=== PATIENT | male | born 1965 | race Caucasian/White ===

== ENCOUNTER 2016-12-12 03:50 | Inpatient (IN) | payer OTHER ==
[~2016-12-12] VITALS: Ht 175.3 cm; Wt 91.7 kg
[~2016-12-12 03:50] MED LIST: ASPCH81X PO; CETI10CA PO; CRAN500C2 PO; DOXA-10 PO; EPP3/2 IM; GABA1CAP5 PO; GINK40TA3 PO; GLUCPOW41 PO; MELO7.5T5 PO; MISC1CAP60 PO; PRLSR20 PO; [UNRECOGNIZED DRUG - OTHER] PO
[2016-12-12] MEDS ORDERED: HYDROmorphone INJ 1 MG/ML SYR IV STA (04:02)
[2016-12-12] MEDS ORDERED: SODIUM CHLORIDE 0.9% 1000ML 1,000 ML IV STA (04:02)
[2016-12-12] MEDS ORDERED: ONDANSETRON INJ 2 MG/ML 2 ML VIAL IV STA (04:02)
[2016-12-12 04:26] LABS: BASO % 1.1 %; BASO ABS # 0.07 K/uL (0-0.2); COMPLETE YES; EOS % 4.6 %; HEMATOCRIT 41.9 % (42-52); IG% 0.2 %; LYMPH % 36.6 %; LYMPH ABS # 2.39 K/uL (1.2-3.4); MEAN CELL VOLUME 88.2 fL (80-100); MEAN CORPUSCULAR HEMOGLOBIN 31.2 pg (25-34); MEAN CORPUSCULAR HGB CONC 35.3 g/dl (32-36); MEAN PLATELET VOLUME 10.2 fL (7.4-10.4); MONO % 10.4 %; NEUT % 47.1 %; PLATELET COUNT 273 K/uL (130-400); RED BLOOD COUNT 4.75 M/uL (4.7-6.1); WHITE BLOOD COUNT 6.53 K/uL (4.8-10.8)
[2016-12-12] MEDS ORDERED: HYDROmorphone INJ 0.5 MG/0.5 ML SYR IV STA (04:49)
[2016-12-12 04:50] LABS: ALKALINE PHOSPHATASE 101 U/L (45-117); ALT/SGPT 53 U/L (12-78); AST/SGOT 28 U/L (15-37); BLOOD UREA NITROGEN 9 mg/dl (7-18); BUN/CREATININE RATIO 12.3 (10-20); CALCIUM 8.9 mg/dl (8.5-10.1); CARBON DIOXIDE 23 mmol/L (21-32); CHLORIDE 107 mmol/L (98-107); CREATININE 0.76 mg/dl (0.60-1.40); GLUCOSE 107 mg/dl (70-99)
[2016-12-12 04:53] LABS: POTASSIUM 4.1 mmol/L (3.5-5.1); SODIUM 142 mmol/L (136-145)
[2016-12-12] MEDS ORDERED: HYDROmorphone INJ 2 MG/ML SYR/VIAL IV PRN (05:00)
--- NOTE | 2016-12-12 05:21 | EMERGENCY ROOM VISIT NOTE ---
History First contact with patient: 03:57 Chief Complaint: ABDOMINAL PAIN Stated Complaint: PANCREATITIS Nursing Triage Summary: Pt presents with c/o epigastric pain to back, nausea, bloating. Pt states sx began at 0100. Hx of pancreatitis, feels similar. History of Present Illness The patient is a 51 year old male who presents to the Emergency Room with complaints of severe sudden onset of epigastric pain that radiates to his back currently 9 out of 10. Nothing makes it better or worse. Complains of nausea. Symptoms feel similar to his prior pancreatitis. He is status post cholecystectomy. No real alcohol intake. Patient denies chest pain, dyspnea, fever, chills, urinary symptoms, diarrhea. No new Medications. Review of Systems See HPI for pertinent positives & negatives. A total of 10 systems reviewed and were otherwise negative. Past Medical/Surgical History Medical Problems: (1) Chronic back pain (2) Chronic prostatitis (3) Disc displacement, lumbar (4) Neurogenic bladder (5) Pancreatitis Surgical Problems: (1) H/O vasectomy (2) History of inguinal hernia repair, bilateral Cholecystectomy Family History Diabetes mellitus FH: heart disease FHx: cancer Stroke Social History Smoking Status: Never Smoker Alcohol Use: occasionally Drug Use: none Marital Status: Housing Status: lives with family Occupation Status: employed Current/Historical Medications Scheduled Aspirin (Aspirin Chewable), 81 MG PO QAM Cranberry (Vaccinium Macrocarp (Cranberry), 1,000 MG PO BID Doxazosin Mesylate (Doxazosin Mesylate), 8 MG PO HS Epinephrine (Epipen), 0.3 MG IM UD Gabapentin (Neurontin), 400 MG PO TID Ginkgo Biloba (Ginkoba), 40 MG PO QAM Chjrgishwby-Xekxnztdudt-Cernpb (Glucosamine & Chrondroiti), 1 TAB PO QAM Misc Natural Products (Saw [place]), 1 CAP PO QAM Omeprazole (Prilosec), 20 MG PO QAM Jad's Wort ([place] Perf ([place] Wort), 1,000 MG PO BID Scheduled PRN Cetirizine Hcl (Zyrtec Allergy), 10 MG PO DAILY PRN Meloxicam (Mobic), 7.5 MG PO BID PRN for Pain Allergies Coded Allergies: BEE STING (Verified Allergy, Severe, "PASSED OUT", 11/23/16) NO KNOWN DRUG ALLERGIES (Verified Allergy, Unknown, ., 11/23/16) Physical Exam Vital Signs Date Time Temp Pulse Resp B/P (MAP) Pulse Ox O2 Delivery O2 Flow Rate FiO2 12/12/16 04:35 94 14 93 12/12/16 04:31 170/108 12/12/16 04:20 96 19 96 12/12/16 04:12 Room Air 12/12/16 04:05 106 14 96 Room Air 12/12/16 04:05 103 12/12/16 04:04 140/119 12/12/16 03:53 36.4 123 18 174/100 94 Room Air Physical Exam VITALS: Vitals are noted on the nurse's note and reviewed by myself. Vital signs stable. GENERAL: White male who appears in pain, in no acute distress, nondiaphoretic, well-developed well-nourished. SKIN: The skin was without rashes, erythema, edema, or bruising. There is no tenting of the skin. Capillary reflex less than 2 seconds. HEAD: Normocephalic atraumatic. EARS: External auditory canals clear, tympanic membranes pearly eng without erythema or effusion bilaterally. EYES: Pupils equal round and reactive to light and accommodation. Conjunctivae without injection, sclerae without icterus. Extraocular movements intact. NOSE: Patent, turbinates without inflammation or discharge. MOUTH: Mucous membranes moist. . Pharynx without erythema or exudate. Uvula midline. Airway patent. Tongue does not deviate. NECK: Supple without nuchal rigidity. No lymphadenopathy. No thyromegaly. Cervical spine is nontender. No JVD. HEART: Regular rate and rhythm without murmurs gallops or rubs. LUNGS: Clear to auscultation bilaterally without wheezes, rales or rhonchi. No dullness to percussion. No retractions or accessory muscle use. ABDOMEN: Positive bowel sounds x 4. Normal tympanic percussion. Soft, tender to palpation epigastric region, no CVA tenderness, without masses or organomegaly. Yuan sign negative. No guarding or rebound tenderness. MUSCULOSKELETAL: No muscle atrophy, erythema, or edema noted. NEURO: Patient was alert and oriented to person place and time. Normal sensation to light and sharp touch. No focal neurological deficits. Medical Decision & Procedures Laboratory Results 12/12/16 04:00 Red Blood Count 4.75, Mean Corpuscular Volume 88.2, Mean Corpuscular Hemoglobin 31.2, Mean Corpuscular Hemoglobin Concent 35.3, Mean Platelet Volume 10.2, Neutrophils (%) (Auto) 47.1, Lymphocytes (%) (Auto) 36.6, Monocytes (%) (Auto) 10.4, Eosinophils (%) (Auto) 4.6, Basophils (%) (Auto) 1.1, Neutrophils # (Auto ) 3.08, Lymphocytes # (Auto) 2.39, Monocytes # (Auto) 0.68, Eosinophils # (Auto ) 0.30, Basophils # (Auto) 0.07 12/12/16 04:00 Test 12/12/16 04:00 12/12/16 04:12 12/12/16 04:13 White Blood Count 6.53 K/uL (4.8-10.8) Red Blood Count 4.75 M/uL (4.7-6.1) Hemoglobin 14.8 g/dL (14.0-18.0) Hematocrit 41.9 % (42-52) Mean Corpuscular Volume 88.2 fL (80-100) Mean Corpuscular Hemoglobin 31.2 pg (25-34) Mean Corpuscular Hemoglobin Concent 35.3 g/dl (32-36) Platelet Count 273 K/uL (130-400) Mean Platelet Volume 10.2 fL (7.4-10.4) Neutrophils (%) (Auto) 47.1 % Lymphocytes (%) (Auto) 36.6 % Monocytes (%) (Auto) 10.4 % Eosinophils (%) (Auto) 4.6 % Basophils (%) (Auto) 1.1 % Neutrophils # (Auto) 3.08 K/uL (1.4-6.5) Lymphocytes # (Auto) 2.39 K/uL (1.2-3.4) Monocytes # (Auto) 0.68 K/uL (0.11-0.59) Eosinophils # (Auto) 0.30 K/uL (0-0.5) Basophils # (Auto) 0.07 K/uL (0-0.2) RDW Standard Deviation 41.3 fL (36.4-46.3) RDW Coefficient of Variation 12.8 % (11.5-14.5) Immature Granulocyte % (Auto) 0.2 % Immature Granulocyte # (Auto) 0.01 K/uL (0.00-0.02) Anion Gap 12.0 mmol/L (3-11) Est Creatinine Clear Calc Drug Dose 128.7 ml/min Estimated GFR () 122.4 Estimated GFR (Non- 105.6 BUN/Creatinine Ratio 12.3 (10-20) Calcium Level 8.9 mg/dl (8.5-10.1) Total Bilirubin 0.4 mg/dl (0.2-1) Direct Bilirubin < 0.1 mg/dl (0-0.2) Aspartate Amino Transf (AST/SGOT) 28 U/L (15-37) Alanine Aminotransferase (ALT/SGPT) 53 U/L (12-78) Alkaline Phosphatase 101 U/L (45-117) Total Protein 7.4 gm/dl (6.4-8.2) Albumin 3.9 gm/dl (3.4-5.0) Lipase 1430 U/L (73-393) Chemistry Specimen Hemolysis Bedside Lactic Acid Venous 1.22 mmol/L (0.90-1.70) Bedside Troponin I < 0.030 ng/ml (0-0.045) Medications Administered Medications (Trade) Dose Ordered Sig/Fredis Route Start Time Stop Time Status Last Admin Dose Admin Hydromorphone HCl (Dilaudid Inj) 1 mg NOW STAT IV 12/12/16 04:02 12/12/16 04:05 DC 12/12/16 04:19 1 MG Ondansetron HCl (Zofran Inj) 4 mg NOW STAT IV 12/12/16 04:02 12/12/16 04:05 DC 12/12/16 04:22 4 MG Sodium Chloride 1,000 ml @ 999 mls/hr Q1H1M STAT IV 12/12/16 04:02 12/12/16 05:02 DC 12/12/16 04:18 999 MLS/HR ED Course Prior records/ancillary studies reviewed. Triage Nursing notes reviewed. Additional history obtained from family. The patient's history was concerning for abdominal pain. Differential diagnosis: Etiologies such as appendicitis, diverticulitis, PUD, biliary pathology, UTI, pancreatitis, obstruction, mesenteric ischemia, aortic pathology, infections, inflammatory bowel disease, renal colic, as well as others were entertained. Physical examination findings: As above. ER treatment provided: Dilaudid, Zofran, IV fluids On reassessment the patient felt better. Diagnostics interpreted by me: ECG: Normal sinus, normal intervals, left axis deviation, no acute ST-T wave changes, rate of 115. Impression sinus tachycardia with a left axis deviation interpreted by myself The labs revealed elevated lipase. Stable H&H. Negative troponin Imaging studies: Chest x-ray with no acute consolidation, pneumothorax or free air per my interpretation Ultrasound was read by stat radiology Consultation: A consultation was placed with the [facility], Dr. Ohara. The case was discussed and diagnostics were reviewed. The patient was evaluated in the ER for further treatment. Exam and history seem consistent with acute pancreatitis. Patient was still in severe amount of pain. He was given a few rounds of pain meds. He will be evaluated by medicine. He was hydrated as above. No leukocytosis. Stable H& H. Negative troponin. He's had prior CT imaging of his pancreas before. Patient does not drink alcohol. By the evaluation outlined above emergent etiologies such as appendicitis, diverticulitis, PUD, biliary pathology, UTI, obstruction, mesenteric ischemia , aortic pathology, infections, inflammatory bowel disease, renal colic, as well as others were deemed relatively unlikely. The pt informed about the findings as listed above. All questions were answered and pleased with the treatment. Case reviewed with my attending Medical Decision As above Impression Primary Impression: Pancreatitis Departure Information Dispostion Being Evaluated By Hospitalist Condition FAIR Referrals Ancelmo Roche, D.OMónica (PCP) Patient Instructions My [facility] Problem Qualifiers Primary Impression: Pancreatitis Chronicity: acute Pancreatitis type: unspecified pancreatitis type Acute pancreatitis complication: unspecified Qualified Codes: K85.90 - Acute pancreatitis without necrosis or infection, unspecified
--- NOTE | 2016-12-12 05:28 | DIAGNOSTIC IMAGING REPORT ---
CHEST ONE VIEW PORTABLE CLINICAL HISTORY: CHEST PAIN pain COMPARISON STUDY: 06/08/2012 FINDINGS: The bones soft tissues and hemidiaphragms are normal. The cardiomediastinal silhouette is normal. The lungs are clear. The pulmonary vasculature is normal. IMPRESSION: Negative chest. The above report was generated using voice recognition software. It may contain grammatical, syntax or spelling errors. Electronically signed by: Bala Zhang M.D. 12/12/2016 5:27 AM Dictated Date/Time: 12/12/2016 5:26 AM
--- NOTE | 2016-12-12 06:10 | DIAGNOSTIC IMAGING REPORT ---
ABDOMEN LIMITED (US) HISTORY: Pain. Nausea. ? pancreatitis. COMPARISON: CT 09/04/2015 FINDINGS: Pancreas: Poorly seen due to overlying bowel content. Liver: Fatty infiltration. Gallbladder: Prior cholecystectomy. CBD: 11 mm. Possibly in part due to patient's surgical post cholecystectomy history.. Right kidney: No hydronephrosis. IMPRESSION: Prior cholecystectomy. Prominence of the common bile duct possibly on a postoperative basis. Poor visibility of the pancreas due to overlying bowel content. The above report was generated using voice recognition software. It may contain grammatical, syntax or spelling errors. Electronically signed by: Bala Zhang M.D. 12/12/2016 6:09 AM Dictated Date/Time: 12/12/2016 6:07 AM
[2016-12-12] MEDS ORDERED: CETIRIZINE HCL 10 MG TAB PO PRN (06:15)
[2016-12-12] MEDS ORDERED: ALUMINUM/MAGNESIUM/SIMETH (MAALOX MAX) 30 ML UDC PO PRN (06:15)
[2016-12-12] MEDS ORDERED: MAGNESIUM HYDROXIDE SUSP 30 ML UDC PO PRN (06:15)
[2016-12-12] MEDS ORDERED: EPINEPHRINE ADULT AUTO-INJECT 0.3 MG SYR IM SCH (06:15)
[2016-12-12 06:23] LABS: URINE APPEARANCE CLEAR (CLEAR); URINE BILIRUBIN NEG (NEG); URINE COLOR YELLOW; URINE NITRITE NEG (NEG); URINE PH 6.5 (4.5-7.5); URINE SPECIFIC GRAVITY 1.016 (1.000-1.030); UROBILINOGEN NEG (NEG); ZZUR CULT IF INDIC CLEAN CATCH NO
[2016-12-12 06:26] LABS: MANUAL MICROSCOPIC REQUIRED? NO; REVIEW REQ? NO
[2016-12-12 06:55] VITALS: O2SAT 96; Ht 175.3 cm; Wt 91.7 kg
[2016-12-12] MEDS ORDERED: EPINEPHRINE ADULT AUTO-INJECT 0.3 MG SYR IM PRN (07:15)
[2016-12-12 07:30] VITALS: BP 160/106; PULSE 89; TEMP 37.2; O2SAT 92
--- NOTE | 2016-12-12 07:30 | HISTORY & PHYSICAL EXAMINATION ---
DATE OF ADMISSION: 12/12/2016 CHIEF COMPLAINT: Severe abdominal pain. HISTORY OF PRESENT ILLNESS: This is a 51-year-old male with past medical history significant for pancreatitis, chronic prostatitis, family history of diabetes, osteoarthritis, chronic back pain, history of neurogenic bladder and lumbar disc displacement, presents with abdominal pain. The patient states today morning he woke up around 1:00 with severe epigastric abdominal pain radiating to his back and radiating to his lower abdomen associated with some nausea, so he came to the ER .Currently pain is under control. Denies any vomiting, no diarrhea or constipation, no blood or black stools. He uses straight cath twice daily as he has a history of neurogenic bladder, history of chronic prostatitis and he thinks he may getting UTI. Denies any fever, chills, no cough, no chest pain, no shortness of breath, has some dry cough, no shortness of breath, has some sore throat, no difficulty swallowing, has some headaches, no dizziness, no blurred vision, no skin rash, no swelling in the legs. Currently resting comfortably and hemodynamically stable. ALLERGIES: BEE STINGS. PAST MEDICAL HISTORY: As mentioned above. PAST SURGICAL HISTORY: Cystoscopy, endoscopic ultrasound draining gallbladder sludge, status post laparoscopic cholecystectomy, hernia repair, vasectomy. MEDICATIONS: Currently the patient is on Meloxicam 7.5 mg p.o. daily, doxazosin 8 mg p.o. daily, omeprazole 20 mg p.o. daily, Flonase 2 sprays into each nostril daily, ginkgo biloba daily, epinephrine p.r.n. for allergies, saw [place] 1 tablet b.i.d., Neurontin 400 mg p.o. t.i.d., Zyrtec allergy 10 mg p.o. daily, cranberry 1000 mg p.o. daily, aspirin 81 mg p.o. daily, [place] Wort 1000 mg p.o. daily, Glucosamine chondroitin 1 tablet b.i.d. FAMILY HISTORY: Significant for father had rheumatoid arthritis, rheumatic arthropathy, skin cancer. Mother had stroke, Alzheimer disease, hypertension and diabetes, rheumatoid arthritis. Brother has skin cancer, heart attack and obesity. SOCIAL HISTORY: . No smoking history. Alcohol occasional. No drug use. REVIEW OF SYMPTOMS: As per HPI. PHYSICAL EXAMINATION: GENERAL: The patient is of moderate build, not in distress. VITAL SIGNS: Temperature 36.4, pulse 94, respiratory rate 14, blood pressure 175/108, oxygen 96% on room air. HEENT: No pallor, no icterus. Pupils equal, round react to light. NECK: No JVD, no neck masses, no carotid bruits. CARDIOVASCULAR: S1, S2 heard, regular rate and rhythm, no murmur, no gallop. RESPIRATORY SYSTEM: Normal AP diameter. No accessory muscle use. No wheezing, no crackles. ABDOMEN: Soft, bowel sounds present. Tenderness in the epigastric region. No guarding, no rigidity. No distention. CENTRAL NERVOUS SYSTEM: Cranial nerves II-XII grossly intact. Nonfocal. EXTREMITIES: No edema, no erythema. LABORATORY DATA: WBC 6.5, hemoglobin 14.8, hematocrit 41.9, platelets 273. Sodium 142, potassium 4.1, chloride 107, bicarbonate 23, BUN 9, creatinine 0.7 and serum glucose 107. Point of care lactic acid 1.22, calcium 8.9, total bilirubin 0.4, direct bilirubin less than 0.1, AST 28, ALT 23, alkaline phosphatase 101, point of care troponin I less than 0.03, lipase 14, 30. Chest x-ray, negative chest. Ultrasound of the abdomen unremarkable. ASSESSMENT AND PLAN: This is a 51-year-old male who presents with severe abdominal pain. 1. Several abdominal pain, possible pancreatitis, recurrent pancreatitis, lipase is elevated. Gallbladder ultrasound is unremarkable, but pancreas is poorly visible. Will place on aggressive IV fluids, IV pain medication, IV antiemetics, IV Zantac and consult GI for further recommendations . HAd EUS done after first episode of pancreatitis about a year ago, which showed gallbladder sludge and patient is status post cholecystectomy. 3. Neurogenic Bladder, straight cath as needed. 4. History of chronic prostatitis. We will check urinalysis and cultures. Continue doxazosin. 5. Gastroesophageal reflux disease. IV Zantac. 6. Family history of diabetes. We will check HbA1c levels. 7. Deep venous thrombosis prophylaxis, with Lovenox. DISPOSITION: Admit to medical floor. Expect to discharge home and follow with his family doctor. Level 1 full code. MTDD
[2016-12-12 08:24] LABS: ESTIMATED AVERAGE GLUCOSE 108 mg/dl; HA1C FLAG Normal (Normal)
[2016-12-12] MEDS: LACTATED RINGER'S 1000ML 1,000 ML IV SCH ×4 (08:30→21:47)
[2016-12-12 08:47] LABS: PROTHROMBIN TIME (PATIENT) 10.7 SECONDS (9.0-12.0)
[2016-12-12] MEDS ORDERED: INFLUENZA VIRUS QUAD VACCINE 0.5 ML SYR IM. ONE (09:00)
[2016-12-12] MEDS ORDERED: INFLUENZA ADMINISTRATION CHARGE ONE (09:00)
[2016-12-12 10:05] LABS: CHOLESTEROL/HDL RATIO 4.9
[2016-12-12] MEDS ORDERED: LACTATED RINGER'S 1000ML 1,000 ML IV SCH ×2 (10:15→11:15)
--- NOTE | 2016-12-12 10:33 | DIAGNOSTIC IMAGING REPORT ---
MRCP CLINICAL HISTORY: eval for p divisum (recurrent pancreatitits) pain TECHNIQUE: MRI multi axial acquisition COMPARISON STUDY: 04/01/2015 FINDINGS: Interval cholecystectomy. Signal characteristics of the liver are unremarkable. Signal characteristics of the pancreas are unremarkable. Prominence of the biliary ductal system on a postoperative basis. No evidence for choledocholithiasis. Spleen is uniform. Kidneys negative for hydronephrosis. No evidence of dilatation of the pancreatic duct. No significant upper abdominal adenopathy. No evidence for pancreas divisum IMPRESSION: 1. Findings consistent with a prior cholecystectomy. 2. Prominence of the common bile duct felt to be on a postoperative basis. 3. No evidence for choledocholithiasis. 4. Normal pancreas. 5. No evidence for pancreas divisum. The above report was generated using voice recognition software. It may contain grammatical, syntax or spelling errors. Electronically signed by: Bala Zhang M.D. 12/12/2016 10:31 AM Dictated Date/Time: 12/12/2016 10:24 AM
[2016-12-12] MEDS: ASPIRIN 81 MG ECTAB PO SCH (10:39)
[2016-12-12] MEDS: GABAPENTIN 400 MG CAP PO SCH ×3 (10:39→21:00)
[2016-12-12] MEDS: ENOXAPARIN 40 MG/0.4 ML SYR SQ SCH (10:40)
--- NOTE | 2016-12-12 10:43 | GASTROINTESTINAL CONSULTATION ---
DATE OF CONSULTATION: 12/12/2016 CHIEF COMPLAINT: Abdominal discomfort. HISTORY OF PRESENT ILLNESS: The patient is a 51-year-old male with a past medical history notable for chronic prostatitis, osteoarthritis and a neurogenic bladder who presented to the Emergency Room early this morning with a complaint of sudden onset of abdominal pain. The patient had a similar episode 1.5 years ago and ultimately underwent a cholecystectomy for biliary sludge. The patient reports that he was in his usual state of health until early this morning when he awoke suddenly with pain radiating towards his back. He denies having fevers, chills, sweats, difficulty with swallowing or pain with swallowing. The patient denies having dark sticky stool or bright red blood from the back side. There is no family history of recurrent or chronic pancreatitis. The patient does not know if there is a family history of pancreatic divisum or hypercholesterolemia. PAST MEDICAL HISTORY: 1. Chronic prostatitis. 2. Osteoarthritis. 3. Neurogenic bladder. OUTPATIENT MEDICATIONS: 1. Meloxicam 7.5 mg daily. 2. Doxazosin 8 mg daily. 3. Omeprazole 20 mg daily. 4. Flonase 2 mg preparatory 2 sprays twice daily. 5. Saw [place] 1 tablet twice daily. 6. Neurontin 40 mg 3 times daily. 7. Zyrtec 10 mg daily. 8. Cranberry 1000 mg daily. 9. Aspirin 81 mg daily. 10. Glucosamine 1 tablet twice daily. PAST SURGICAL HISTORY: 1. Cystoscopy: 2. Cholecystectomy. 3. Bilateral inguinal hernia repair. 4. Vasectomy. FAMILY HISTORY: Father with rheumatoid arthritis. Mother with CVA, Alzheimer disease, hypertension and diabetes. Brother with myocardial infarction and obesity. SOCIAL HISTORY: The patient is a nonsmoker. The patient does drink limited amounts of alcohol. ALLERGIES: BEES. REVIEW OF SYSTEMS: GENERAL: No fevers, no chills. CARDIAC: No chest pain. No shortness of breath. PULMONARY: No cough. ENDOCRINE: No polyuria, no polydipsia. MUSCULOSKELETAL: No new joint pains. No new muscle pains. PSYCHIATRIC: No depression. No suicidal ideation. GASTROINTESTINAL: Please see history of present illness. ENT: No difficulty swallowing. No changes in hearing. NEUROLOGIC: No headaches noted by patient. No double vision noted by patient. DERMATOLOGIC: No rashes noted by patient. PHYSICAL EXAMINATION: VITAL SIGNS: 36.4, pulse 102, respiratory rate 12, blood pressure is 137/98, pulse ox is 96% on room air. HEENT: No scleral icterus noted. No JVD noted. LUNGS: Clear to auscultation. CARDIAC: Tachycardic without murmur. ABDOMEN: Soft, tender to palpation. No peritoneal signs. EXTREMITIES: No edema noted. DERMATOLOGY: No rashes noted. NEUROLOGIC: Cranial nerves grossly intact. Motor grossly intact. LABORATORIES: White blood cell count 6.5, hemoglobin is 14.8, hematocrit is 41.9, platelet count is 273. Sodium is 142, potassium is 4.1, chloride is 107, BUN is 9, creatinine is 0.76, calcium is 8.9, total bilirubin 0.4, AST 28, ALT is 53, alkaline phosphatase 101, lipase 1430. PT is 10.7, INR 1.0. IMAGING STUDIES: Ultrasound dated December 12, CBD 11 mm. No obvious stones seen. IMPRESSION: A 51-year-old male presenting with a second episode of acute pancreatitis. The etiology could be from a number of things to consider such as pancreatic divisum, hypertriglyceridemia, or perhaps autoimmune pancreatitis. Another possibility would be retained gallstone given his prior history of cholecystectomy. Finally, the last consideration would be peptic ulcer disease given his use of meloxicam as an outpatient. RECOMMENDATIONS: 1. N.p.o. 2. Continue with IV hydration. I would recommend at least another liter bolus given his tachycardia. 3. MRCP ordered. 4. Lipid panel ordered. 5. EMMANUEL, total IgG total ordered. Please call with any questions or concerns. MTDD
[2016-12-12] MEDS: RANITIDINE IV 50 MG in DEXTROSE 5% 100ML 100 ML IV SCH ×2 (10:45→18:29)
[2016-12-12] MEDS: HYDROmorphone INJ 0.5 MG/0.5 ML SYR IV PRN ×2 (10:49→23:17)
[2016-12-12 14:57] VITALS: BP 157/98; PULSE 77; TEMP 36.8; O2SAT 93
[2016-12-12] MEDS: ONDANSETRON INJ 2 MG/ML 2 ML VIAL IV PRN ×2 (15:26→23:17)
[2016-12-12 15:30] VITALS: O2SAT 93
[2016-12-12 19:54] VITALS: TEMP 36.8
[2016-12-12] MEDS ORDERED: PROMETHAZINE HCL INJ 12.5 MG in SODIUM CHLORIDE 0.9% 50ML 50 ML IV PRN (20:00)
[2016-12-12] MEDS: DOXAZosin MESYLATE TAB 4 MG TAB PO SCH (21:00)
[2016-12-12 23:52] VITALS: BP 150/88; PULSE 84; TEMP 37; O2SAT 94
[2016-12-13] VITALS (11 sets, daily range): BP systolic 151–179; BP diastolic 92–123; PULSE 65–77; TEMP 36.4–36.6; O2SAT 92–95
[2016-12-13] MEDS: LACTATED RINGER'S 1000ML 1,000 ML IV SCH ×5 (02:05→22:23)
[2016-12-13] MEDS: RANITIDINE IV 50 MG in DEXTROSE 5% 100ML 100 ML IV SCH (02:05)
[2016-12-13 07:00] LABS: BASO % 0.7 %; BASO ABS # 0.04 K/uL (0-0.2); COMPLETE YES; EOS % 2.6 %; HEMATOCRIT 37.3 % (42-52); IG% 0.2 %; LYMPH % 31.2 %; LYMPH ABS # 1.82 K/uL (1.2-3.4); MEAN CORPUSCULAR HEMOGLOBIN 30.7 pg (25-34); MEAN CORPUSCULAR HGB CONC 34.9 g/dl (32-36); MEAN PLATELET VOLUME 10.1 fL (7.4-10.4); MONO % 10.6 %; NEUT % 54.7 %; PLATELET COUNT 236 K/uL (130-400); RED BLOOD COUNT 4.24 M/uL (4.7-6.1); WHITE BLOOD COUNT 5.84 K/uL (4.8-10.8)
[2016-12-13 07:31] LABS: BUN/CREATININE RATIO 10.7 (10-20); CALCIUM 8.4 mg/dl (8.5-10.1); CREATININE 0.64 mg/dl (0.60-1.40); MAGNESIUM 1.9 mg/dl (1.8-2.4); POTASSIUM 3.4 mmol/L (3.5-5.1)
--- NOTE | 2016-12-13 09:01 | Gastroenterology Progress Note ---
Progress Note Date of Service: Dec 13, 2016 Subjective Pt evaluation today including: conversation w/ patient, physical exam The patient notes that his symptoms seem to be much better today. He still some epigastric discomfort but is now passing some flatus no bowel movements as of yet. Review of Systems Constitutional: No fever, No sweats Respiratory: + problem reported, No cough, No wheezing, No dyspnea at rest Cardiac: No chest pain, No PND, No palpitations Medications Current Inpatient Medications Medications (Trade) Dose Ordered Sig/Fredis Route Start Time Stop Time Status Last Admin Dose Admin Enoxaparin Sodium (Lovenox Inj) 40 mg Q24H SQ 12/12/16 09:00 01/11/17 08:59 12/12/16 10:40 40 MG Acetaminophen (Tylenol Tab) 650 mg Q4H PRN PO 12/12/16 06:15 01/11/17 06:14 Al Hydrox/Mg Hydrox/Simethicone (Maalox Max Susp) 15 ml Q4H PRN PO 12/12/16 06:15 01/11/17 06:14 Magnesium Hydroxide (Milk Of Magnesia Susp) 30 ml Q6H PRN PO 12/12/16 06:15 01/11/17 06:14 Ondansetron HCl (Zofran Inj) 4 mg Q6H PRN IV 12/12/16 06:15 01/11/17 06:14 12/12/16 23:17 4 MG Lactated Ringer's 1,000 ml @ 200 mls/hr Q5H IV 12/12/16 06:15 01/11/17 06:14 12/13/16 07:31 200 MLS/HR Hydromorphone HCl (Dilaudid Inj) 0.5 mg Q3HWA PRN IV 12/12/16 06:15 12/26/16 06:14 12/12/16 23:17 0.5 MG Aspirin (Ecotrin Tab) 81 mg QAM PO 12/12/16 09:00 01/11/17 08:59 12/12/16 10:39 81 MG Gabapentin (Neurontin Cap) 400 mg TID PO 12/12/16 09:00 01/11/17 08:59 12/12/16 13:45 400 MG Cetirizine HCl (zyrTEC TAB) 10 mg DAILY PRN PO 12/12/16 06:15 11/27/17 06:14 Doxazosin Mesylate (Cardura Tab) 8 mg HS PO 12/12/16 21:00 01/11/17 20:59 Epinephrine (Epipen) 0.3 mg UD PRN IM 12/12/16 07:15 01/11/17 07:14 Famotidine 20 mg/ Syringe 5 ml @ 2.5 mls/min BID IV 12/13/16 09:00 01/12/17 08:59 Promethazine HCl 12.5 mg/Sodium Chloride 50.5 ml @ 204 mls/hr Q6H PRN IV 12/12/16 20:00 01/11/17 19:59 12/12/16 20:29 204 MLS/HR Objective Vital Signs Date Time Temp Pulse Resp B/P (MAP) Pulse Ox O2 Delivery O2 Flow Rate FiO2 12/13/16 07:00 36.6 77 16 151/94 (113) 94 Room Air 12/12/16 23:52 37.0 84 16 150/88 (108) 94 Room Air 12/12/16 23:15 Room Air 12/12/16 19:54 36.8 12/12/16 15:30 93 Room Air 12/12/16 14:57 36.8 77 18 157/98 (117) 93 Room Air Physical Exam General Appearance: no apparent distress Eyes: PERRL Neck: no JVD Respiratory/Chest: lungs clear Cardiovascular: regular rate, rhythm, no edema Abdomen: soft, + tenderness (mild tenderness, much improved from yesterday) Neurologic/Psych: oriented x 3 Skin: no jaundice Laboratory Results Last 24 Hours Test 12/12/16 09:12 12/13/16 06:25 Triglycerides Level 159 mg/dl Cholesterol Level 173 mg/dl HDL Cholesterol 35 mg/dl LDL Cholesterol, Calculated 106 mg/dl VLDL Cholesterol, Calculated 32 mg/dl Cholesterol/HDL Ratio 4.9 White Blood Count 5.84 K/uL Red Blood Count 4.24 M/uL Hemoglobin 13.0 g/dL Hematocrit 37.3 % Mean Corpuscular Volume 88.0 fL Mean Corpuscular Hemoglobin 30.7 pg Mean Corpuscular Hemoglobin Concent 34.9 g/dl Platelet Count 236 K/uL Mean Platelet Volume 10.1 fL Neutrophils (%) (Auto) 54.7 % Lymphocytes (%) (Auto) 31.2 % Monocytes (%) (Auto) 10.6 % Eosinophils (%) (Auto) 2.6 % Basophils (%) (Auto) 0.7 % Neutrophils # (Auto) 3.20 K/uL Lymphocytes # (Auto) 1.82 K/uL Monocytes # (Auto) 0.62 K/uL Eosinophils # (Auto) 0.15 K/uL Basophils # (Auto) 0.04 K/uL RDW Standard Deviation 40.6 fL RDW Coefficient of Variation 12.7 % Immature Granulocyte % (Auto) 0.2 % Immature Granulocyte # (Auto) 0.01 K/uL Sodium Level 140 mmol/L Potassium Level 3.4 mmol/L Chloride Level 105 mmol/L Carbon Dioxide Level 28 mmol/L Anion Gap 7.0 mmol/L Blood Urea Nitrogen 7 mg/dl Creatinine 0.64 mg/dl Est Creatinine Clear Calc Drug Dose 152.8 ml/min Estimated GFR () 131.4 Estimated GFR (Non- 113.4 BUN/Creatinine Ratio 10.7 Random Glucose 91 mg/dl Calcium Level 8.4 mg/dl Magnesium Level 1.9 mg/dl Lipase 146 U/L Assessment and Plan 51-year-old male with idiopathic pancreatitis. His symptoms do seem to be somewhat improved today. Given this I would suggest that you advance him to a clear liquid diet today and continue with IV hydration. Recommendations Advance to a clear liquid diet today Continue with IV hydration Outpatient endoscopic ultrasound in 6-8 weeks Autoimmune studies still pending Please call with any questions or concerns today
[2016-12-13] MEDS: ENOXAPARIN 40 MG/0.4 ML SYR SQ SCH (09:47)
[2016-12-13] MEDS: GABAPENTIN 400 MG CAP PO SCH ×3 (09:47→20:57)
[2016-12-13] MEDS: ASPIRIN 81 MG ECTAB PO SCH (09:48)
[2016-12-13] MEDS: FAMOTIDINE IV INJ 20 MG in SYRINGE 3 ML IV SCH ×2 (10:04→21:01)
--- NOTE | 2016-12-13 11:05 | Progress Note ---
Medicine Progress Note Date & Time of Visit: Dec 13, 2016 at 10:55 . Subjective Better. Abdominal pain improved. No nausea or vomiting. No diarrhea. No fever. No chest pain. No cough or SOB. Ambulating. . Objective Last 8 Hrs Date Time Temp Pulse Resp B/P (MAP) Pulse Ox O2 Delivery O2 Flow Rate FiO2 12/13/16 07:00 36.6 77 16 151/94 (113) 94 Room Air Physical Exam: General- no distress Eyes- anicteric Lungs- clear Heart- RRR Abdomen- quiet bowel sounds, nondistended, minimal epigastric tenderness without rebound or guarding Extremities- no pretibial edema or calf tenderness Neuro- alert . Laboratory Results: Last 24 Hours Test 12/13/16 06:25 White Blood Count 5.84 K/uL Red Blood Count 4.24 M/uL Hemoglobin 13.0 g/dL Hematocrit 37.3 % Mean Corpuscular Volume 88.0 fL Mean Corpuscular Hemoglobin 30.7 pg Mean Corpuscular Hemoglobin Concent 34.9 g/dl Platelet Count 236 K/uL Mean Platelet Volume 10.1 fL Neutrophils (%) (Auto) 54.7 % Lymphocytes (%) (Auto) 31.2 % Monocytes (%) (Auto) 10.6 % Eosinophils (%) (Auto) 2.6 % Basophils (%) (Auto) 0.7 % Neutrophils # (Auto) 3.20 K/uL Lymphocytes # (Auto) 1.82 K/uL Monocytes # (Auto) 0.62 K/uL Eosinophils # (Auto) 0.15 K/uL Basophils # (Auto) 0.04 K/uL RDW Standard Deviation 40.6 fL RDW Coefficient of Variation 12.7 % Immature Granulocyte % (Auto) 0.2 % Immature Granulocyte # (Auto) 0.01 K/uL Sodium Level 140 mmol/L Potassium Level 3.4 mmol/L Chloride Level 105 mmol/L Carbon Dioxide Level 28 mmol/L Anion Gap 7.0 mmol/L Blood Urea Nitrogen 7 mg/dl Creatinine 0.64 mg/dl Est Creatinine Clear Calc Drug Dose 152.8 ml/min Estimated GFR () 131.4 Estimated GFR (Non- 113.4 BUN/Creatinine Ratio 10.7 Random Glucose 91 mg/dl Calcium Level 8.4 mg/dl Magnesium Level 1.9 mg/dl Lipase 146 U/L Assessment & Plan PANCREATITIS Presented with severe abdominal pain and nausea. Previous episode of gallstone pancreatitis Mar 2015, s/p lap cholecystectomy May 2015. Lipase 1430. Initially managed with bowel rest, IV fluids, analgesics. GI consulted. US showed postsurgical changes, mild prominence of CBD. MRCP showed similar prominence of CBD, no choledocholithiasis. Clinically improved. Lipase today 146. Start clear liquids. Continue IV fluids. Outpatient EUS recommended by GI. NEUROGENIC BLADDER Continue straight cath regimen. VTE PROPHYLAXIS SCD's. Ambulate. DISPOSITION Expected discharge to home. Family Medicine follow-up with Dr. Ancelmo Roche. Follow-up with Florin RILEY. . Current Inpatient Medications: Current Inpatient Medications Medications (Trade) Dose Ordered Sig/Fredis Route Start Time Stop Time Status Last Admin Dose Admin Enoxaparin Sodium (Lovenox Inj) 40 mg Q24H SQ 12/12/16 09:00 01/11/17 08:59 12/13/16 09:47 40 MG Acetaminophen (Tylenol Tab) 650 mg Q4H PRN PO 12/12/16 06:15 01/11/17 06:14 Al Hydrox/Mg Hydrox/Simethicone (Maalox Max Susp) 15 ml Q4H PRN PO 12/12/16 06:15 01/11/17 06:14 Magnesium Hydroxide (Milk Of Magnesia Susp) 30 ml Q6H PRN PO 12/12/16 06:15 01/11/17 06:14 Ondansetron HCl (Zofran Inj) 4 mg Q6H PRN IV 12/12/16 06:15 01/11/17 06:14 12/12/16 23:17 4 MG Lactated Ringer's 1,000 ml @ 200 mls/hr Q5H IV 12/12/16 06:15 01/11/17 06:14 12/13/16 07:31 200 MLS/HR Hydromorphone HCl (Dilaudid Inj) 0.5 mg Q3HWA PRN IV 12/12/16 06:15 12/26/16 06:14 12/12/16 23:17 0.5 MG Aspirin (Ecotrin Tab) 81 mg QAM PO 12/12/16 09:00 01/11/17 08:59 12/13/16 09:48 81 MG Gabapentin (Neurontin Cap) 400 mg TID PO 12/12/16 09:00 01/11/17 08:59 12/13/16 09:47 400 MG Cetirizine HCl (zyrTEC TAB) 10 mg DAILY PRN PO 12/12/16 06:15 01/11/17 06:14 Doxazosin Mesylate (Cardura Tab) 8 mg HS PO 12/12/16 21:00 01/11/17 20:59 Epinephrine (Epipen) 0.3 mg UD PRN IM 12/12/16 07:15 01/11/17 07:14 Famotidine 20 mg/ Syringe 5 ml @ 2.5 mls/min BID IV 12/13/16 09:00 01/12/17 08:59 12/13/16 10:04 2.5 MLS/MIN Promethazine HCl 12.5 mg/Sodium Chloride 50.5 ml @ 204 mls/hr Q6H PRN IV 12/12/16 20:00 01/11/17 19:59 12/12/16 20:29 204 MLS/HR
[2016-12-13] MEDS: DOXAZosin MESYLATE TAB 4 MG TAB PO SCH (20:57)
[2016-12-14] VITALS (7 sets, daily range): BP systolic 152–165; BP diastolic 93–105; PULSE 79–99; TEMP 36.2–37.3; O2SAT 93–95
[2016-12-14] MEDS: LACTATED RINGER'S 1000ML 1,000 ML IV SCH ×3 (03:26→14:13)
[2016-12-14 06:24] LABS: BASO % 1.2 %; BASO ABS # 0.06 K/uL (0-0.2); COMPLETE YES; EOS % 4.7 %; HEMATOCRIT 40.5 % (42-52); IG% 0.4 %; LYMPH % 32.8 %; LYMPH ABS # 1.69 K/uL (1.2-3.4); MEAN CORPUSCULAR HEMOGLOBIN 30.2 pg (25-34); MEAN CORPUSCULAR HGB CONC 34.3 g/dl (32-36); MEAN PLATELET VOLUME 9.7 fL (7.4-10.4); MONO % 11.6 %; NEUT % 49.3 %; PLATELET COUNT 262 K/uL (130-400); WHITE BLOOD COUNT 5.16 K/uL (4.8-10.8)
[2016-12-14 07:02] LABS: BLOOD UREA NITROGEN 7 mg/dl (7-18); BUN/CREATININE RATIO 8.7 (10-20); CALCIUM 8.5 mg/dl (8.5-10.1); CARBON DIOXIDE 26 mmol/L (21-32); CHLORIDE 107 mmol/L (98-107); CREATININE 0.77 mg/dl (0.60-1.40); GLUCOSE 93 mg/dl (70-99); SODIUM 141 mmol/L (136-145)
[2016-12-14 07:28] LABS: POTASSIUM 3.4 mmol/L (3.5-5.1)
[2016-12-14] MEDS: ACETAMINOPHEN 325 MG TAB PO PRN ×2 (07:41→22:31)
--- NOTE | 2016-12-14 09:29 | Gastroenterology Progress Note ---
Progress Note Date of Service: Dec 14, 2016 Subjective Pt evaluation today including: conversation w/ patient, physical exam, chart review, lab review Pt seen and evaluated, chart reviewed. Diet was advanced to clear liquid, pt tolerated. This AM he notes no epigastric pain unless there is deep palpation. Reports no n/v, no n/v after PO intake. No fever, chills, CP, SOB. Has shingles. Wants to advance diet, wants to go home. Review of Systems Constitutional: No fever, No chills Respiratory: No cough, No shortness of breath Cardiac: No chest pain, No edema Abdomen: No pain, No nausea, No vomiting, No diarrhea, No constipation, No GI bleeding Medications Current Inpatient Medications Medications (Trade) Dose Ordered Sig/Fredis Route Start Time Stop Time Status Last Admin Dose Admin Enoxaparin Sodium (Lovenox Inj) 40 mg Q24H SQ 12/12/16 09:00 01/11/17 08:59 12/13/16 09:47 40 MG Acetaminophen (Tylenol Tab) 650 mg Q4H PRN PO 12/12/16 06:15 01/11/17 06:14 12/14/16 07:41 650 MG Al Hydrox/Mg Hydrox/Simethicone (Maalox Max Susp) 15 ml Q4H PRN PO 12/12/16 06:15 01/11/17 06:14 Magnesium Hydroxide (Milk Of Magnesia Susp) 30 ml Q6H PRN PO 12/12/16 06:15 01/11/17 06:14 Ondansetron HCl (Zofran Inj) 4 mg Q6H PRN IV 12/12/16 06:15 01/11/17 06:14 12/12/16 23:17 4 MG Lactated Ringer's 1,000 ml @ 200 mls/hr Q5H IV 12/12/16 06:15 01/11/17 06:14 12/14/16 07:41 200 MLS/HR Hydromorphone HCl (Dilaudid Inj) 0.5 mg Q3HWA PRN IV 12/12/16 06:15 12/26/16 06:14 12/12/16 23:17 0.5 MG Aspirin (Ecotrin Tab) 81 mg QAM PO 12/12/16 09:00 01/11/17 08:59 12/13/16 09:48 81 MG Gabapentin (Neurontin Cap) 400 mg TID PO 12/12/16 09:00 01/11/17 08:59 12/13/16 20:57 400 MG Cetirizine HCl (zyrTEC TAB) 10 mg DAILY PRN PO 12/12/16 06:15 01/11/17 06:14 Doxazosin Mesylate (Cardura Tab) 8 mg HS PO 12/12/16 21:00 01/11/17 20:59 12/13/16 20:57 8 MG Epinephrine (Epipen) 0.3 mg UD PRN IM 12/12/16 07:15 01/11/17 07:14 Famotidine 20 mg/ Syringe 5 ml @ 2.5 mls/min BID IV 12/13/16 09:00 01/12/17 08:59 12/13/16 21:01 2.5 MLS/MIN Promethazine HCl 12.5 mg/Sodium Chloride 50.5 ml @ 204 mls/hr Q6H PRN IV 12/12/16 20:00 01/11/17 19:59 12/12/16 20:29 204 MLS/HR Valacyclovir HCl (Valtrex Tab) 1,000 mg TID PO 12/14/16 09:00 12/24/16 08:59 Objective Vital Signs Date Time Temp Pulse Resp B/P (MAP) Pulse Ox O2 Delivery O2 Flow Rate FiO2 12/14/16 07:28 Room Air 12/14/16 07:14 36.8 79 19 164/105 (124) 95 Room Air 12/14/16 00:15 Room Air 12/13/16 22:59 36.4 65 16 155/95 (115) 92 Room Air 12/13/16 16:13 170/94 (119) 12/13/16 15:45 95 Room Air 12/13/16 15:30 179/123 (141) 12/13/16 15:09 36.6 70 18 160/104 (122) 95 Room Air 174/106 (128) 12/13/16 14:12 154/102 (119) 12/13/16 14:04 77 16 175/100 (125) 95 Room Air 169/108 (128) 12/13/16 12:42 164/96 (118) 12/13/16 12:25 36.6 76 16 156/92 (113) 95 Room Air Physical Exam General Appearance: no apparent distress Eyes: PERRL ENT: hearing grossly normal Neck: supple Respiratory/Chest: lungs clear Cardiovascular: regular rate, rhythm Abdomen: normal bowel sounds, soft Neurologic/Psych: alert, normal mood/affect, oriented x 3 Skin: normal color Laboratory Results Last 24 Hours Test 12/14/16 06:12 12/14/16 07:05 White Blood Count 5.16 K/uL Red Blood Count 4.60 M/uL Hemoglobin 13.9 g/dL Hematocrit 40.5 % Mean Corpuscular Volume 88.0 fL Mean Corpuscular Hemoglobin 30.2 pg Mean Corpuscular Hemoglobin Concent 34.3 g/dl Platelet Count 262 K/uL Mean Platelet Volume 9.7 fL Neutrophils (%) (Auto) 49.3 % Lymphocytes (%) (Auto) 32.8 % Monocytes (%) (Auto) 11.6 % Eosinophils (%) (Auto) 4.7 % Basophils (%) (Auto) 1.2 % Neutrophils # (Auto) 2.55 K/uL Lymphocytes # (Auto) 1.69 K/uL Monocytes # (Auto) 0.60 K/uL Eosinophils # (Auto) 0.24 K/uL Basophils # (Auto) 0.06 K/uL RDW Standard Deviation 40.6 fL RDW Coefficient of Variation 12.7 % Immature Granulocyte % (Auto) 0.4 % Immature Granulocyte # (Auto) 0.02 K/uL Sodium Level 141 mmol/L Potassium Level mmol/L 3.4 mmol/L Chloride Level 107 mmol/L Carbon Dioxide Level 26 mmol/L Anion Gap 8.0 mmol/L Blood Urea Nitrogen 7 mg/dl Creatinine 0.77 mg/dl Est Creatinine Clear Calc Drug Dose 127.0 ml/min Estimated GFR () 121.8 Estimated GFR (Non- 105.1 BUN/Creatinine Ratio 8.7 Random Glucose 93 mg/dl Calcium Level 8.5 mg/dl Magnesium Level mg/dl 2.0 mg/dl Assessment and Plan 51-year-old male with idiopathic pancreatitis. His symptoms do seem to be somewhat improved yesterday on evaluation and diet was advanced to clear liquid --> pt tolerated, denies n/v only has abd pain with deep palpation Advance to low fat diet as tolerated Continue with IV hydration until discharge Outpatient endoscopic ultrasound in 6-8 weeks Follow up autoimmune studies Please call with any questions or concerns, GI will follow during admission I performed a history and physical examination of the patient, including specifically on physical exam - soft abdomen, and my impression and plan are as below. I have discussed the patient's management with Miranda. Please refer to the physician admissions assistant's note for the documented findings and plan of care. Patient with mild idiopathic pancreatitis but report occasional use of liquor. He feels better with down trending BUN and Hct. Tolerated liquids. Will need EUS as outpatient. Avoid Alcohol.
[2016-12-14] MEDS: FAMOTIDINE IV INJ 20 MG in SYRINGE 3 ML IV SCH ×2 (09:42→20:36)
[2016-12-14] MEDS: GABAPENTIN 400 MG CAP PO SCH ×3 (09:42→20:31)
[2016-12-14] MEDS: ASPIRIN 81 MG ECTAB PO SCH (09:42)
[2016-12-14] MEDS: ENOXAPARIN 40 MG/0.4 ML SYR SQ SCH (09:43)
--- NOTE | 2016-12-14 10:39 | Progress Note ---
Medicine Progress Note Date & Time of Visit: Dec 14, 2016 at 10:25 . Subjective Noted to have vesicular rash last night. Started on valacyclovir. Has some itching from the rash, but no severe pain. Abdominal pain improved. No nausea or vomiting. Moved bowels. No fever. Continuing straight caths for urinary retention. . Objective Last 8 Hrs Date Time Temp Pulse Resp B/P (MAP) Pulse Ox O2 Delivery O2 Flow Rate FiO2 12/14/16 10:07 36.2 96 20 154/93 (113) 95 Room Air 12/14/16 07:28 Room Air 12/14/16 07:14 36.8 79 19 164/105 (124) 95 Room Air Physical Exam: General- no distress Eyes- anicteric Lungs- clear Heart- RRR Abdomen- + bowel sounds, nondistended, mild epigastric tenderness without rebound or guarding Extremities- no pretibial edema or calf tenderness Neuro- alert . Laboratory Results: Last 24 Hours Test 12/14/16 06:12 12/14/16 07:05 White Blood Count 5.16 K/uL Red Blood Count 4.60 M/uL Hemoglobin 13.9 g/dL Hematocrit 40.5 % Mean Corpuscular Volume 88.0 fL Mean Corpuscular Hemoglobin 30.2 pg Mean Corpuscular Hemoglobin Concent 34.3 g/dl Platelet Count 262 K/uL Mean Platelet Volume 9.7 fL Neutrophils (%) (Auto) 49.3 % Lymphocytes (%) (Auto) 32.8 % Monocytes (%) (Auto) 11.6 % Eosinophils (%) (Auto) 4.7 % Basophils (%) (Auto) 1.2 % Neutrophils # (Auto) 2.55 K/uL Lymphocytes # (Auto) 1.69 K/uL Monocytes # (Auto) 0.60 K/uL Eosinophils # (Auto) 0.24 K/uL Basophils # (Auto) 0.06 K/uL RDW Standard Deviation 40.6 fL RDW Coefficient of Variation 12.7 % Immature Granulocyte % (Auto) 0.4 % Immature Granulocyte # (Auto) 0.02 K/uL Sodium Level 141 mmol/L Potassium Level mmol/L 3.4 mmol/L Chloride Level 107 mmol/L Carbon Dioxide Level 26 mmol/L Anion Gap 8.0 mmol/L Blood Urea Nitrogen 7 mg/dl Creatinine 0.77 mg/dl Est Creatinine Clear Calc Drug Dose 127.0 ml/min Estimated GFR () 121.8 Estimated GFR (Non- 105.1 BUN/Creatinine Ratio 8.7 Random Glucose 93 mg/dl Calcium Level 8.5 mg/dl Magnesium Level mg/dl 2.0 mg/dl Assessment & Plan PANCREATITIS Presented with severe abdominal pain and nausea. Previous episode of gallstone pancreatitis Mar 2015, s/p lap cholecystectomy May 2015. Lipase 1430. Initially managed with bowel rest, IV fluids, analgesics. GI consulted. US showed postsurgical changes, mild prominence of CBD. MRCP showed similar prominence of CBD, no choledocholithiasis. Clinically improved. Lipase yesterday 146. Tolerating clear liquids. Advance diet. Continue IV fluids. Outpatient EUS recommended by GI. NEUROGENIC BLADDER Continue straight cath regimen. HERPES ZOSTER Small cluster vesicular lesions left back (paraspinal / lumbar). Rx with valacyclovir 1000 mg TID x 7 days. Consider vaccine per guidelines after resolution. HYPERTENSION [added entry SHERLEY 12/14/16 @ 10:40] BP's fluctuating. IV fluids, stress, discomfort probably contributing factor. Missed one dose of doxazosin due to GI symptoms; resumed last night. Follow. HYPOKALEMIA [added entry SHERLEY 12/14/16 @ 10:40] K 3.4. Replace. Follow. VTE PROPHYLAXIS SCD's. Ambulate. DISPOSITION Expected discharge to home. Family Medicine follow-up with Dr. Ancelmo Roche. Follow-up with Florin RILEY. . Current Inpatient Medications: Current Inpatient Medications Medications (Trade) Dose Ordered Sig/Fredis Route Start Time Stop Time Status Last Admin Dose Admin Enoxaparin Sodium (Lovenox Inj) 40 mg Q24H SQ 12/12/16 09:00 01/11/17 08:59 12/14/16 09:43 40 MG Acetaminophen (Tylenol Tab) 650 mg Q4H PRN PO 12/12/16 06:15 01/11/17 06:14 12/14/16 07:41 650 MG Al Hydrox/Mg Hydrox/Simethicone (Maalox Max Susp) 15 ml Q4H PRN PO 12/12/16 06:15 01/11/17 06:14 Magnesium Hydroxide (Milk Of Magnesia Susp) 30 ml Q6H PRN PO 12/12/16 06:15 01/11/17 06:14 Ondansetron HCl (Zofran Inj) 4 mg Q6H PRN IV 12/12/16 06:15 01/11/17 06:14 12/12/16 23:17 4 MG Lactated Ringer's 1,000 ml @ 200 mls/hr Q5H IV 12/12/16 06:15 01/11/17 06:14 12/14/16 07:41 200 MLS/HR Hydromorphone HCl (Dilaudid Inj) 0.5 mg Q3HWA PRN IV 12/12/16 06:15 12/26/16 06:14 12/12/16 23:17 0.5 MG Aspirin (Ecotrin Tab) 81 mg QAM PO 12/12/16 09:00 01/11/17 08:59 12/14/16 09:42 81 MG Gabapentin (Neurontin Cap) 400 mg TID PO 12/12/16 09:00 01/11/17 08:59 12/14/16 09:42 400 MG Cetirizine HCl (zyrTEC TAB) 10 mg DAILY PRN PO 12/12/16 06:15 01/11/17 06:14 Doxazosin Mesylate (Cardura Tab) 8 mg HS PO 12/12/16 21:00 01/11/17 20:59 12/13/16 20:57 8 MG Epinephrine (Epipen) 0.3 mg UD PRN IM 12/12/16 07:15 01/11/17 07:14 Famotidine 20 mg/ Syringe 5 ml @ 2.5 mls/min BID IV 12/13/16 09:00 01/12/17 08:59 12/14/16 09:42 2.5 MLS/MIN Promethazine HCl 12.5 mg/Sodium Chloride 50.5 ml @ 204 mls/hr Q6H PRN IV 12/12/16 20:00 01/11/17 19:59 12/12/16 20:29 204 MLS/HR Valacyclovir HCl (Valtrex Tab) 1,000 mg TID PO 12/14/16 09:00 12/24/16 08:59 12/14/16 09:43 1,000 MG
[2016-12-14] MEDS ORDERED: POTASSIUM CHLORIDE 10 MEQ TABCR PO ONE (11:15)
[2016-12-14] MEDS: DOXAZosin MESYLATE TAB 4 MG TAB PO SCH (20:31)
[2016-12-14] MEDS: POTASSIUM CHLORIDE 10 MEQ TABCR PO SCH (20:32)
[2016-12-14 22:47] LABS: URINE APPEARANCE CLOUDY (CLEAR); URINE BILIRUBIN NEG (NEG); URINE COLOR RED; URINE NITRITE POS (NEG); URINE PH 8.5 (4.5-7.5); URINE SPECIFIC GRAVITY 1.008 (1.000-1.030); UROBILINOGEN NEG (NEG); ZZUR CULT IF INDIC CLEAN CATCH YES
[2016-12-14 22:48] LABS: MANUAL MICROSCOPIC REQUIRED? NO; REVIEW REQ? NO
[2016-12-14 22:49] LABS: SULFASALICYLIC ACID POS (NEG)
[2016-12-15] MEDS: LACTATED RINGER'S 1000ML 1,000 ML IV SCH (00:13)
[2016-12-15] MEDS ORDERED: PIPERACILLIN/TAZOBACTAM 4.5 GM/100ML D5W IV STA (03:12)
[2016-12-15 06:02] LABS: HEMATOCRIT 37.7 % (42-52); MEAN CELL VOLUME 87.5 fL (80-100); MEAN CORPUSCULAR HEMOGLOBIN 29.7 pg (25-34); MEAN PLATELET VOLUME 9.9 fL (7.4-10.4); PLATELET COUNT 252 K/uL (130-400); RED BLOOD COUNT 4.31 M/uL (4.7-6.1); WHITE BLOOD COUNT 7.95 K/uL (4.8-10.8)
[2016-12-15 06:42] LABS: BUN/CREATININE RATIO 7.6 (10-20); CALCIUM 8.5 mg/dl (8.5-10.1); CREATININE 0.74 mg/dl (0.60-1.40); POTASSIUM 3.3 mmol/L (3.5-5.1)
[2016-12-15 07:28] VITALS: BP 161/95; PULSE 89; TEMP 37; O2SAT 95
[2016-12-15] MEDS ORDERED: PIPERACILL/TAZOBAC IV 3.375 GM in DEXTROSE 5% 100ML IV SCH (08:00)
[2016-12-15] MEDS: FAMOTIDINE IV INJ 20 MG in SYRINGE 3 ML IV SCH (08:20)
[2016-12-15] MEDS: ASPIRIN 81 MG ECTAB PO SCH (08:49)
[2016-12-15] MEDS: POTASSIUM CHLORIDE 10 MEQ TABCR PO SCH (08:51)
[2016-12-15] MEDS: GABAPENTIN 400 MG CAP PO SCH ×2 (08:51→13:16)
[2016-12-15] MEDS: ENOXAPARIN 40 MG/0.4 ML SYR SQ SCH (08:52)
[2016-12-15] MEDS ORDERED: PIPERACILL/TAZOBAC CONSULT ACTIVE PRN (09:00)
--- NOTE | 2016-12-15 09:00 | Gastroenterology Progress Note ---
Progress Note Date of Service: Dec 15, 2016 Subjective Pt evaluation today including: conversation w/ patient, physical exam, chart review, lab review pt seen and evaluated, chart reviewed. He reports from a GI stand point he is feeling well. Diet was advanced last night to low fat, he tolerated well. No nausea, no vomiting. No abdominal pain. He does note discomfort from shingles and is now symptomatic from a UTI. He notes lower pelvic pressure and some lower back pain, he notes his urine was tinted red. Tells me he frequents UTI if he misses his scheduling for straight cath. Review of Systems Constitutional: No fever, No chills Respiratory: No cough, No shortness of breath Cardiac: No chest pain, No edema Abdomen: No pain, No nausea, No vomiting, No diarrhea, No constipation Male : + dysuria, + urinary frequency, + problem reported Medications Current Inpatient Medications Medications (Trade) Dose Ordered Sig/Fredis Route Start Time Stop Time Status Last Admin Dose Admin Enoxaparin Sodium (Lovenox Inj) 40 mg Q24H SQ 12/12/16 09:00 01/11/17 08:59 12/15/16 08:52 40 MG Acetaminophen (Tylenol Tab) 650 mg Q4H PRN PO 12/12/16 06:15 01/11/17 06:14 12/14/16 22:31 650 MG Al Hydrox/Mg Hydrox/Simethicone (Maalox Max Susp) 15 ml Q4H PRN PO 12/12/16 06:15 01/11/17 06:14 Magnesium Hydroxide (Milk Of Magnesia Susp) 30 ml Q6H PRN PO 12/12/16 06:15 01/11/17 06:14 Ondansetron HCl (Zofran Inj) 4 mg Q6H PRN IV 12/12/16 06:15 01/11/17 06:14 12/12/16 23:17 4 MG Lactated Ringer's 1,000 ml @ 100 mls/hr Q10H IV 12/12/16 06:15 01/11/17 06:14 12/15/16 00:13 100 MLS/HR Hydromorphone HCl (Dilaudid Inj) 0.5 mg Q3HWA PRN IV 12/12/16 06:15 12/26/16 06:14 12/12/16 23:17 0.5 MG Aspirin (Ecotrin Tab) 81 mg QAM PO 12/12/16 09:00 01/11/17 08:59 12/15/16 08:49 81 MG Gabapentin (Neurontin Cap) 400 mg TID PO 12/12/16 09:00 01/11/17 08:59 12/15/16 08:51 400 MG Cetirizine HCl (zyrTEC TAB) 10 mg DAILY PRN PO 12/12/16 06:15 01/11/17 06:14 Doxazosin Mesylate (Cardura Tab) 8 mg HS PO 12/12/16 21:00 01/11/17 20:59 12/14/16 20:31 8 MG Epinephrine (Epipen) 0.3 mg UD PRN IM 12/12/16 07:15 01/11/17 07:14 Famotidine 20 mg/ Syringe 5 ml @ 2.5 mls/min BID IV 12/13/16 09:00 01/12/17 08:59 12/15/16 08:20 2.5 MLS/MIN Promethazine HCl 12.5 mg/Sodium Chloride 50.5 ml @ 204 mls/hr Q6H PRN IV 12/12/16 20:00 01/11/17 19:59 12/12/16 20:29 204 MLS/HR Valacyclovir HCl (Valtrex Tab) 1,000 mg TID PO 12/14/16 09:00 12/24/16 08:59 12/15/16 08:52 1,000 MG Potassium Chloride (Klor-Con M10) 20 meq BID PO 12/14/16 21:00 01/13/17 20:59 12/15/16 08:51 20 MEQ Piperacillin Sod/ Tazobactam Sod (Consult) 1 ea DAILY PRN N/A 12/15/16 09:00 01/14/17 08:59 Piperacillin Sod/ Tazobactam Sod 3.375 gm/Dextrose 115 ml @ 28.75 mls/ hr Q8H IV 12/15/16 08:00 12/25/16 07:59 12/15/16 08:20 28.75 MLS/HR Objective Vital Signs Date Time Temp Pulse Resp B/P (MAP) Pulse Ox O2 Delivery O2 Flow Rate FiO2 12/15/16 07:28 37.0 89 18 161/95 (117) 95 Room Air 12/15/16 07:25 Room Air 12/15/16 00:10 Room Air 12/14/16 22:56 37.3 99 16 152/93 (112) 93 Room Air 12/14/16 22:25 37.3 12/14/16 21:30 37.2 12/14/16 16:15 95 Room Air 12/14/16 15:32 36.9 96 18 165/94 (117) 95 Room Air 12/14/16 10:07 36.2 96 20 154/93 (113) 95 Room Air Physical Exam General Appearance: no apparent distress Eyes: PERRL ENT: hearing grossly normal Neck: supple Respiratory/Chest: lungs clear, normal breath sounds Cardiovascular: regular rate, rhythm Abdomen: normal bowel sounds, non tender, soft, no organomegaly Neurologic/Psych: alert, normal mood/affect, oriented x 3 Skin: normal color, warm/dry Laboratory Results Last 24 Hours Test 12/15/16 05:28 White Blood Count 7.95 K/uL Red Blood Count 4.31 M/uL Hemoglobin 12.8 g/dL Hematocrit 37.7 % Mean Corpuscular Volume 87.5 fL Mean Corpuscular Hemoglobin 29.7 pg Mean Corpuscular Hemoglobin Concent 34.0 g/dl RDW Standard Deviation 40.7 fL RDW Coefficient of Variation 12.6 % Platelet Count 252 K/uL Mean Platelet Volume 9.9 fL Sodium Level 140 mmol/L Potassium Level 3.3 mmol/L Chloride Level 107 mmol/L Carbon Dioxide Level 23 mmol/L Anion Gap 10.0 mmol/L Blood Urea Nitrogen 6 mg/dl Creatinine 0.74 mg/dl Est Creatinine Clear Calc Drug Dose 132.2 ml/min Estimated GFR () 123.8 Estimated GFR (Non- 106.8 BUN/Creatinine Ratio 7.6 Random Glucose 100 mg/dl Calcium Level 8.5 mg/dl Magnesium Level 2.0 mg/dl Assessment and Plan 51-year-old male with idiopathic pancreatitis. His symptoms do seem to be somewhat improved yesterday on evaluation and diet was advanced to clear liquid --> pt tolerated, denies n/v only has abd pain with deep palpation. Diet was advanced and pt was tolerated. Low fat diet as tolerated Outpatient endoscopic ultrasound in 6-8 weeks Follow up autoimmune studies GI to sign off. No GI contraindication to discharge. I have discussed the patient's management with Miranda. Please refer to the PA' s note for the documented findings and plan of care. Outpatient EUS.
--- NOTE | 2016-12-15 11:38 | Progress Note ---
Medicine Progress Note Date & Time of Visit: Dec 15, 2016 at ~ 10:30 . Subjective History of recurrent UTI's due to neurogenic bladder and straight caths. Chills, urethral burning with cath, suprapubic discomfort last night. Urine culture sent. Started on IV piperacillin / tazobactam. GI symptoms improved. No further epigastric pain. No nausea, vomiting, diarrhea. Mild discomfort from zoster lesion on back. . Objective Last 8 Hrs Date Time Temp Pulse Resp B/P (MAP) Pulse Ox O2 Delivery O2 Flow Rate FiO2 12/15/16 07:28 37.0 89 18 161/95 (117) 95 Room Air 12/15/16 07:25 Room Air Physical Exam: General- no distress Eyes- anicteric Lungs- clear Heart- RRR Abdomen- + bowel sounds, nondistended, nontender Extremities- no pretibial edema or calf tenderness Neuro- alert Skin- healing vesicular lesions left back . Laboratory Results: Last 24 Hours Test 12/15/16 05:28 White Blood Count 7.95 K/uL Red Blood Count 4.31 M/uL Hemoglobin 12.8 g/dL Hematocrit 37.7 % Mean Corpuscular Volume 87.5 fL Mean Corpuscular Hemoglobin 29.7 pg Mean Corpuscular Hemoglobin Concent 34.0 g/dl RDW Standard Deviation 40.7 fL RDW Coefficient of Variation 12.6 % Platelet Count 252 K/uL Mean Platelet Volume 9.9 fL Sodium Level 140 mmol/L Potassium Level 3.3 mmol/L Chloride Level 107 mmol/L Carbon Dioxide Level 23 mmol/L Anion Gap 10.0 mmol/L Blood Urea Nitrogen 6 mg/dl Creatinine 0.74 mg/dl Est Creatinine Clear Calc Drug Dose 132.2 ml/min Estimated GFR () 123.8 Estimated GFR (Non- 106.8 BUN/Creatinine Ratio 7.6 Random Glucose 100 mg/dl Calcium Level 8.5 mg/dl Magnesium Level 2.0 mg/dl Assessment & Plan PANCREATITIS Presented with severe abdominal pain and nausea. Previous episode of gallstone pancreatitis Mar 2015, s/p lap cholecystectomy May 2015. Lipase 1430. Initially managed with bowel rest, IV fluids, analgesics. GI consulted. US showed postsurgical changes, mild prominence of CBD. MRCP showed similar prominence of CBD, no choledocholithiasis. Clinically improved. Lipase improved to 146. Diet advanced and tolerated. Outpatient EUS recommended by GI. NEUROGENIC BLADDER Continue straight cath regimen. HERPES ZOSTER Small cluster vesicular lesions left back (paraspinal / lumbar). Rx with valacyclovir 1000 mg TID x 7 days. Consider vaccine per guidelines after resolution. HYPERTENSION BP's fluctuating. IV fluids, stress, discomfort probably contributing factor. Missed one dose of doxazosin due to GI symptoms; resumed. Follow and titrate Rx. HYPOKALEMIA K 3.3. Replace. Follow. UTI Secondary to neurogenic bladder / straight caths. Afebrile. Hemodynamically stable. Received 2 doses of piperacillin / tazobactam. Discharge on TMS/sulfa pending culture results. VTE PROPHYLAXIS SCD's. Ambulate. DISPOSITION Discharge to home. Family Medicine follow-up with Dr. Ancelmo Roche. Follow-up with Florin RILEY. . Consultants: GI . Procedures: IV fluids IV meds US abdomen MRCP . Current Inpatient Medications: Current Inpatient Medications Medications (Trade) Dose Ordered Sig/Fredis Route Start Time Stop Time Status Last Admin Dose Admin Enoxaparin Sodium (Lovenox Inj) 40 mg Q24H SQ 12/12/16 09:00 01/11/17 08:59 12/15/16 08:52 40 MG Acetaminophen (Tylenol Tab) 650 mg Q4H PRN PO 12/12/16 06:15 01/11/17 06:14 12/14/16 22:31 650 MG Al Hydrox/Mg Hydrox/Simethicone (Maalox Max Susp) 15 ml Q4H PRN PO 12/12/16 06:15 01/11/17 06:14 Magnesium Hydroxide (Milk Of Magnesia Susp) 30 ml Q6H PRN PO 12/12/16 06:15 01/11/17 06:14 Ondansetron HCl (Zofran Inj) 4 mg Q6H PRN IV 12/12/16 06:15 01/11/17 06:14 12/12/16 23:17 4 MG Lactated Ringer's 1,000 ml @ 100 mls/hr Q10H IV 12/12/16 06:15 01/11/17 06:14 12/15/16 00:13 100 MLS/HR Hydromorphone HCl (Dilaudid Inj) 0.5 mg Q3HWA PRN IV 12/12/16 06:15 12/26/16 06:14 12/12/16 23:17 0.5 MG Aspirin (Ecotrin Tab) 81 mg QAM PO 12/12/16 09:00 01/11/17 08:59 12/15/16 08:49 81 MG Gabapentin (Neurontin Cap) 400 mg TID PO 12/12/16 09:00 01/11/17 08:59 12/15/16 08:51 400 MG Cetirizine HCl (zyrTEC TAB) 10 mg DAILY PRN PO 12/12/16 06:15 01/11/17 06:14 Doxazosin Mesylate (Cardura Tab) 8 mg HS PO 12/12/16 21:00 01/11/17 20:59 12/14/16 20:31 8 MG Epinephrine (Epipen) 0.3 mg UD PRN IM 12/12/16 07:15 01/11/17 07:14 Famotidine 20 mg/ Syringe 5 ml @ 2.5 mls/min BID IV 12/13/16 09:00 01/12/17 08:59 12/15/16 08:20 2.5 MLS/MIN Promethazine HCl 12.5 mg/Sodium Chloride 50.5 ml @ 204 mls/hr Q6H PRN IV 12/12/16 20:00 01/11/17 19:59 12/12/16 20:29 204 MLS/HR Valacyclovir HCl (Valtrex Tab) 1,000 mg TID PO 12/14/16 09:00 12/24/16 08:59 12/15/16 08:52 1,000 MG Potassium Chloride (Klor-Con M10) 20 meq BID PO 12/14/16 21:00 01/13/17 20:59 12/15/16 08:51 20 MEQ Piperacillin Sod/ Tazobactam Sod (Consult) 1 ea DAILY PRN N/A 12/15/16 09:00 01/14/17 08:59 Piperacillin Sod/ Tazobactam Sod 3.375 gm/Dextrose 115 ml @ 28.75 mls/ hr Q8H IV 12/15/16 08:00 12/25/16 07:59 12/15/16 08:20 28.75 MLS/HR
[2016-12-15] MEDS ORDERED: SULF800T23 PO (11:42)
[2016-12-15] MEDS ORDERED: VALA1TAB2 PO (11:42)
[2016-12-15] MEDS ORDERED: MCRK/20 PO (11:42)
--- NOTE | 2016-12-15 11:54 | Discharge Instructions ---
Discharge Instructions Date of Service Dec 15, 2016. Admission Reason for Admission: pancreatitis . Discharge Discharge Diagnosis / Problem: pancreatitis, shingles, urinary tract infection Discharge Goals Goal(s): Decrease discomfort, Improve disease control Activity Recommendations Activity Limitations: resume your previous activity . Instructions / Follow-Up Instructions / Follow-Up APPOINTMENTS: FAMILY MEDICINE 12/18/2016 1:20 PM Ancelmo Roche, DO OTHER INSTRUCTIONS: You had pancreatitis (again), but it is getting better. Outpatient EUS (endoscopic ultrasound) recommended and will be scheduled by Gastroenterology. You developed shingles on your back (also know as Herpes zoster or varicella). Take valacyclovir (Valtrex) 3 times a day until finished. You may benefit from vaccination in the future; please discuss with Dr. Roche. You developed a urinary tract infection. Results of urine culture should be back in 2-3 days. Take trimethoprim / sulfamethoxazole (Bactrim DS) twice a day until finished. Drink plenty of fluids. Avoid excessive sun exposure while taking Bactrim. Your potassium level was a bit low. Take potassium chloride twice a day for 1 week. Your blood pressure was high at times. It should improve as you are feeling better. Continue doxazosin (Cardura). Follow blood pressures and let Dr. Roche know if your blood pressures remain high. Seek medical attention if you have: * temperature above 101 * chest pain or trouble breathing * abdominal pain, nausea, vomiting * diarrhea, dark stools or bloody stools * persistent or worsening bladder symptoms (burning, blood, etc) * any unanswered questions or concerns Call 911 if symptoms are severe. Call if you have any questions or problems. My cell # is [phone]. You can also reach a [facility] hospitalist on duty at [facility] 24 hours a day by calling [phone]. Please take good care of yourself. Jhony Bermudez . Current Hospital Diet Patient's current hospital diet: Regular Diet, Low Fat Diet Discharge Diet Recommended Diet: AHA Diet (Heart Healthy) Procedures Procedures Performed: ultrasound abdomen MRCP Pending Studies Studies pending at discharge: yes List of pending studies: results of urine culture should be back by or Wednesday call if you don't get results by Wednesday Laboratory Results Hemoglobin A1c Test 12/12/16 04:00 Range/Units Estimated Average Glucose 108 mg/dl Hemoglobin A1c 5.4 4.5-5.6 % Lipid Panel Test 12/12/16 09:12 Range/Units Triglycerides Level 159 H 0-150 mg/dl Cholesterol Level 173 0-200 mg/dl HDL Cholesterol 35 mg/dl Cholesterol/HDL Ratio 4.9 LDL Cholesterol, Calculated 106 mg/dl Medical Emergencies . Who to Call and When: Medical Emergencies: If at any time you feel your situation is an emergency, please call 911 immediately. . Non-Emergent Contact Non-Emergency issues call your: Primary Care Provider, Housing Management Representative, Hospital Doctor . . "Provider Documentation" section prepared by Jhony Bermudez. . VTE Core Measure Inpt VTE Proph given/why not?: Enoxaparin (Lovenox)SQ, SCD's
[2016-12-15 12:00] VITALS: BP 161/95; PULSE 89; TEMP 37; O2SAT 95
--- NOTE | 2016-12-15 12:06 | Discharge Summary ---
Discharge Summary Date of Service Dec 15, 2016. Discharge Summary Admission Date: Dec 12, 2016 at 06:11 Discharge Date: Dec 15, 2016 Discharge Disposition: Home Principal Diagnosis: pancreatitis OTHER ACUTE DIAGNOSES Herpes zoster UTI hypokalemia . Secondary Diagnoses/Problems: Chronic and Resolved Medical Problems: (1) Chronic back pain Status: Chronic (2) Chronic prostatitis Status: Chronic (3) Disc displacement, lumbar Status: Chronic (4) Essential hypertension Status: Chronic (6) Neurogenic bladder Status: Chronic Surgical Problems: (1) H/O vasectomy Status: Chronic (2) History of inguinal hernia repair, bilateral Status: Chronic (3) Status post cholecystectomy Permanent Comment: Dr. Adeline Swenson May 2015 Status: Chronic . Procedures: IV fluids IV meds US abdomen MRCP . Consultations: GI . Pending Studies/Follow-Up: urine culture results from 12/14/16 pending at time of DC outpatient EUS to be arranged please recheck basic metabolic profile in clinic re: hypokalemia . Medication Reconciliation New Medications: Potassium Chloride (Potassium Chloride ER) 20 Meq Tabcr 20 MEQ PO BID, #14 TAB Sulfa/Trimethoprim (Bactrim Ds 800MG/160MG) Tab 1 TAB PO BID, #14 TAB Valacyclovir Hcl (Valtrex) 1 Gm Tab 1000 MG PO TID, #17 TAB Continued Medications: Aspirin (Aspirin Chewable) 81 Mg Chew 81 MG PO QAM Cetirizine Hcl (Zyrtec Allergy) 10 Mg Cap 10 MG PO DAILY PRN for ALLERGIC REACTION Cranberry (Vaccinium Macrocarp (Cranberry) 500 Mg Cap 1000 MG PO BID Doxazosin Mesylate (Doxazosin Mesylate) 8 Mg Tab 8 MG PO HS Epinephrine (Epipen) 0.3 Mg/0.3 Ml Inj 0.3 MG IM UD, INJ Gabapentin (Neurontin) 400 Mg Cap 400 MG PO TID, CAP Ginkgo Biloba (Ginkoba) 40 Mg Tab 40 MG PO QAM Yfyrhpguoec-Binkmlwiapp-Quvxpi (Glucosamine & Chrondroiti) 1 Pow Pow 1 TAB PO QAM Meloxicam (Mobic) 7.5 Mg Tab 7.5 MG PO BID PRN for Pain, TAB Misc Natural Products (Saw [place]) 1 Cap Cap 1 CAP PO QAM Omeprazole (Prilosec) 20 Mg Capcr 20 MG PO QAM, CAP Jad's Wort ([place]oto Perf ([place] Wort) 1,000 Mg Cap 1000 MG PO BID Admission Information HPI (per Admitting provider): HISTORY OF PRESENT ILLNESS: This is a 51-year-old male with past medical history significant for pancreatitis, chronic prostatitis, family history of diabetes, osteoarthritis, chronic back pain, history of neurogenic bladder and lumbar disc displacement, presents with abdominal pain. The patient states today morning he woke up around 1:00 with severe epigastric abdominal pain radiating to his back and radiating to his lower abdomen associated with some nausea, so he came to the ER .Currently pain is under control. Denies any vomiting, no diarrhea or constipation, no blood or black stools. He uses straight cath twice daily as he has a history of neurogenic bladder, history of chronic prostatitis and he thinks he may getting UTI. Denies any fever, chills, no cough, no chest pain, no shortness of breath, has some dry cough, no shortness of breath, has some sore throat, no difficulty swallowing, has some headaches, no dizziness, no blurred vision, no skin rash, no swelling in the legs. Currently resting comfortably and hemodynamically stable. . Physical Exam (per Admitting): GENERAL: The patient is of moderate build, not in distress. VITAL SIGNS: Temperature 36.4, pulse 94, respiratory rate 14, blood pressure 175/108, oxygen 96% on room air. HEENT: No pallor, no icterus. Pupils equal, round react to light. NECK: No JVD, no neck masses, no carotid bruits. CARDIOVASCULAR: S1, S2 heard, regular rate and rhythm, no murmur, no gallop. RESPIRATORY SYSTEM: Normal AP diameter. No accessory muscle use. No wheezing, no crackles. ABDOMEN: Soft, bowel sounds present. Tenderness in the epigastric region. No guarding, no rigidity. No distention. CENTRAL NERVOUS SYSTEM: Cranial nerves II-XII grossly intact. Nonfocal. EXTREMITIES: No edema, no erythema. . Hospital Course PANCREATITIS Presented with severe abdominal pain and nausea. Previous episode of gallstone pancreatitis Mar 2015, s/p lap cholecystectomy May 2015. Lipase 1430. Initially managed with bowel rest, IV fluids, analgesics. GI consulted. US showed postsurgical changes, mild prominence of CBD. MRCP showed similar prominence of CBD, no choledocholithiasis. Clinically improved. Lipase improved to 146. Diet advanced and tolerated. Outpatient EUS recommended by GI. NEUROGENIC BLADDER Continue straight cath regimen. HERPES ZOSTER Small cluster vesicular lesions left back (paraspinal / lumbar). Rx with valacyclovir 1000 mg TID x 7 days. Consider vaccine per guidelines after resolution. HYPERTENSION BP's fluctuating. IV fluids, stress, discomfort probably contributing factor. Missed one dose of doxazosin due to GI symptoms; resumed. Follow and titrate Rx. HYPOKALEMIA K 3.3. Replace. Follow. UTI Secondary to neurogenic bladder / straight caths. Afebrile. Hemodynamically stable. Received 2 doses of piperacillin / tazobactam. Discharge on TMS/sulfa pending culture results. VTE PROPHYLAXIS SCD's. Ambulate. DISPOSITION Discharge to home. Family Medicine follow-up with Dr. Ancelmo Roche. Follow-up with Florin RILEY. . Total time spent on discharge = 40 min. This includes examination of the patient, discharge planning, medication reconciliation, and communication with other providers. . Discharge Instructions Date of Service Dec 15, 2016. Admission Reason for Admission: pancreatitis . Discharge Discharge Diagnosis / Problem: pancreatitis, shingles, urinary tract infection Discharge Goals Goal(s): Decrease discomfort, Improve disease control Activity Recommendations Activity Limitations: resume your previous activity . Instructions / Follow-Up Instructions / Follow-Up APPOINTMENTS: FAMILY MEDICINE 12/18/2016 1:20 PM Ancelmo Roche, DO OTHER INSTRUCTIONS: You had pancreatitis (again), but it is getting better. Outpatient EUS (endoscopic ultrasound) recommended and will be scheduled by Gastroenterology. You developed shingles on your back (also know as Herpes zoster or varicella). Take valacyclovir (Valtrex) 3 times a day until finished. You may benefit from vaccination in the future; please discuss with Dr. Roche. You developed a urinary tract infection. Results of urine culture should be back in 2-3 days. Take trimethoprim / sulfamethoxazole (Bactrim DS) twice a day until finished. Drink plenty of fluids. Avoid excessive sun exposure while taking Bactrim. Your potassium level was a bit low. Take potassium chloride twice a day for 1 week. Your blood pressure was high at times. It should improve as you are feeling better. Continue doxazosin (Cardura). Follow blood pressures and let Dr. Newhouser know if your blood pressures remain high. Seek medical attention if you have: * temperature above 101 * chest pain or trouble breathing * abdominal pain, nausea, vomiting * diarrhea, dark stools or bloody stools * persistent or worsening bladder symptoms (burning, blood, etc) * any unanswered questions or concerns Call 911 if symptoms are severe. Call if you have any questions or problems. My cell # is [phone]. You can also reach a [facility] hospitalist on duty at [facility] 24 hours a day by calling [phone]. Please take good care of yourself. Jhony Bermudez . Current Hospital Diet Patient's current hospital diet: Regular Diet, Low Fat Diet Discharge Diet Recommended Diet: AHA Diet (Heart Healthy) Procedures Procedures Performed: ultrasound abdomen MRCP Pending Studies Studies pending at discharge: yes List of pending studies: results of urine culture should be back by or Wednesday call if you don't get results by Wednesday Laboratory Results Hemoglobin A1c Test 12/12/16 04:00 Range/Units Estimated Average Glucose 108 mg/dl Hemoglobin A1c 5.4 4.5-5.6 % Lipid Panel Test 12/12/16 09:12 Range/Units Triglycerides Level 159 H 0-150 mg/dl Cholesterol Level 173 0-200 mg/dl HDL Cholesterol 35 mg/dl Cholesterol/HDL Ratio 4.9 LDL Cholesterol, Calculated 106 mg/dl Medical Emergencies . Who to Call and When: Medical Emergencies: If at any time you feel your situation is an emergency, please call 911 immediately. . Non-Emergent Contact Non-Emergency issues call your: Primary Care Provider, Crane Manager, Hospital Doctor . . "Provider Documentation" section prepared by Jhony Bermudez. . VTE Core Measure Inpt VTE Proph given/why not?: Enoxaparin (Lovenox)SQ, SCD's .
--- NOTE | 2016-12-16 08:05 | EDITING REQUIRED CODING QUERY ---
PRESENT ON ADMISSION QUERY To promote full compliance with coding requirements relating to patient care, physician participation is requested in all cases of linen checker uncertainty. Please assist us with the question(s) below: Please place an X within the parenthesis (x). Coding Question: 1. "UTI Secondary to neurogenic bladder / straight caths", was documented in the PN and DC summary. Please clarify below to the best of your knowledge. Thank you for your help! ( ) UTI due to neurogenic bladder ( ) Present On Admission (x ) Not Present On Admission ( ) Clinically Undetermined ( ) UTI due to straight cath (complication) ( ) Present On Admission (x ) Not Present On Admission ( ) Clinically Undetermined ( ) UTI, other (explain) ( ) Present On Admission ( ) Not Present On Admission ( ) Clinically Undetermined Thank you! Clarissa Gupta *Definition of the present on admission (POA)-Present on admission is defined as present at the time the order for inpatient admission occurs. Conditions that develop during an outpatient encounter prior to a written order for inpatient admission (including emergency department, observation, or outpatient surgery) are considered present on admission.
[2016-12-16 14:31] LABS: IGG SERUM 753 mg/dL (694-1618)
== END 2016-12-15 13:40 | disposition home or self-care (01) | DRG 440 ==
LOC: C.EDB 03:51 → C.MSN 06:11 → ENRESERV 06:37
PROVIDERS: ADMIT Hospitalist; ATTEND Hospitalist
DX: K85.00 Idiopathic acute pancreatitis without necrosis or infection (principal); T83.518A Infection and inflammatory reaction due to other urinary catheter, initial encounter; N39.0 Urinary tract infection, site not specified; B02.9 Zoster without complications; N31.9 Neuromuscular dysfunction of bladder, unspecified; K21.9 Gastro-esophageal reflux disease without esophagitis; Z83.3 Family history of diabetes mellitus; N41.1 Chronic prostatitis; I10 Essential (primary) hypertension; Z79.82 Long term (current) use of aspirin; Z79.899 Other long term (current) drug therapy; Z90.49 Acquired absence of other specified parts of digestive tract; Y73.8 Miscellaneous gastroenterology and urology devices associated with adverse incidents, not elsewhere classified

== ENCOUNTER → 2017-01-28 | Day surgery (SDC) | payer OTHER ==
[2016-11-23 10:22] VITALS: BMI 29.0
[2016-12-31 15:32] VITALS: Ht 175.3 cm; Wt 90.9 kg
[~2017-01-28] VITALS: Ht 175.3 cm; Wt 90.9 kg
[~2017-01-28] MED LIST changes: +CRFL PO; +IOPAMIDOL INJ 61% 15 ML VIAL ONE; +LIDOCAINE HCL 1% MPF 5 ML VIAL ONE; +SODIUM CHLORIDE 0.9% INJ 10 ML VIAL ONE
--- NOTE | 2017-01-28 14:30 | History & Physical Bridge - SC ---
H&P Re-Evaluation Bridge Note: I have examined the patient, reviewed the History & Physical and in the interval since the performance of the History & Physical I have noted the following changes of clinical significance: No changes noted
--- NOTE | 2017-01-28 14:56 | Discharge Instructions ---
Discharge Instructions Date of Service Jan 28, 2017. Visit Reason for Visit: Lumbar Radiculopathy Discharge Discharge Diagnosis / Problem: right leg pain Discharge Goals Goal(s): Decrease discomfort, Improve function Medications Stopped Medications Name(s): Aspirin 81mg daily, last dose 01/22/17 Activity Recommendations Activity Limitations: resume your previous activity Anesthesia . Post Anesthesia Instructions: If you have had General Anesthesia or IV Sedation: * Do not drive today. * Resume driving when surgeon permits. * Do not make important decisions or sign legal documents today. * Call surgeon for: 1. Temperature elevations greater than 101 degrees F. 2. Uncontrollable pain. 3. Excessive bleeding. 4. Persistent nausea and vomiting. 5. Medication intolerance (nausea, vomiting or rash). * For nausea and vomiting use only clear liquids such as: tea, soda, bouillon until nausea subsides, then gradually increase diet as tolerated. * If you have any concerns or questions, call your surgeon's office. If physician is unavailable and it is an emergency, call 911 or go to the nearest emergency room. . Diet Recommendations Recommended Home Diet: resume previous diet Procedures Procedures Performed: Lumbar Epidural Steroid Injection Pending Studies Studies pending at discharge: no Medical Emergencies . Who to Call and When: Medical Emergencies: If at any time you feel your situation is an emergency, please call 911 immediately. . Non-Emergent Contact Non-Emergency issues call your: Specialist . . "Provider Documentation" section prepared by Ethan Muñiz. .
[2017-01-28 15:10] VITALS: BP 145/92; PULSE 68; TEMP 36.4; O2SAT 97
--- NOTE | 2017-01-28 15:17 | OPERATIVE REPORT ---
DATE OF OPERATION: 01/28/2017 PREOPERATIVE DIAGNOSIS: L4-L5 foraminal stenosis with a right L5 radiculopathy. POSTOPERATIVE DIAGNOSIS: Same. PROCEDURE: Right paramedian L4-L5 interlaminar epidural steroid injection under fluoroscopic guidance. INDICATIONS: The patient is a 51-year-old white male that has had an exacerbation of his back pain. Because of ongoing medical issues, he has been unable to get an epidural scheduled until now. He has significant pain reports of 8/10, radiating down the right leg at times. He has responded favorably to epidural injections in the past. PHYSICAL EXAMINATION: Pleasant male seated comfortably. He has a positive seated straight leg raise of his right lower extremity. No focal weakness. Decreased sensation subjectively in the right L4 dermatomal distribution. CONSENT: Verbal and written consent was obtained from the patient. Risks and benefits were reviewed. Risks include but are not limited to epidural abscess, epidural hematoma, allergic reaction, dural puncture. The patient wishes to proceed. DESCRIPTION OF PROCEDURE: The patient was taken back to the special procedures room of the [facility] where he was maintained in a prone position. Backside was cleansed with Betadine x3 and a dry sterile dressing was applied. Fluoroscope was used to identify the L4-L5 interlaminar space and overlying skin was anesthetized with 4 mL of lidocaine 1% with a 25 gauge 1.5-inch needle. A 22-gauge 3-1/2 inch Tuohy needle was then directed down towards the intralaminar space. It was advanced under lateral fluoroscopic guidance. Loss of resistance was noted at a depth of 6 cm. Isovue-300 contrast 1 mL was injected in which demonstrated a really nice epidural uptake pattern in this area with good spread. He then underwent injection after negative aspiration of 40 mg of Depo-Medrol and 4 mL of preservative free sodium chloride. Injection was well tolerated. DISPOSITION: 1. The patient is taken out into the discharge recovery area where he will be discharged home once discharge criteria have been met. 2. Follow up in the [facility] office in 2-4 weeks. I attest to the content of the Intraoperative Record and any orders documented therein. Any exception s are noted below.
== END | disposition home or self-care (01) ==
LOC: X.SURG 13:49
PROVIDERS: ATTEND Physical Medicine & Rehabilitation
DX: M48.061 Spinal stenosis, lumbar region without neurogenic claudication (principal)

== ENCOUNTER 2017-06-02 16:00 | Emergency (ER) | payer OTHER ==
[~2017-06-02] VITALS: Ht 175.3 cm; Wt 90.7 kg
[~2017-06-02 16:00] MED LIST changes: +GABA-1220 PO; -GABA1CAP5 PO; -IOPAMIDOL INJ 61% 15 ML VIAL ONE; -LIDOCAINE HCL 1% MPF 5 ML VIAL ONE; -SODIUM CHLORIDE 0.9% INJ 10 ML VIAL ONE
[2017-06-02 16:08] VITALS: TEMP 36.7; O2SAT 94; Ht 175.3 cm; Wt 90.7 kg
[2017-06-02] MEDS ORDERED: ONDANSETRON INJ 2 MG/ML 2 ML VIAL IV STA (16:10)
[2017-06-02] MEDS ORDERED: ACETAMINOPHEN 500 MG TAB PO STA (16:10)
[2017-06-02] MEDS ORDERED: SODIUM CHLORIDE 0.9% 1000ML 500 ML IV STA (16:10)
--- NOTE | 2017-06-02 16:15 | EMERGENCY ROOM VISIT NOTE ---
History Report prepared by Benedicto: Fredi De Los Santos Under the Supervision of: Dr. Randal Saldana M.D. First contact with patient: 16:03 Stated Complaint: SYNCOPE History of Present Illness The patient is a 51 year old male with a history of prostatitis who presents to the Emergency Room via EMS with complaints of a syncopal episode that occurred earlier this afternoon. He states that he took off work yesterday because he was feeling sick with generalized body aches, lethargy, a headache on the top of his head, and a bit of diarrhea. The patient adds that he self-catheterizes himself, and it was sore yesterday when he inserted the catheter, and his urine looked a little cloudy with a bit of an odor. He says that he is not currently being treated for this with an antibiotic, but he thinks he has an infection. The patient says that he came to work today feeling sick with a headache that moved down more towards the base of his skull, and he was still very lethargic. He says that his headache is currently a 7 out of 10 in severity, and he has not taken anything for it today. The patient states that he started getting dizzy and nauseous while sitting at his desk talking to his daughter, and then passed out for about 5 minutes. He says that he woke up still at his desk. The patient was given a Zofran injection by EMS which helped a bit. The patient denies any vomiting or sweats. He notes no known history of seizures. The patient states that the last time he passed out was years ago. Source of History: patient, nursing staff Onset: Earlier this afternoon Position: other (global) Symptom Intensity: out 5 minutes Quality: other (syncope) Timing: other (episode) Associated Symptoms: + headache, + nausea, + diarrhea, + urinary symptoms, + fatigue, No vomiting Note: Associated symptoms: Generalized body aches. Dizzy before episode. Review of Systems See HPI for pertinent positives & negatives. A total of 10 systems reviewed and were otherwise negative. Past Medical & Surgical Medical Problems: (1) Chronic back pain (2) Chronic prostatitis (3) Disc displacement, lumbar (4) Essential hypertension (5) History of herpes zoster (6) Neurogenic bladder Surgical Problems: (1) H/O vasectomy (2) History of inguinal hernia repair, bilateral (3) Status post cholecystectomy Family History Diabetes mellitus FH: heart disease FHx: cancer Stroke Social History Smoking Status: Never Smoker Alcohol Use: occasionally Drug Use: none Marital Status: Housing Status: lives with family Occupation Status: employed Current/Historical Medications Scheduled Amoxicillin & Pot Clavulanate (Augmentin 875-125 mg), 875 MG PO BID Aspirin (Aspirin Ec), 81 MG PO QAM Cranberry (Vaccinium Macrocarp (Cranberry), 1,000 MG PO BID Doxazosin Mesylate (Doxazosin Mesylate), 8 MG PO HS Gabapentin (Gabapentin), 400 MG PO TID Ginkgo Biloba (Ginkoba), 40 MG PO QAM Glucosamine-Chondroitin (Glucosamine/Chondroitin), 1 TAB PO DAILY Misc Natural Products (Saw [place]), 1 CAP PO QAM Omeprazole (Prilosec), 20 MG PO QAM Jad's Wort ([place] Perf ([place] Wort), 1,000 MG PO BID Scheduled PRN Cetirizine Hcl (Zyrtec Allergy), 10 MG PO DAILY PRN for Allergy Symptoms Dicyclomine Hcl (Dicyclomine Hcl), 10 MG PO BID PRN for Abdominal Pain Epinephrine (Epipen), 0.3 MG IM UD PRN for Allergic Reaction Fluticasone Propionate (Fluticasone Propionate), 2 SPRAYS JUSTIN DAILY PRN for Allergy Symptoms Meloxicam (Mobic), 7.5 MG PO DAILY PRN for Pain Allergies Coded Allergies: BEE STING (Verified Allergy, Severe, "PASSED OUT", 01/28/17) NO KNOWN DRUG ALLERGIES (Verified Allergy, Unknown, ., 01/28/17) Physical Exam Vital Signs Date Time Temp Pulse Resp B/P (MAP) Pulse Ox O2 Delivery O2 Flow Rate FiO2 06/02/17 19:00 93 18 151/113 98 06/02/17 18:18 72 16 160/99 94 Room Air 06/02/17 16:08 94 Room Air 06/02/17 16:08 36.7 95 16 156/109 94 Room Air 06/02/17 16:07 95 06/02/17 15:36 79 Physical Exam GENERAL: Patient is in no acute distress. HEENT: No acute trauma, normocephalic atraumatic, mucous membranes moist, no nasal congestion, no scleral icterus. NECK: No stridor, no adenopathy, no meningismus, trachea is midline. LUNGS: Clear to auscultation bilaterally, no wheeze, no rhonchi, breath sounds equal. HEART: Without murmurs gallops or rubs, regular rate and rhythm. ABDOMEN: Soft, nontender, bowel sounds positive, no hernias, no peritonitis. EXTREMITIES: No cyanosis or edema, full range of motion of all the joints without pain or difficulty, no signs for acute trauma. NEUROLOGIC: Oriented x 3, no acute motor or sensory deficits, no focal weakness. SKIN: No rash, no jaundice, no diaphoresis. Medical Decision & Procedures ER Provider Diagnostic Interpretation: Radiology results as stated below per my review and radiologist interpretation: CT HEAD WITHOUT CONTRAST (CT) CLINICAL HISTORY: Change in mental status. Syncope. Weakness. Possible stroke. COMPARISON STUDY: 06/08/2012 TECHNIQUE: Axial CT of the brain is performed from the vertex to the skull base. IV contrast was not administered for this examination. A dose lowering technique was utilized adhering to the principles of ALARA. CT DOSE: 537.48 mGy.cm FINDINGS: No intra or extra-axial mass lesions are visualized. There is no CT evidence of acute cortical infarction. There is no evidence of midline shift. There is no acute hemorrhage. No calvarial fractures are visualized. There is no evidence of pathologic ventricular dilatation. There is mucosal fluid/thickening within the sphenoid and ethmoid sinuses. IMPRESSION: 1. Inflammatory changes within the sphenoid and ethmoid sinuses 2. Otherwise no acute intracranial findings Electronically signed by: Tomer Lafleur M.D. 06/02/2017 4:50 PM Dictated Date/Time: 06/02/2017 4:48 PM CHEST ONE VIEW PORTABLE CLINICAL HISTORY: 51 years-old Male presenting with EVALUATE ALTERED MENTAL STATUS/WEAKNESS. TECHNIQUE: Portable upright AP view of the chest was obtained. COMPARISON: 12/12/2016. FINDINGS: Cardiomediastinal silhouette normal. Lungs and pleural spaces clear. Osseous structures normal. Upper abdomen normal. IMPRESSION: 1. No acute cardiopulmonary disease. Electronically signed by: Rogerio Sutton M.D. 06/02/2017 5:05 PM Dictated Date/Time: 06/02/2017 5:04 PM Laboratory Results 06/02/17 16:01 Red Blood Count 4.76, Mean Corpuscular Volume 87.8, Mean Corpuscular Hemoglobin 30.9, Mean Corpuscular Hemoglobin Concent 35.2, Mean Platelet Volume 9.9, Neutrophils (%) (Auto) 55.4, Lymphocytes (%) (Auto) 31.8, Monocytes (%) (Auto) 8.5, Eosinophils (%) (Auto) 3.1, Basophils (%) (Auto) 0.9, Neutrophils # (Auto) 3.19, Lymphocytes # (Auto) 1.83, Monocytes # (Auto) 0.49, Eosinophils # (Auto) 0.18, Basophils # (Auto) 0.05 06/02/17 16:01 Test 06/02/17 16:01 06/02/17 16:13 06/02/17 16:34 06/02/17 16:51 White Blood Count 5.76 K/uL (4.8-10.8) Red Blood Count 4.76 M/uL (4.7-6.1) Hemoglobin 14.7 g/dL (14.0-18.0) Hematocrit 41.8 % (42-52) Mean Corpuscular Volume 87.8 fL (80-100) Mean Corpuscular Hemoglobin 30.9 pg (25-34) Mean Corpuscular Hemoglobin Concent 35.2 g/dl (32-36) Platelet Count 255 K/uL (130-400) Mean Platelet Volume 9.9 fL (7.4-10.4) Neutrophils (%) (Auto) 55.4 % Lymphocytes (%) (Auto) 31.8 % Monocytes (%) (Auto) 8.5 % Eosinophils (%) (Auto) 3.1 % Basophils (%) (Auto) 0.9 % Neutrophils # (Auto) 3.19 K/uL (1.4-6.5) Lymphocytes # (Auto) 1.83 K/uL (1.2-3.4) Monocytes # (Auto) 0.49 K/uL (0.11-0.59) Eosinophils # (Auto) 0.18 K/uL (0-0.5) Basophils # (Auto) 0.05 K/uL (0-0.2) RDW Standard Deviation 41.3 fL (36.4-46.3) RDW Coefficient of Variation 12.9 % (11.5-14.5) Immature Granulocyte % (Auto) 0.3 % Immature Granulocyte # (Auto) 0.02 K/uL (0.00-0.02) Anion Gap 5.0 mmol/L (3-11) Est Creatinine Clear Calc Drug Dose 113.1 ml/min Estimated GFR () 116.4 Estimated GFR (Non- 100.4 BUN/Creatinine Ratio 11.0 (10-20) Calcium Level 8.9 mg/dl (8.5-10.1) Magnesium Level 2.3 mg/dl (1.8-2.4) Total Bilirubin 0.5 mg/dl (0.2-1) Aspartate Amino Transf (AST/SGOT) 19 U/L (15-37) Alanine Aminotransferase (ALT/SGPT) 35 U/L (12-78) Alkaline Phosphatase 98 U/L (45-117) Total Protein 7.7 gm/dl (6.4-8.2) Albumin 3.9 gm/dl (3.4-5.0) Globulin 3.8 gm/dl (2.5-4.0) Albumin/Globulin Ratio 1.0 (0.9-2) Bedside Troponin I < 0.030 ng/ml (0-0.045) Lactic Acid Level 0.7 mmol/L (0.4-2.0) Urine Color YELLOW Urine Appearance CLEAR (CLEAR) Urine pH 5.5 (4.5-7.5) Urine Specific [place] 1.010 (1.000-1.030) Urine Protein NEG (NEG) Urine Glucose (UA) NEG (NEG) Urine Ketones NEG (NEG) Urine Occult Blood NEG (NEG) Urine Nitrite NEG (NEG) Urine Bilirubin NEG (NEG) Urine Urobilinogen NEG (NEG) Urine Leukocyte Esterase NEG (NEG) Repeat troponin was 0.00. Laboratory results reviewed by me. Medications Administered Medications (Trade) Dose Ordered Sig/Fredis Route Start Time Stop Time Status Last Admin Dose Admin Sodium Chloride 500 ml @ 999 mls/hr Q31M STAT IV 06/02/17 16:10 06/02/17 16:40 DC 06/02/17 16:15 999 MLS/HR Ondansetron HCl (Zofran Inj) 4 mg NOW STAT IV 06/02/17 16:10 06/02/17 16:13 DC 06/02/17 16:35 4 MG Acetaminophen (Tylenol Tab) 1,000 mg NOW STAT PO 06/02/17 16:10 06/02/17 16:13 DC 06/02/17 16:35 1,000 MG Ceftriaxone Sodium (Rocephin Inj) 1 gm NOW STAT IV 06/02/17 16:55 06/02/17 16:56 DC 06/02/17 17:02 1 GM Sodium Chloride 500 ml @ 999 mls/hr Q31M STAT IV 06/02/17 17:52 06/02/17 18:22 DC 06/02/17 17:52 999 MLS/HR ECG Per My Interpretation Indication: syncope Rate (beats per minute): 101 Rhythm: sinus tachycardia Findings: other (LVH, no ST elevation, no PVCs) ED Course 1603: The patient was evaluated in room B11B. A complete history and physical exam was performed. 1610: Tylenol Tab 1000 mg PO, Zofran Inj 4 mg IV, NSS 500 ml @ 999 mls/hr IV. 1655: Rocephin Inj 1 gm IV. 1722: NSS 500 ml @ 999 mls/hr IV. 1750: Reevaluated the patient and he is resting comfortably. Discussed results and discharge instructions: he verbalized understanding and agreement. The patient is ready for discharge. Medical Decision Differential diagnosis includes but is not limited to vasovagal syncope, dehydration, electrolyte imbalance, sepsis, UTI, anemia, dysrhythmia, stroke or intracranial bleeding. There is no leukocytosis or concerning anemia. No significant electrolyte abnormality, kidney failure or hepatitis. EKG shows a sinus tachycardia with LVH, no acute ischemia. Cardiac enzyme testing 2 does not suggest acute cardiac injury. Chest film does not show pneumonia or CHF. Brain CT shows no acute bleed or mass-effect. The patient did have a sinusitis though in the ethmoids and sphenoid sinuses. On my exam, there were no focal neurologic deficits to suggest stroke. Urinalysis did not show infection. Lactic acid level was not elevated making sepsis less likely. The patient received IV saline, he was given IV ceftriaxone. He received IV Zofran. He received oral Tylenol for a headache. The patient presents with a syncopal spell. He has not felt well for the last few days. He does have sinusitis by workup. He is stable for discharge I believe. He will be prescribed Augmentin. Patient was encouraged to rest and to stay hydrated. I did tell him to see his family doctor because of his higher blood pressure. The blood pressure elevation may be situational but I do think follow-up with the doctors office is warranted. The patient was told to return for any worsening symptoms. Medication Reconcilliation Current Medication List: was personally reviewed by me Blood Pressure Screening Patient's blood pressure: Elevated blood pressure Blood pressure disposition: Referred to PCP Impression Primary Impression: Syncope Additional Impressions: Dehydration Sinusitis Essential hypertension Scribe Attestation The scribe's documentation has been prepared under my direction and personally reviewed by me in its entirety. I confirm that the note above accurately reflects all work, treatment, procedures, and medical decision making performed by me. Departure Information Dispostion Home / Self-Care Prescriptions Amoxicillin & Pot Clavulanate (Augmentin 875-125 mg) 1 Tab Tab 875 MG PO BID for 10 Days, #20 TAB Prov: Randal Saldana M.D. 06/02/17 Referrals Ancelmo Roche, D.O. (PCP) Additional Instructions fluids rest augmentin 2x per day for 10 days return if worsening see [facility] this week for a recheck lab testing urine testing today was all ok Problem Qualifiers Primary Impression: Syncope Syncope type: unspecified Qualified Codes: R55 - Syncope and collapse Additional Impressions: Sinusitis Sinusitis location: unspecified location Chronicity: unspecified Qualified Codes: J32.9 - Chronic sinusitis, unspecified
[2017-06-02 16:34] LABS: BASO % 0.9 %; BASO ABS # 0.05 K/uL (0-0.2); EOS % 3.1 %; EOS ABS # 0.18 K/uL (0-0.5); HEMATOCRIT 41.8 % (42-52); HEMOGLOBIN 14.7 g/dL (14.0-18.0); IG# 0.02 K/uL (0.00-0.02); LYMPH % 31.8 %; LYMPH ABS # 1.83 K/uL (1.2-3.4); MEAN CELL VOLUME 87.8 fL (80-100); MEAN CORPUSCULAR HEMOGLOBIN 30.9 pg (25-34); MEAN CORPUSCULAR HGB CONC 35.2 g/dl (32-36); MEAN PLATELET VOLUME 9.9 fL (7.4-10.4); MONO % 8.5 %; MONO ABS # 0.49 K/uL (0.11-0.59); NEUT % 55.4 %; NEUT ABS # 3.19 K/uL (1.4-6.5); PLATELET COUNT 255 K/uL (130-400); RED CELL DISTRIBUTION WIDTH CV 12.9 % (11.5-14.5); RED CELL DISTRIBUTION WIDTH SD 41.3 fL (36.4-46.3); WHITE BLOOD COUNT 5.76 K/uL (4.8-10.8)
[2017-06-02 16:51] LABS: ALBUMIN 3.9 gm/dl (3.4-5.0); CALCIUM 8.9 mg/dl (8.5-10.1); CREATININE 0.86 mg/dl (0.60-1.40); POTASSIUM 3.4 mmol/L (3.5-5.1)
--- NOTE | 2017-06-02 16:51 | DIAGNOSTIC IMAGING REPORT ---
CT HEAD WITHOUT CONTRAST (CT) CLINICAL HISTORY: Change in mental status. Syncope. Weakness. Possible stroke. COMPARISON STUDY: 06/08/2012 TECHNIQUE: Axial CT of the brain is performed from the vertex to the skull base. IV contrast was not administered for this examination. A dose lowering technique was utilized adhering to the principles of ALARA. CT DOSE: 537.48 mGy.cm FINDINGS: No intra or extra-axial mass lesions are visualized. There is no CT evidence of acute cortical infarction. There is no evidence of midline shift. There is no acute hemorrhage. No calvarial fractures are visualized. There is no evidence of pathologic ventricular dilatation. There is mucosal fluid/thickening within the sphenoid and ethmoid sinuses. IMPRESSION: 1. Inflammatory changes within the sphenoid and ethmoid sinuses 2. Otherwise no acute intracranial findings Electronically signed by: Tomer Lafleur M.D. 06/02/2017 4:50 PM Dictated Date/Time: 06/02/2017 4:48 PM
[2017-06-02 16:54] LABS: TOTAL PROTEIN 7.7 gm/dl (6.4-8.2)
[2017-06-02] MEDS ORDERED: CEFTRIAXONE SOD INJ 1 GM ADDVIAL IV STA (16:55)
--- NOTE | 2017-06-02 17:06 | DIAGNOSTIC IMAGING REPORT ---
CHEST ONE VIEW PORTABLE CLINICAL HISTORY: 51 years-old Male presenting with EVALUATE ALTERED MENTAL STATUS/WEAKNESS. TECHNIQUE: Portable upright AP view of the chest was obtained. COMPARISON: 12/12/2016. FINDINGS: Cardiomediastinal silhouette normal. Lungs and pleural spaces clear. Osseous structures normal. Upper abdomen normal. IMPRESSION: 1. No acute cardiopulmonary disease. Electronically signed by: Rogerio Sutton M.D. 06/02/2017 5:05 PM Dictated Date/Time: 06/02/2017 5:04 PM
[2017-06-02] MEDS ORDERED: OMEP20CA9 PO (17:26)
[2017-06-02] MEDS ORDERED: NRN400 PO (17:26)
[2017-06-02] MEDS ORDERED: DICY10CA12 PO (17:26)
[2017-06-02] MEDS ORDERED: FLNIN/ NAE (17:26)
[2017-06-02] MEDS ORDERED: ASPI81TA28 PO (17:28)
[2017-06-02] MEDS ORDERED: GLUC500T23 PO (17:29)
[2017-06-02] MEDS ORDERED: SODIUM CHLORIDE 0.9% 500ML 500 ML IV STA (17:52)
[2017-06-02] MEDS ORDERED: AMOX875T PO (18:55)
[2017-06-02 19:00] VITALS: BP 151/113; PULSE 93; O2SAT 98
== END 2017-06-02 19:05 | disposition home or self-care (01) ==
LOC: EDBD 16:00 → C.EDB 16:02
DX: R55 Syncope and collapse (principal); E86.0 Dehydration; J32.9 Chronic sinusitis, unspecified; I10 Essential (primary) hypertension; Z79.82 Long term (current) use of aspirin; Z91.030 Bee allergy status

== ENCOUNTER 2018-11-14 15:45 | Inpatient (IN) ==
[2018-11-14] MEDS ORDERED: ONDANSETRON INJ 2 MG/ML 2 ML VIAL IV STA (17:24)
[2018-11-14] MEDS ORDERED: SODIUM CHLORIDE 0.9% 1000ML 2,000 ML IV ONE (17:24)
[2018-11-14] MEDS ORDERED: MoRPHine SULFATE 10 MG/ML CARP/VIAL IV STA ×2 (17:24→19:53)
[2018-11-14 18:19] LABS: Basophils # (auto) 0.05 K/uL (0-0.2); Basophils % (auto) 0.7 %; Eosinophils # (auto) 0.18 K/uL (0-0.5); Eosinophils % (auto) 2.4 %; Hematocrit (blood only) 41.7 % (42-52); Hemoglobin 15.1 g/dL (14.0-18.0); Immature Granulocytes # (auto) 0.01 K/uL (0.00-0.02); Immature Granulocytes % (auto) 0.1 %; Lymphocytes # (auto) 1.69 K/uL (1.2-3.4); Lymphocytes % (auto) 22.7 %; Mean Corpuscular Hgb Conc 36.2 g/dL (32-36); Mean Corpuscular Volume 88.3 fL (80-100); Mean Platelet Volume 9.6 fL (7.4-10.4); Monocytes # (auto) 0.76 K/uL (0.11-0.59); Monocytes % (auto) 10.2 %; Neutrophils # (auto) 4.76 K/uL (1.4-6.5); Neutrophils % (auto) 63.9 %; Platelet Count 250 K/uL (130-400); RDW Coefficient of Variation 12.6 % (11.5-14.5); RDW Standard Deviation 40.3 fL (36.4-46.3); Red Blood Count 4.72 M/uL (4.7-6.1); White Blood Count 7.45 K/uL (4.8-10.8)
[2018-11-14 18:20] LABS: Appearance Urine Clear (Clear); Bilirubin Urine Negative (Negative); Blood Urine Negative (Negative); Color Urine Yellow; Glucose Urine UA Negative (Negative); Ketones Urine Negative (Negative); Leukocyte Esterase Urine Negative (Negative); Nitrite Urine Negative (Negative); Protein Urine Negative (Negative); Specific Gravity Urine 1.011 (1.000-1.030); Urobilinogen Urine Negative (Negative)
[2018-11-14 18:55] LABS: BUN Creatinine Ratio 9.4 (10-20); Calcium 9.1 mg/dl (8.5-10.1); Creatinine Clr Calc Pharmacy 106.1 ml/min; Est GFR (African American) 113.7; Est GFR (Non-African American) 98.1; Potassium 3.7 mmol/L (3.5-5.1)
[2018-11-14 18:58] LABS: Albumin Globulin Ratio 1.1 (0.9-2); Bilirubin,Total 0.8 mg/dl (0.2-1); Globulin 3.8 gm/dl (2.5-4.0); Total Protein 7.8 gm/dl (6.4-8.2)
[2018-11-14] MEDS ORDERED: IOVERSOL 100ml IV PRN (19:35)
--- NOTE | 2018-11-14 19:45 | CT Scan Report ---
CT abd pelvis IV con only CLINICAL HISTORY: 53 years-old Male presenting with generalized abdominal pain, history of pancreatit is, nephrolithiasis, and diverticulitis. TECHNIQUE: Multidetector CT of the abdomen and pelvis was performed after the administration of intra venous contrast. IV contrast: 94 mL of Optiray 320. One or more dose lowering techniques were used co nsistent with the principles of ALARA (as low as reasonably achievable), including automatic exposure control, mA or kV adjustment to individual patient size, and/or use of iterative reconstruction. COMPARISON: 07/24/2018. CT DOSE (mGy.cm): The estimated cumulative dose is 875.31 mGycm. FINDINGS: Vp Outcomes topogram: Cholecystectomy and vasectomy lips. Lung bases: Normal heart size. Coronary artery calcification. No pericardial or pleural effusion. Min imal dependent changes likely atelectasis. Liver: Normal morphology. Density suggestive of hepatic steatosis. Vague hypodensity along the fissur e for the falciform ligament likely perfusional variation or focal fat. Patent hepatic vasculature. Biliary: Mild biliary ductal prominence likely a reservoir effect in the post cholecystectomy state. Gallbladder surgically absent. Pancreas: Mild parenchymal atrophy. Trace peripancreatic fat stranding along the pancreatic neck. Spleen: Normal. Adrenal glands: Normal. Kidneys and ureters: Resolution of prior left hydroureteronephrosis with passage of the prior distal left ureteral calculus. Renal vascular calcification noted. No new renal calculus. Normal renal paren chyma. Resolution of prior perinephric fat stranding. Ureters are now nondistended. Bladder: Circumferential bladder wall thickening. Pelvic organs: Prostate enlargement likely secondary to benign prostatic hyperplasia. Bowel: Diverticulosis of the proximal to mid sigmoid colon and descending colon without wall thickeni ng or pericolonic inflammatory change. No bowel obstruction. The appendix is normal. Peritoneal cavity: No free fluid or intraperitoneal gas. Lymph nodes: No enlarged lymph nodes in the abdomen or pelvis. Vasculature: Atherosclerosis of the normal caliber abdominal aorta. IVC patent. Abdominal wall: Small fat-containing left inguinal hernia. Vasectomy clips noted. Musculoskeletal: Degenerative changes of the spine. IMPRESSION: 1. Trace peripancreatic fat stranding along the pancreatic neck could suggest early or mild intersti tial edematous pancreatitis. Alternatively, this could the seen in the setting of peripancreatic scar ring from prior pancreatitis. Correlate with lipase. 2. Resolution of prior left hydroureteronephrosis with passage of the prior distal left ureteral tsering culus. 3. Diverticulosis coli without evidence of diverticulitis. Electronically signed by: Rogerio Sutton M.D. 11/14/2018 7:43 PM
--- NOTE | 2018-11-14 20:12 | Emergency Department Note ---
Entered by Gabby Lopez acting as a scribe for History of Present Illness General Chief complaint: Abdominal Pain Stated complaint: STOMACH PAIN, PANCREATITIS Source: patient History of Present Illness Onset (ago): day(s) 2 Location: abdomen Severity: similar to prior episodes (pancreatitis) Pain Consistency: + other (worsening) Maximum Pain Intensity: 6 Quality: + other (bloated) Associated symptoms: + denies other symptoms (rhinorrhea, pain radiating to back), + nausea/vomiting and + other (not moving bowels in 2 days); no chest pain and no cough The patient is a 53 year old male who presents to the Emergency Room with complaints of worsening abdominal pain starting 2 days ago. The patient states that he has a history of pancreatitis and has had it 3 times. He states that he does not drink alcohol and with his first bout of pancreatitis, he had a cholecystectomy. He states that 2 days ago he started to feel like he was having an episode. He reports that it is in his upper abdomen and radiates down into his lower abdomen. He reports that his abdomen feels bloated. The patient complains of nausea and vomiting. He notes that his last bowel movement was 2 days ago. The patient denies cough, rhinorrhea, chest pain, and the pain radiating to his back. Home Medications Home Medications Medication Instructions Recorded Confirmed Type amlodipine 5 mg PO QAM 11/05/17 11/14/18 History aspirin 81 mg PO QAM 11/05/17 11/14/18 History cetirizine [Zyrtec] 10 mg PO QAM 11/05/17 11/14/18 History cranberry 500 mg PO BID 11/05/17 11/14/18 History doxazosin 8 mg PO HS 11/05/17 11/14/18 History fluticasone propionate [Flonase 2 spray INTRANASAL DAILY PRN 11/05/17 11/14/18 History Allergy Relief] gabapentin 400 mg PO TID 11/05/17 11/14/18 History ginkgo biloba 40 mg PO QAM 11/05/17 11/14/18 History glucosamine-chondroitin 1 tab PO TIDM 11/05/17 11/14/18 History meloxicam 7.5 mg PO QAM 11/05/17 11/14/18 History omeprazole 20 mg PO QAM 11/05/17 11/14/18 History alum-mag hydroxide-simeth [Maalox 15 ml PO QID PRN 11/14/18 11/14/18 History Advanced] epinephrine [EpiPen 2-Steven] 0.3 mg IM Q3H PRN 11/14/18 11/14/18 History simethicone [Gas-X Extra Strength] 125 mg PO BID PRN 11/14/18 11/14/18 History Allergies Allergy/AdvReac Type Severity Reaction Status Date / Time bee venom protein (honey bee) Allergy Severe "PASSED Verified 11/14/18 17:35 OUT" Past Med/Surg History Medical History Cancer BCC - REMOVED - BACK Cardiac murmur Chronic back pain Chronic prostatitis Colon polyps Diverticular disease Family history of reaction to anesthesia PT BELIEVES MOTHER HAD ANESTHESIA REACTION - DOES NOT KNOW SPECIFICS. Hearing deficit History of lumbar puncture History of viral meningitis Hypertension Migraine Mitral valve prolapse Osteoarthritis Pancreatitis Post traumatic stress disorder Surgical History History of cholecystectomy History of colonoscopy History of herniorrhaphy History of vasectomy Family History Other Cancer Diabetes Gallbladder disease Heart disease Hypertension Social History Preferred Language: Estonian Communication Ability: Effective Automotive Service Consultant Required: No Beliefs That Will Affect Care: None marital status: Current Living Situation: Spouse current occupational status: employed Feels Safe at Home: Yes Smoking Status: Never smoker Second Hand Exposure: Yes ( SMOKES) ; Hx Alcohol Use: Yes Alcohol type: hard liquor Hx Substance Use: No Review of Systems See HPI for pertinent positives & negatives. and A total of 10 systems reviewed and were otherwise negative Physical Exam Vital Signs Vital Signs - 24 hr 11/14/18 15:51 11/14/18 18:24 Temperature 36.7 C Temperature Source Oral Sepsis Recent Fever Within 48 Hours No Sepsis New/Unexplained Change in Mental Status No Sepsis Action Taken by Nursing No Action Required Pulse Rate 101 H Pulse Rate [Finger] 93 H Respiratory Rate 18 12 Blood Pressure 123/83 Blood Pressure [Right Arm] 141/100 H Blood Pressure Mean 96 Blood Pressure Mean [Right Arm] 113 Pulse Oximetry 95 92 Oxygen Delivery Method Room Air GENERAL: sitting up in bed, moderate distress, holding epigastric region EYE EXAM: normal conjunctiva OROPHARYNX: no exudate, no erythema, lips, buccal mucosa, and tongue normal and mucous membranes are moist NECK: supple, no nuchal rigidity, no adenopathy, non-tender LUNGS: Clear to auscultation. Normal chest wall mechanics HEART: no murmurs, S1 normal and S2 normal ABDOMEN: abdomen soft, acutely tender to palpation in epigastric region, normo- active bowel sounds, no masses, no rebound or guarding. BACK: Back is symmetrical on inspection and there is no deformity, no midline tenderness, no CVA tenderness. SKIN: no rashes and no bruising UPPER EXTREMITIES: upper extremities are grossly normal. LOWER EXTREMITIES: No pitting edema. NEURO EXAM: Normal sensorium, cranial nerves II-XII grossly intact, normal speech, no gross weakness of arms, no gross weakness of legs. Course ED COURSE: Vital signs were reviewed and showed hypertensive and tachycardic. The patients medical record was reviewed The above diagnostic studies were performed and reviewed. ED treatments and interventions as stated above. 1724: The patient was evaluated in room C11B. A complete history and physical examination was performed. 1854: I reevaluated the patient and he is feeling more comfortable. 174: I reevaluated the patient and updated him thus far. 8: Upon reevaluation, the patient is resting comfortably. I discussed my findings with the patient and he understands and agrees with the treatment plan. Based on the patients age, coexisting illnesses, exam and lab findings the decision to treat as an inpatient was made. The patient remained stable while under my care. The patient will be evaluated for further management. 1950: I discussed the patient's case with Dr. Rodrick Osborne. He will evaluate the patient for further management. Consultations Consultation #1: I discussed the patient's case with Dr. Rodrick Osborne. He will evaluate the patient for further management. Time: 19:51 Administered Medications Ioversol (Optiray 320 100ml) 94 ml IV ONCE PRN PRN Reason: Interaction Checking Stop: 11/18/18 19:34 Last Admin: 11/14/18 19:35 Dose: 94 ml Documented by: [id number] Discontinued Medications Sodium Chloride (Nss 1000ml) 2,000 mls @ 999 mls/hr IV .Q2H1M ONE Stop: 11/14/18 19:24 Last Admin: 11/14/18 18:22 Dose: 999 mls/hr Documented by: [id number] Morphine Sulfate (Morphine Sulfate) 6 mg IV NOW STA Stop: 11/14/18 17:25 Last Admin: 11/14/18 18:21 Dose: 6 mg Documented by: [id number] Ondansetron HCl (Zofran) 4 mg IV NOW STA Stop: 11/14/18 17:25 Last Admin: 11/14/18 18:21 Dose: 4 mg Documented by: [id number] Medical Decision Making Differential Diagnosis Differential diagnoses includes but is not limited to gastritis, peptic ulcer disease, GERD, gallbladder disease, pancreatitis, small bowel obstruction, acute coronary syndrome, pericarditis, ischemic bowel, irritable bowel disease, irritable bowel syndrome, appendicitis, diverticulitis, malignancy, hernia, urinary tract infection, torsion, perforation, trauma, infectious. Medical Records Attestation: I reviewed the patient's medical records. Home Medications Current Medication List: was personally reviewed by me Laboratory Data Attestation: I reviewed the patient's lab results. Result diagrams: 11/14/18 18:02 11/14/18 18:02 Lab Results 11/14/18 11/14/18 11/14/18 Range/Units 18:02 18:02 18:02 WBC 7.45 (4.8-10.8) K/uL RBC 4.72 (4.7-6.1) M/uL Hgb 15.1 (14.0-18.0) g/dL Hct 41.7 L (42-52) % MCV 88.3 (80-100) fL MCH 32.0 (25-34) pg MCHC 36.2 H (32-36) g/dL RDW Std Deviation 40.3 (36.4-46.3) fL RDW Coeff of Jeanine 12.6 (11.5-14.5) % Plt Count 250 (130-400) K/uL MPV 9.6 (7.4-10.4) fL Immature Gran % (Auto) 0.1 % Neut % (Auto) 63.9 % Lymph % (Auto) 22.7 % Bullock % (Auto) 10.2 % Eos % (Auto) 2.4 % Baso % (Auto) 0.7 % Immature Gran # (Auto) 0.01 (0.00-0.02) K/uL Neut # (Auto) 4.76 (1.4-6.5) K/uL Lymph # (Auto) 1.69 (1.2-3.4) K/uL Bullock # (Auto) 0.76 H (0.11-0.59) K/uL Eos # (Auto) 0.18 (0-0.5) K/uL Baso # (Auto) 0.05 (0-0.2) K/uL Sodium 140 (136-145) mmol/L Potassium 3.7 (3.5-5.1) mmol/L Chloride 106 (98-107) mmol/L Carbon Dioxide 26 (21-32) mmol/L Anion Gap 8.0 (3-11) BUN 8 (7-18) mg/dl Creatinine 0.88 (0.6-1.4) mg/dl Est Cr Clr Drug Dosing 106.1 ml/min Est GFR ( Amer) 113.7 Est GFR (Non-Af Amer) 98.1 BUN/Creatinine Ratio 9.4 L (10-20) Glucose 89 (70-99) mg/dl Calcium 9.1 (8.5-10.1) mg/dl Total Bilirubin 0.8 (0.2-1) mg/dl AST 11 L (15-37) U/L ALT 23 (12-78) U/L Alkaline Phosphatase 114 (45-117) U/L Total Protein 7.8 (6.4-8.2) gm/dl Albumin 4.0 (3.4-5.0) gm/dl Globulin 3.8 (2.5-4.0) gm/dl Albumin/Globulin Ratio 1.1 (0.9-2) Lipase 282 (73-393) U/L Urine Color Yellow Urine Appearance Clear (Clear) Urine pH 6.0 (4.5-7.5) Ur Specific [place] 1.011 (1.000-1.030) Urine Protein Negative (Negative) Urine Glucose (UA) Negative (Negative) Urine Ketones Negative (Negative) Urine Blood Negative (Negative) Urine Nitrite Negative (Negative) Urine Bilirubin Negative (Negative) Urine Urobilinogen Negative (Negative) Ur Leukocyte Esterase Negative (Negative) Imaging Data Radiologist's Impression: Radiology results as stated below per my review and the radiologist's interpretation: CT abd pelvis IV con only CLINICAL HISTORY: 53 years-old Male presenting with generalized abdominal pain, history of pancreatitis, nephrolithiasis, and diverticulitis. TECHNIQUE: Multidetector CT of the abdomen and pelvis was performed after the administration of intravenous contrast. IV contrast: 94 mL of Optiray 320. One or more dose lowering techniques were used consistent with the principles of ALARA (as low as reasonably achievable), including automatic exposure control, mA or kV adjustment to individual patient size, and/or use of iterative reconstruction. COMPARISON: 07/24/2018. CT DOSE (mGy.cm): The estimated cumulative dose is 875.31 mGycm. FINDINGS: Defensive Line Coach topogram: Cholecystectomy and vasectomy lips. Lung bases: Normal heart size. Coronary artery calcification. No pericardial or pleural effusion. Minimal dependent changes likely atelectasis. Liver: Normal morphology. Density suggestive of hepatic steatosis. Vague hypodensity along the fissure for the falciform ligament likely perfusional va riation or focal fat. Patent hepatic vasculature. Biliary: Mild biliary ductal prominence likely a reservoir effect in the post cholecystectomy state. Gallbladder surgically absent. Pancreas: Mild parenchymal atrophy. Trace peripancreatic fat stranding along the pancreatic neck. Spleen: Normal. Adrenal glands: Normal. Kidneys and ureters: Resolution of prior left hydroureteronephrosis with passage of the prior distal left ureteral calculus. Renal vascular calcification noted. No new renal calculus. Normal renal parenchyma. Resolution of prior perinephric fat stranding. Ureters are now nondistended. Bladder: Circumferential bladder wall thickening. Pelvic organs: Prostate enlargement likely secondary to benign prostatic hyperplasia. Bowel: Diverticulosis of the proximal to mid sigmoid colon and descending colon without wall thickening or pericolonic inflammatory change. No bowel o bstruction. The appendix is normal. Peritoneal cavity: No free fluid or intraperitoneal gas. Lymph nodes: No enlarged lymph nodes in the abdomen or pelvis. Vasculature: Atherosclerosis of the normal caliber abdominal aorta. IVC patent. Abdominal wall: Small fat-containing left inguinal hernia. Vasectomy clips noted. Musculoskeletal: Degenerative changes of the spine. IMPRESSION: 1. Trace peripancreatic fat stranding along the pancreatic neck could suggest early or mild interstitial edematous pancreatitis. Alternatively, this could the seen in the setting of peripancreatic scarring from prior pancreatitis. Correlate with lipase. 2. Resolution of prior left hydroureteronephrosis with passage of the prior distal left ureteral calculus. 3. Diverticulosis coli without evidence of diverticulitis. Electronically signed by: Rogerio Sutton M.D. 11/14/2018 7:43 PM Blood Pressure Blood Pressure Findings: Elevated blood pressure Blood Pressure Disposition: further management by hospitalist CARRI Narrative Patient is a 53-year-old male who presents the ER for epigastric abdominal pain/periumbilical pain. This started Wednesday night. Since then he has been unable to eat or drink. He denies any significant alcohol use. He admits to previous cholecystectomy. He notes that this pain feels like his previous bouts of pancreatitis. He does also have a history of diverticulitis. Last bowel movement was Wednesday night. He has been dry heaving. Patient also admits to previous hernia surgery x2. IV was established blood work was obtained and shows no significant leukocytosis or anemia. BMP along with LFTs bilirubin and lipase is unremarkable. UA was negative. Patient was given 2 dose of IV morphine. He was given IV fluids IV Zofran. He did feels sniffily improved. CT abdomen pelvis shows some stranding around the pancreatic head. Patient was updated bedside. Since he is not eating or drinking and is having significant amount of pain discussed with the hospitalist for observation secondary to pancreatitis. Impression & Plan Pancreatitis, Abdominal pain, Vomiting Discharge Plan Visit Data Chief Complaint: Abdominal Pain Stated Complaint: STOMACH PAIN, PANCREATITIS ED Provider: Andrez Hwang Discharge Problem: Pancreatitis, Abdominal pain, Vomiting Patient Disposition: Being Evaluated by Hospitalist Forms Stand Alone Forms: Call Back Authorization, [facility] Prescriptions Prescriptions: No Action simethicone [Gas-X Extra Strength] 125 mg Capsule 125 mg PO BID PRN (Reason: Gas) RF: 0 alum-mag hydroxide-simeth [Maalox Advanced] 200-200-20 mg/5 mL Suspension 15 ml PO QID PRN (Reason: Gas ) RF: 0 epinephrine [EpiPen 2-Steven] 0.3 mg/0.3 mL Auto-Injector 0.3 mg IM Q3H PRN (Reason: Anaphylaxis) RF: 0 cetirizine [Zyrtec] 10 mg Tablet 10 mg PO QAM RF: 0 gabapentin 400 mg Capsule 400 mg PO TID RF: 0 amlodipine 5 mg Tablet 5 mg PO QAM RF: 0 aspirin 81 mg Tablet,Delayed Release (Dr/Ec) 81 mg PO QAM RF: 0 meloxicam 7.5 mg Tablet 7.5 mg PO QAM RF: 0 ginkgo biloba 40 mg Tablet 40 mg PO QAM RF: 0 doxazosin 8 mg Tablet 8 mg PO HS RF: 0 fluticasone propionate [Flonase Allergy Relief] 50 mcg/actuation Gautier,Suspension 2 spray INTRANASAL DAILY PRN (Reason: Congestion) RF: 0 glucosamine-chondroitin 500-400 mg Tablet 1 tab PO TIDM RF: 0 cranberry 500 mg Capsule 500 mg PO BID RF: 0 omeprazole 20 mg Tablet,Delayed Release (Dr/Ec) 20 mg PO QAM RF: 0 Referrals Referrals: Ancelmo Roche DO [Primary Care Provider] - Discharge Problem: Pancreatitis Qualifiers: Chronicity: acute Pancreatitis type: unspecified pancreatitis type Acute pancreatitis complication: unspecified Qualified Code(s): K85.90 - Acute pancreatitis without necrosis or infection, unspecified Abdominal pain Qualifiers: Abdominal location: unspecified location Qualified Code(s): R10.9 - Unspecified abdominal pain Vomiting Qualifiers: Vomiting type: unspecified Vomiting Intractability: unspecified Nausea presence: unspecified Qualified Code(s): R11.10 - Vomiting, unspecified The scribe's documentation has been prepared under my direction and personally reviewed by me in its entirety. I confirm that the note above accurately re flects all work, treatment, procedures, and medical decision making performed by me.
[2018-11-14] MEDS ORDERED: ONDANSETRON INJ 2 MG/ML 2 ML VIAL IV PRN (20:51)
--- NOTE | 2018-11-14 20:58 | History & Physical Report ---
Date of Service November 14, 2018 Assessment & Plan (1) Pancreatitis: Abdominal pain secondary to Recurrent Pancreatitis -Trace peripancreatic fat stranding along the pancreatic neck could suggest early or mild interstitial edematous pancreatitis. Alternatively, this could the seen in the setting of peripancreatic scarring from prior pancreatitis -lipase is within normal limits however this is upper limits of normal as lipase is 282 -bowel rest, bowel regimen to help with making bowel movement -IV fluids with lactated ringer's at 150 cc/hr -trend lipase level -prn pain medications that are not NSAIDs -Gastroenterology consult requested for evaluation of pancreatitis Nausea -IV antiemetics -patient reports daily use of meloxicam fro 5 years -hold meloxicam -give pantoprazole oral BID for now with sucralfate -patient is not anemic and no report of blood in stools -avoid ginko biloba supplements -Gastroenterology consult requested that if pancreatitis is ruled out then there may be other reasons for abdominal pain Hypertension -continue home dose amlodipine 5 mg daily -continue home dose aspirin -continue doxazosin which has anti-hypertensive properties besides helping with urination Full Code Status DVT prophylaxis: SCDs, ambulation patient's family medical doctor is Dr. Ancelmo Roche patient has previously made appointment on 11/30/2018 8:30 AM Provider RANDOLPH [facility] Department Gastroenterology, [facility] Patient will be followed by my hospitalist colleague Dr. Leon starting on 11/15/2018 History of Present Illness This is a 53 year old male who as per review of outpatient chart review has history of recurrent versus chronic pancreatitis who presents to the hospital on 11/14/18 with abdominal pain that was going on for 2 days. Patient reports the pain which is around the epigastrum and umbilical area became worse today so he came to the emergency room. Patient also on review of systems with nausea. denies vomiting. denies fever. patient has been taking Meloxicam daily for 5 ye ars. denies blood in stool or in urine. denies dysuria recently. no upper chest pain. no shortness of breath. no dizziness. no lightheadedness. denies history of diabetes. denies smoking tobacco, denies alcohol use. Emergency room testing remarkable for "Trace peripancreatic fat stranding along the pancreatic neck could suggest early or mild interstitial edematous pancreatitis" family history: mother had history of cancer and diabetes mellitus allergies: other than bee stings, patient denies allergies to medications or foods Primary Care Provider: Ancelmo Roche DO Allergies Allergy/AdvReac Type Severity Reaction Status Date / Time bee venom protein (honey bee) Allergy Severe "PASSED Verified 11/14/18 17:35 OUT" Home Medications Home Medications Medication Instructions Recorded Confirmed Type amlodipine 5 mg PO QAM 11/05/17 11/14/18 History aspirin 81 mg PO QAM 11/05/17 11/14/18 History cetirizine [Zyrtec] 10 mg PO QAM 11/05/17 11/14/18 History cranberry 500 mg PO BID 11/05/17 11/14/18 History doxazosin 8 mg PO HS 11/05/17 11/14/18 History fluticasone propionate [Flonase 2 spray INTRANASAL DAILY PRN 11/05/17 11/14/18 History Allergy Relief] gabapentin 400 mg PO TID 11/05/17 11/14/18 History ginkgo biloba 40 mg PO QAM 11/05/17 11/14/18 History glucosamine-chondroitin 1 tab PO TIDM 11/05/17 11/14/18 History meloxicam 7.5 mg PO QAM 11/05/17 11/14/18 History omeprazole 20 mg PO QAM 11/05/17 11/14/18 History alum-mag hydroxide-simeth [Maalox 15 ml PO QID PRN 11/14/18 11/14/18 History Advanced] epinephrine [EpiPen 2-Steven] 0.3 mg IM Q3H PRN 11/14/18 11/14/18 History simethicone [Gas-X Extra Strength] 125 mg PO BID PRN 11/14/18 11/14/18 History Past Med/Surg History Medical History Cancer BCC - REMOVED - BACK Cardiac murmur Chronic back pain Chronic prostatitis Colon polyps Diverticular disease Family history of reaction to anesthesia PT BELIEVES MOTHER HAD ANESTHESIA REACTION - DOES NOT KNOW SPECIFICS. Hearing deficit History of lumbar puncture History of viral meningitis Hypertension Migraine Mitral valve prolapse Osteoarthritis Pancreatitis Post traumatic stress disorder Surgical History History of cholecystectomy History of colonoscopy History of herniorrhaphy History of vasectomy Family History Other Cancer Diabetes Gallbladder disease Heart disease Hypertension Social History Preferred Language: Mauritian Communication Ability: Effective Sex Worker Or Escort Required: No Beliefs That Will Affect Care: None marital status: Current Living Situation: Spouse current occupational status: employed Feels Safe at Home: Yes Smoking Status: Never smoker Second Hand Exposure: Yes ( SMOKES) ; Hx Alcohol Use: Yes Alcohol type: hard liquor Hx Substance Use: No Review of Systems Review of Systems: All systems reviewed & are unremarkable except as noted in HPI & below Physical Exam Constitutional: WD/WN, vitals as above Eyes: PERRL, conjunctivae normal, anicteric sclerae EOM intact bilaterally ENMT: external ear and nose normal, oropharynx normal Respiratory: normal respiratory effort, lungs clear to auscultation Cardiovascular: Rate/Rhythm: regular rate and regular rhythm Gastrointestinal (Abdomen): Inspection/Auscultation: normal bowel sounds Percussion/Palpation: + abdomen tender (central abdomen and epigastric tenderness to palpitation) and abdomen soft Neurologic: PERRL, EOMI, accommodation nl, no face palsy, no dysarthria CN's II-XI intact bilaterally Psychiatric: A+Ox3, euthymic affect Results & Data Vital Signs (Past 12 Hours) Vital Signs Temp Pulse Pulse Resp BP BP Pulse Ox 11/14/18 20:30 100 H 17 150/93 H 11/14/18 20:00 83 19 142/88 H 11/14/18 19:41 81 17 137/93 11/14/18 19:00 85 14 150/95 H 93 11/14/18 18:30 88 10 L 145/99 H 91 11/14/18 18:25 93 H 9 L 141/100 H 88 L 11/14/18 18:24 93 H 12 141/100 H 92 11/14/18 15:51 36.7 C 101 H 18 123/83 95 Code Status & VTE Plan VTE Prophylaxis Plan VTE Prophylaxis will be ordered: Yes
[2018-11-14] MEDS: LACTATED RINGER'S 1,000 ML IV SCH (21:00)
[2018-11-14] MEDS ORDERED: ACETAMINOPHEN 325 MG TAB PO PRN (21:11)
[2018-11-14] MEDS ORDERED: POLYETHYLENE (MIRALAX) 17 GM PACK PO PRN (21:11)
[2018-11-14] MEDS ORDERED: HYDROmorphone INJ 0.5 MG/0.5 ML SYR IV PRN (21:12)
[2018-11-14] MEDS ORDERED: OXYCODONE HCL IR 5 MG TAB (IMMEDIATE RELEASE) PO PRN (21:12)
[2018-11-14] MEDS ORDERED: SENNA 8.6 MG TAB PO SCH (22:00)
[2018-11-14] MEDS ORDERED: POLYETHYLENE (MIRALAX) 17 GM PACK PO SCH (22:00)
[2018-11-14] MEDS: DOXAZosin MESYLATE 4 MG TAB PO SCH (22:14)
[2018-11-14] MEDS: SUCRALFATE 1 GM/10 ML UDC PO SCH (22:14)
[2018-11-14] MEDS: GABAPENTIN 400 MG CAP PO SCH (22:14)
[2018-11-14] MEDS: PANTOprazole 40 MG TAB PO SCH (22:14)
[2018-11-15] MEDS: LACTATED RINGER'S 1,000 ML IV SCH ×4 (03:11→19:31)
[2018-11-15 05:40] LABS: Basophils # (auto) 0.05 K/uL (0-0.2); Basophils % (auto) 0.9 %; Eosinophils # (auto) 0.25 K/uL (0-0.5); Eosinophils % (auto) 4.5 %; Hematocrit (blood only) 36.4 % (42-52); Hemoglobin 12.6 g/dL (14.0-18.0); Immature Granulocytes # (auto) 0.01 K/uL (0.00-0.02); Immature Granulocytes % (auto) 0.2 %; Lymphocytes # (auto) 1.85 K/uL (1.2-3.4); Lymphocytes % (auto) 33.4 %; Mean Corpuscular Hemoglobin 30.8 pg (25-34); Mean Corpuscular Hgb Conc 34.6 g/dL (32-36); Mean Platelet Volume 9.7 fL (7.4-10.4); Monocytes # (auto) 0.68 K/uL (0.11-0.59); Monocytes % (auto) 12.3 %; Neutrophils % (auto) 48.7 %; Platelet Count 219 K/uL (130-400); RDW Coefficient of Variation 12.5 % (11.5-14.5); RDW Standard Deviation 40.2 fL (36.4-46.3); Red Blood Count 4.09 M/uL (4.7-6.1); White Blood Count 5.54 K/uL (4.8-10.8)
[2018-11-15 06:16] LABS: Albumin Level 3.1 gm/dl (3.4-5.0); BUN Creatinine Ratio 9.4 (10-20); Calcium 8.1 mg/dl (8.5-10.1); Creatinine Clr Calc Pharmacy 127.2 ml/min; Est GFR (African American) 122.7; Est GFR (Non-African American) 105.9; Potassium 3.7 mmol/L (3.5-5.1)
[2018-11-15 06:19] LABS: Albumin Globulin Ratio 0.9 (0.9-2); Bilirubin,Total 0.8 mg/dl (0.2-1); Globulin 3.3 gm/dl (2.5-4.0); Total Protein 6.4 gm/dl (6.4-8.2)
[2018-11-15] MEDS: SUCRALFATE 1 GM/10 ML UDC PO SCH ×4 (08:02→20:34)
[2018-11-15] MEDS: GABAPENTIN 400 MG CAP PO SCH ×3 (08:03→20:35)
[2018-11-15] MEDS: AMLODIPINE BESYLATE 5 MG TAB PO SCH (08:03)
[2018-11-15] MEDS: ASPIRIN 81 MG ECTAB PO SCH (08:03)
[2018-11-15] MEDS: SENNA 8.6 MG TAB PO SCH (08:04)
[2018-11-15] MEDS: PANTOprazole 40 MG TAB PO SCH ×2 (08:04→20:35)
--- NOTE | 2018-11-15 08:31 | Gastrointestinal Consultation ---
Date of Consultation November 15, 2018 Assessment & Plan (1) Pancreatitis: Acute pancreatitis. 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 CT during this episode with mild/early pancreatitis. Pt's pain is somewhat better since IV hydration, though persists at a 6 of 10. Plan: 1. Bowel rest: water/ice only po. If continues to improve today, could have clear liquids at supper time. 2. IV LR at 200/hr, may decrease tomorrow. 3. Analgesics prn. 4. OP MRI/MRCP In 6-8 weeks to see if any strictures amenable to stenting. 5. Check LFTs tomorrow. 6. GI will continue to follow. Attg add: I interviewed and examined pt, reviewed chart and labs. Pt with abdominal pain, increased lipase c/w acute panc. Imaging shows minimal anabelle- panc fat stranding. His pain is much improved today. Hgb fall from 15 to 12 overnight. On exam, he looks well, abd non tender. No pain meds today. Cont current management - can taper fluids tonight, diet as sammy, analgesics. Present on Admission?: Yes History of Present Illness Reason for Consultation: Recurrent pancreatitis Requesting Physician: Bacilio Delvalle MD Attending Physician: Trev Eisenberg MD History of Present Illness Mr. Moose Garcia is a 53 yr old male pt of Dr. Ancelmo Roche with a hx of Cancer chronic prostatitis, diverticular disease, HTN, migraines, MVP who presented to the ED late yesterday for abdominal pain. GI is consulted for recurrent pancreatitis. On arrival, CT with IV contrast with peripancreatic fat stranding near the pancreatic neck, suggesting mild pancreatitis vs. scarring from prior pancreatitis. Lipase 282->192 today. On arrival, WBC 7, Hb 15->12.6 today, Cr 0.73, LFTs are normal. Regarding risks for pancreatitis, he drinks about one alcohol beverage/month and did not have any on the days preceding the onset of this episode of pain. He is post cholecystectomy (after EUS after initial episode of pancreatitis in 2016 suggested the presence of sludge). EUS in 01/2017, after the second episode of pancreatitis with a sausage shaped pancreas, suggestive of autoimmune pancreatitis. EMMANUEL (-) IGG4 normal ([facility] records). Allergies Allergy/AdvReac Type Severity Reaction Status Date / Time bee venom protein (honey bee) Allergy Severe "PASSED Verified 11/14/18 17:35 OUT" Home Medications Home Medications Medication Instructions Recorded Confirmed Type amlodipine 5 mg PO QAM 11/05/17 11/14/18 History aspirin 81 mg PO QAM 11/05/17 11/14/18 History cetirizine [Zyrtec] 10 mg PO QAM 11/05/17 11/14/18 History cranberry 500 mg PO BID 11/05/17 11/14/18 History doxazosin 8 mg PO HS 11/05/17 11/14/18 History fluticasone propionate [Flonase 2 spray INTRANASAL DAILY PRN 11/05/17 11/14/18 History Allergy Relief] gabapentin 400 mg PO TID 11/05/17 11/14/18 History ginkgo biloba 40 mg PO QAM 11/05/17 11/14/18 History glucosamine-chondroitin 1 tab PO TIDM 11/05/17 11/14/18 History meloxicam 7.5 mg PO QAM 11/05/17 11/14/18 History omeprazole 20 mg PO QAM 11/05/17 11/14/18 History alum-mag hydroxide-simeth [Maalox 15 ml PO QID PRN 11/14/18 11/14/18 History Advanced] epinephrine [EpiPen 2-Steven] 0.3 mg IM Q3H PRN 11/14/18 11/14/18 History simethicone [Gas-X Extra Strength] 125 mg PO BID PRN 11/14/18 11/14/18 History Patient History Medical History Cancer BCC - REMOVED - BACK Cardiac murmur Chronic back pain Chronic prostatitis Colon polyps Diverticular disease Family history of reaction to anesthesia PT BELIEVES MOTHER HAD ANESTHESIA REACTION - DOES NOT KNOW SPECIFICS. Hearing deficit History of lumbar puncture History of viral meningitis Hypertension Migraine Mitral valve prolapse Osteoarthritis Pancreatitis Post traumatic stress disorder Surgical History History of cholecystectomy History of colonoscopy History of herniorrhaphy History of vasectomy Family History Other Cancer Diabetes Gallbladder disease Heart disease Hypertension Social History Preferred Language: [place] Communication Ability: Effective Slab Tripper Required: No Beliefs That Will Affect Care: None marital status: Current Living Situation: Spouse current occupational status: employed Other Information That Helps Us Care for You: No Feels Safe at Home: Yes Safety Concerns: Feels Safe At This Time Smoking Status: Former smoker Tobacco Type: cigarettes ; Smoking End Date: 1985 ; Second Hand Exposure: Yes ( SMOKES) ; Hx Alcohol Use: Yes Alcohol type: hard liquor Hx Substance Use: No Review of Systems Review of Systems: ROS: Gen: Denies weakness, fevers, weight loss Eyes: No eye redness, or pain, no recent vision changes Resp: No SOB, no cough Cardio: No palpitations/irregular beats, no chest pain GI: + upper abdomen pain, no nausea/vomiting : Denies pain on urination Skin: No jaundice, itching or new rashes Physical Exam Constitutional: WD/WN, vitals as above well developed, + ill appearing and cooperative Eyes: PERRL, conjunctivae normal, anicteric sclerae Respiratory: normal respiratory effort, lungs clear to auscultation normal respiratory effort and able to speak in complete sentences; no respiratory distress, no labored breathing, does not use accessory muscles and no cough Cardiovascular: RRR, no murmur, no edema Gastrointestinal (Abdomen): normal bowel sounds, soft, nontender, no hepatosplenomegaly Inspection/Auscultation: abdomen normal to inspection and normal bowel sounds; abdomen not distended and no abdominal edema Percussion/Palpation: + abdomen tender (Mild to moderate tenderness on palpation of the epigastric area.) and abdomen soft; no guarding and abdomen not rigid Skin: no rashes, warm and dry normal turgor and + pallor Neurologic: PERRL, EOMI, accommodation nl, no face palsy, no dysarthria awake; not confused Psychiatric: A+Ox3, euthymic affect Orientation: alert, oriented x 3 and cooperative Results & Data Vital Signs (Past 12 Hours) Vital Signs Temp Pulse Resp BP Pulse Ox 11/15/18 07:05 36.5 C 71 16 135/81 95 11/14/18 23:23 36.6 C 79 16 146/83 H 96 11/14/18 21:52 36.7 C 80 18 159/99 H 95 11/14/18 20:54 77 20 150/95 H 99
--- NOTE | 2018-11-15 16:40 | Hospitalist Progress Note ---
Date of Service November 15, 2018 Assessment & Plan (1) Pancreatitis: Abdominal pain secondary to Recurrent Pancreatitis History of cholecystectomy, denies alcohol intake, glycerides only 156 CT abdomen: -Trace peripancreatic fat stranding along the pancreatic neck could suggest early or mild interstitial edematous pancreatitis. Alternatively, this could the seen in the setting of peripancreatic scarring from prior pancreatitis Lipase improved from 282-182 GI consulted, recommend continuation of IV fluids, clear liquid diet, outpatient MRCP Analgesics as needed Monitor closely Nausea Resolved Hypertension Stable -continue home dose amlodipine 5 mg daily -continue home dose aspirin Full Code Status DVT prophylaxis: SCDs, ambulation Disposition Anticipate discharge to home when medically stable and cleared by gastroenterology service Subjective Follow-up for acute pancreatitis Seen resting in bed, not in distress Reports intermittent epigastric pain, sharp, nonradiating Nausea has resolved Positive flatus, no bowel movements No shortness of breath, chest pain, headache, dizziness, palpitations No other symptoms Review of Systems Review of Systems: All systems reviewed & are unremarkable except as noted in HPI & below Physical Exam Physical Exam: General- oriented x 3, not in distress, speaks in sentences with no effort or accessory muscle use Head- atraumatic Eyes- PERRL, EOMI, anicteric ENT- oropharynx clear Neck- supple, no JVD, no adenopathy, no thyromegaly; carotids +2/2, no bruits appreciated Lungs- clear to auscultation bilaterally, no rales/wheezes Heart- normal rate, regular rhythm; no murmur, no gallop, no rub appreciated Abdomen- normal bowel sounds, nondistended, soft, positive moderate tenderness to the epigastrium Extremities- no pretibial edema, no calf tenderness; peripheral pulses intact Neuro- alert, oriented x 3; CN 2-12 grossly intact; motor 5/5 bilaterally;sensation 100% on all extremities; no other gross focal neurologic deficits Skin- warm & dry Results & Data Vital Signs (Past 12 Hours) Vital Signs Temp Pulse Resp BP BP Pulse Ox 11/15/18 15:42 151/82 H 11/15/18 15:08 36.7 C 68 17 157/88 H 97 11/15/18 07:05 36.5 C 71 16 135/81 95 Laboratory Results Laboratory Results - last 24 hr 09/30/19 09/30/19 09/30/19 18:02 18:02 18:02 WBC 7.45 RBC 4.72 Hgb 15.1 Hct 41.7 L MCV 88.3 MCH 32.0 MCHC 36.2 H RDW Std Deviation 40.3 RDW Coeff of Jeanine 12.6 Plt Count 250 MPV 9.6 Immature Gran % (Auto) 0.1 Neut % (Auto) 63.9 Lymph % (Auto) 22.7 [place] % (Auto) 10.2 Eos % (Auto) 2.4 Baso % (Auto) 0.7 Immature Gran # (Auto) 0.01 Neut # (Auto) 4.76 Lymph # (Auto) 1.69 [place] # (Auto) 0.76 H Eos # (Auto) 0.18 Baso # (Auto) 0.05 Sodium 140 Potassium 3.7 Chloride 106 Carbon Dioxide 26 Anion Gap 8.0 BUN 8 Creatinine 0.88 Est Cr Clr Drug Dosing 106.1 Est GFR ( Amer) 113.7 Est GFR (Non-Af Amer) 98.1 BUN/Creatinine Ratio 9.4 L Glucose 89 Calcium 9.1 Total Bilirubin 0.8 AST 11 L ALT 23 Alkaline Phosphatase 114 Total Protein 7.8 Albumin 4.0 Globulin 3.8 Albumin/Globulin Ratio 1.1 Triglycerides Lipase 282 Urine Color Yellow Urine Appearance Clear Urine pH 6.0 Ur Specific [place] 1.011 Urine Protein Negative Urine Glucose (UA) Negative Urine Ketones Negative Urine Blood Negative Urine Nitrite Negative Urine Bilirubin Negative Urine Urobilinogen Negative Ur Leukocyte Esterase Negative 11/15/18 11/15/18 11/15/18 05:28 05:28 05:28 WBC 5.54 RBC 4.09 L Hgb 12.6 L Hct 36.4 L MCV 89.0 MCH 30.8 MCHC 34.6 RDW Std Deviation 40.2 RDW Coeff of Jeanine 12.5 Plt Count 219 MPV 9.7 Immature Gran % (Auto) 0.2 Neut % (Auto) 48.7 Lymph % (Auto) 33.4 [place] % (Auto) 12.3 Eos % (Auto) 4.5 Baso % (Auto) 0.9 Immature Gran # (Auto) 0.01 Neut # (Auto) 2.70 Lymph # (Auto) 1.85 [place] # (Auto) 0.68 H Eos # (Auto) 0.25 Baso # (Auto) 0.05 Sodium 142 Potassium 3.7 Chloride 107 Carbon Dioxide 27 Anion Gap 8.0 BUN 7 Creatinine 0.73 Est Cr Clr Drug Dosing 127.2 Est GFR ( Amer) 122.7 Est GFR (Non-Af Amer) 105.9 BUN/Creatinine Ratio 9.4 L Glucose 84 Calcium 8.1 L Total Bilirubin 0.8 AST 16 ALT 26 Alkaline Phosphatase 108 Total Protein 6.4 Albumin 3.1 L Globulin 3.3 Albumin/Globulin Ratio 0.9 Triglycerides 156 H Lipase 182 Urine Color Urine Appearance Urine pH Ur Specific [place] Urine Protein Urine Glucose (UA) Urine Ketones Urine Blood Urine Nitrite Urine Bilirubin Urine Urobilinogen Ur Leukocyte Esterase
[2018-11-15] MEDS ORDERED: ENALAPRILAT 2.5 MG in DEXTROSE 5% 25 ML IV PRN (16:42)
[2018-11-15] MEDS: DOXAZosin MESYLATE 4 MG TAB PO SCH (20:35)
[2018-11-16] MEDS: LACTATED RINGER'S 1,000 ML IV SCH ×3 (00:02→09:43)
[2018-11-16] MEDS: AMLODIPINE BESYLATE 5 MG TAB PO SCH (08:47)
[2018-11-16] MEDS: GABAPENTIN 400 MG CAP PO SCH ×2 (08:47→13:15)
[2018-11-16] MEDS: PANTOprazole 40 MG TAB PO SCH (08:47)
[2018-11-16] MEDS: SUCRALFATE 1 GM/10 ML UDC PO SCH ×2 (08:48→13:15)
[2018-11-16] MEDS: SENNA 8.6 MG TAB PO SCH (08:48)
[2018-11-16] MEDS: ASPIRIN 81 MG ECTAB PO SCH (08:48)
--- NOTE | 2018-11-16 12:31 | Gastroenterology Progress Note ---
Date of Service November 16, 2018 Assessment & Plan (1) Pancreatitis: Acute pancreatitis. 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 Pt is clinically improving. Plan: 1. Low fat diet. 2. IV LR decreased to 125/hr. 3. OP MRI/MRCP In 6-8 weeks to see if any structural reason for pancreatitis. I will place order in [facility]. 4. If able to eat, then no GI contraindication to DC. GI will sign off. Attg add: I interviewed and examined pt, reviewed chart and labs, agree with plan as above. Pt with mod improvement in pain, no use of analgesics, asmmy low fat diet. OK for d/c home on low fat diet, with f/u in GI clinic and eventual MRI/MRCP. Subjective Mr. Garcia is a 53 yr old male who was admitted on 11/[address] with IV contrast with peripancreatic fat stranding near the pancreatic neck, suggesting mild pancreatitis vs. scarring from prior pancreatitis. Lipase 282->192 -> 182 today. LFTs are normal. Regarding risks for pancreatitis, he drinks about one alcohol beverage/month and did not have any on the days preceding the onset of this episode of pain. He is post cholecystectomy (after EUS after initial episode of pancreatitis in 2016 suggested the presence of sludge). EUS in 01/2017, after the second episode of pancreatitis with a sausage shaped pancreas, suggestive of autoimmune pancreatitis. EMMANUEL (-) IGG4 normal ([facility] records). Today: Pt "much better" rates upper abdomen discomfort as a 4 and not using IV narcotics for > 24 hrs. Tolerated a clear liquid diet well yesterday. Review of Systems Review of Systems: ROS: Gen: Denies weakness, fevers, weight loss Eyes: No eye redness, or pain, no recent vision changes Resp: No SOB, no cough Cardio: No palpitations/irregular beats, no chest pain GI: + upper abdomen pain, no nausea/vomiting : Denies pain on urination Skin: No jaundice, itching or new rashes Physical Exam Constitutional: WD/WN, vitals as above well developed and cooperative Sitting up in a chair at the bedside, reading the newspaper. Eyes: PERRL, conjunctivae normal, anicteric sclerae Respiratory: normal respiratory effort, lungs clear to auscultation normal respiratory effort and able to speak in complete sentences; no respiratory distress, no labored breathing, does not use accessory muscles and no cough Cardiovascular: RRR, no murmur, no edema Gastrointestinal (Abdomen): normal bowel sounds, soft, nontender, no hepatosplenomegaly Inspection/Auscultation: abdomen normal to inspection and normal bowel sounds; abdomen not distended and no abdominal edema Percussion/Palpation: + abdomen tender (Mild to moderate tenderness on palpation of the epigastric area.) and abdomen soft; no guarding and abdomen not rigid Skin: no rashes, warm and dry normal turgor Neurologic: PERRL, EOMI, accommodation nl, no face palsy, no dysarthria awake; not confused Psychiatric: A+Ox3, euthymic affect Orientation: alert, oriented x 3 and cooperative Results & Data Vital Signs (Past 12 Hours) Vital Signs Temp Pulse Resp BP Pulse Ox 11/16/18 07:54 36.7 C 89 18 147/90 H 96
[2018-11-16 15:00] VITALS: PULSE 73; TEMP 97.5; O2SAT 93
[2018-11-16] MEDS ORDERED: ACETAMINOPHEN 325 MG TAB PO PRN (15:13)
[2018-11-16 15:48] LABS: BUN Creatinine Ratio 5.2 (10-20); Calcium 9.3 mg/dl (8.5-10.1); Creatinine Clr Calc Pharmacy 105.5 ml/min; Est GFR (African American) 113.7; Est GFR (Non-African American) 98.1; Magnesium 2.1 mg/dl (1.8-2.4); Potassium 3.5 mmol/L (3.5-5.1)
--- NOTE | 2018-11-16 15:52 | Hospitalist Progress Note ---
Date of Service November 16, 2018 Assessment & Plan (1) Pancreatitis: Abdominal pain secondary to Recurrent Pancreatitis History of cholecystectomy, denies alcohol intake days prior, tri only 156 CT abdomen: -Trace peripancreatic fat stranding along the pancreatic neck could suggest early or mild interstitial edematous pancreatitis. Alternatively, this could the seen in the setting of peripancreatic scarring from prior pancreatitis Lipase improved from 282-->182 GI consulted, recommended IV fluids, clear liquid diet, outpatient MRCP Analgesics as needed symptoms have improved, tolerated diet well advised to avoid alcohol, drink plenty of fluids ff up with GI for MRI/MRCP In 6-8 weeks to see if any structural reason for pancreatitis Nausea Resolved Hypertension mildly elevated, likely secondary to IV fluids, stress -continue home dose amlodipine 5 mg daily -continue home dose aspirin -re-check on ff up with PCP Disposition d/c to home ff up with PCP 11/21/18 ff up with [facility] as scheduled, MRCP in 6 weeks plan of care discussed with patient in detail all questions answered he is agreeable, comfortable, understanding with plan of care Subjective ff up for acute pancreatitis seen resting in bed, comfortable, not in distress states he feels better overall abdominal pain is very minimal tolerated regular diet well denies chest pain, dyspnea, dizziness, fever/chills ambulating with no problems states he is ready for discharge today Review of Systems Review of Systems: All systems reviewed & are unremarkable except as noted in HPI & below Physical Exam Physical Exam: General- oriented x 3, not in distress, speaks in sentences with no effort or accessory muscle use Eyes- anicteric Neck- no JVD Lungs- clear breath sounds bilaterally, no rales/wheezes Heart- normal rate, regular rhythm; no murmurs Abdomen- normal bowel sounds, nondistended, soft, nontender Extremities- no pretibial edema, no calf tenderness Neuro- alert, oriented x 3; no gross focal neurologic deficits Skin- warm & dry Results & Data Vital Signs (Past 12 Hours) Vital Signs Temp Pulse Resp BP Pulse Ox 11/16/18 14:58 36.4 C L 73 16 131/79 93 11/16/18 07:54 36.7 C 89 18 147/90 H 96 Laboratory Results Laboratory Results - last 24 hr 11/16/18 14:48 Sodium 141 Potassium 3.5 Chloride 108 H Carbon Dioxide 26 Anion Gap 8.0 BUN 5 L Creatinine 0.88 Est Cr Clr Drug Dosing 105.5 Est GFR ( Amer) 113.7 Est GFR (Non-Af Amer) 98.1 BUN/Creatinine Ratio 5.2 L Glucose 115 H Calcium 9.3 Magnesium 2.1 Specimen Hemolysis
--- NOTE | 2018-11-16 16:09 | Discharge Summary ---
Date of Service November 16, 2018 Admission HPI Per Admitting Provider This is a 53 year old male who as per review of outpatient chart review has history of recurrent versus chronic pancreatitis who presents to the hospital on 11/14/18 with abdominal pain that was going on for 2 days. Patient reports the pain which is around the epigastrum and umbilical area became worse today so he came to the emergency room. Patient also on review of systems with nausea. denies vomiting. denies fever. patient has been taking Meloxicam daily for 5 years. denies blood in stool or in urine. denies dysuria recently. no upper chest pain. no shortness of breath. no dizziness. no lightheadedness. denies history of diabetes. denies smoking tobacco, denies alcohol use. Emergency room testing remarkable for "Trace peripancreatic fat stranding along the pancreatic neck could suggest early or mild interstitial edematous pancreatitis" Admission Exam Per Admitting Provider Constitutional: WD/WN, vitals as above Eyes: PERRL, conjunctivae normal, anicteric sclerae EOM intact bilaterally ENMT: external ear and nose normal, oropharynx normal Respiratory: normal respiratory effort, lungs clear to auscultation Cardiovascular: Rate/Rhythm: regular rate and regular rhythm Gastrointestinal (Abdomen): Inspection/Auscultation: normal bowel sounds Percussion/Palpation: + abdomen tender (central abdomen and epigastric tenderness to palpitation) and abdomen soft Neurologic: PERRL, EOMI, accommodation nl, no face palsy, no dysarthria CN's II-XI intact bilaterally Psychiatric: A+Ox3, euthymic affect Principal Diagnosis ACUTE PANCREATITIS Discharge Exam General- oriented x 3, not in distress, speaks in sentences with no effort or accessory muscle use Eyes- anicteric Neck- no JVD Lungs- clear breath sounds bilaterally, no rales/wheezes Heart- normal rate, regular rhythm; no murmurs Abdomen- normal bowel sounds, nondistended, soft, nontender Extremities- no pretibial edema, no calf tenderness Neuro- alert, oriented x 3; no gross focal neurologic deficits Skin- warm & dry Discharge Data Allergies Allergy/AdvReac Type Severity Reaction Status Date / Time bee venom protein (honey bee) Allergy Severe "PASSED Verified 11/14/18 17:35 OUT" Consultations 11/14/18 19:53 ED Decision to Admit Stat 11/15/18 07:55 Consult Gastroenterology Routine Ordered Studies 11/14/18 17:27 CT abd pelvis IV con only Stat CT abd pelvis IV con only CLINICAL HISTORY: 53 years-old Male presenting with generalized abdominal pain, history of pancreatitis, nephrolithiasis, and diverticulitis. TECHNIQUE: Multidetector CT of the abdomen and pelvis was performed after the administration of intravenous contrast. IV contrast: 94 mL of Optiray 320. One or more dose lowering techniques were used consistent with the principles of ALARA (as low as reasonably achievable), including automatic exposure control, mA or kV adjustment to individual patient size, and/or use of iterative reconstruction. COMPARISON: 07/24/2018. CT DOSE (mGy.cm): The estimated cumulative dose is 875.31 mGycm. FINDINGS: Apartment Manager topogram: Cholecystectomy and vasectomy lips. Lung bases: Normal heart size. Coronary artery calcification. No pericardial or pleural effusion. Minimal dependent changes likely atelectasis. Liver: Normal morphology. Density suggestive of hepatic steatosis. Vague hypodensity along the fissure for the falciform ligament likely perfusional variation or focal fat. Patent hepatic vasculature. Biliary: Mild biliary ductal prominence likely a reservoir effect in the post cholecystectomy state. Gallbladder surgically absent. Pancreas: Mild parenchymal atrophy. Trace peripancreatic fat stranding along the pancreatic neck. Spleen: Normal. Adrenal glands: Normal. Kidneys and ureters: Resolution of prior left hydroureteronephrosis with passage of the prior distal left ureteral calculus. Renal vascular calcification noted. No new renal calculus. Normal renal parenchyma. Resolution of prior perinephric fat stranding. Ureters are now nondistended. Bladder: Circumferential bladder wall thickening. Pelvic organs: Prostate enlargement likely secondary to benign prostatic hyperplasia. Bowel: Diverticulosis of the proximal to mid sigmoid colon and descending colon without wall thickening or pericolonic inflammatory change. No bowel obstruction. The appendix is normal. Peritoneal cavity: No free fluid or intraperitoneal gas. Lymph nodes: No enlarged lymph nodes in the abdomen or pelvis. Vasculature: Atherosclerosis of the normal caliber abdominal aorta. IVC patent. Abdominal wall: Small fat-containing left inguinal hernia. Vasectomy clips noted. Musculoskeletal: Degenerative changes of the spine. IMPRESSION: 1. Trace peripancreatic fat stranding along the pancreatic neck could suggest early or mild interstitial edematous pancreatitis. Alternatively, this could the seen in the setting of peripancreatic scarring from prior pancreatitis. Correlate with lipase. 2. Resolution of prior left hydroureteronephrosis with passage of the prior distal left ureteral calculus. 3. Diverticulosis coli without evidence of diverticulitis. Hospital Course (1) Pancreatitis: Abdominal pain secondary to Recurrent Pancreatitis History of cholecystectomy, denies alcohol intake days prior, triglycerides only 156 CT abdomen: -Trace peripancreatic fat stranding along the pancreatic neck could suggest ear ly or mild interstitial edematous pancreatitis. Alternatively, this could the seen in the setting of peripancreatic scarring from prior pancreatitis GI consulted- Dr. Singh, recommended IV fluids, clear liquid diet, outpatient MRCP Lipase improved from 282-->182 Analgesics as needed symptoms have improved, tolerated diet well advised to avoid alcohol, drink plenty of fluids ff up with GI for MRI/MRCP In 6-8 weeks to see if any structural reason for pancreatitis Nausea Resolved Hypertension mildly elevated, likely secondary to IV fluids, stress -continue home dose amlodipine 5 mg daily -continue home dose aspirin -re-check on ff up with PCP Disposition d/c to home ff up with PCP 11/21/18 ff up with Labor Relations Supervisor as scheduled, MRCP in 6 weeks plan of care discussed with patient in detail all questions answered he is agreeable, comfortable, understanding with plan of care Total Time Total Time Spent Total Time Spent (In Minutes): 45 minutes Discharge Plan Discharge Items Patient Disposition: Home - Self-Care Reason For Visit: ABDOMINAL PAIN,PANCREATITIS Discharge Diagnosis: ACUTE PANCREATITIS Activity: As commented below Activity Comment: RESUME ACTIVITY GRADUALLY TOLERATED Lifting: Wait until after follow-up appointment Exercise/Sports: Wait until after follow-up appointment Driving/Machine Use: NO DRIVING UNTIL RE-EVALUATED BY PRIMARY CARE PHYSICIAN Non-emergency contact: Primary Care Provider and Labor Relations Supervisor Call non-emergency contact if: you have any medication questions Follow-up/Referrals: Ishmael Singh [Physician] - Ancelmo Chen DO [Primary Care Provider] - 11/21/18 11:10 am Diet: Heart Healthy and Low Fat Addtl Attending Provider Instructions: DRINK PLENTY FLUIDS. SMALL FREQUENT MEALS, LOW FAT. RETURN TO THE ER IMMEDIATELY IF WITH RECURRENCE OR WORSENING OF SYMPTOMS, INCLUDING ABDOMINAL PAIN, NAUSEA, FEVER/CHILLS. FOLLOW UP WITH DR. CHEN NEXT WEEK OUTLINED ABOVE. FOLLOW UP WITH BRICK MACHINE OPERATOR SCHEDULED. THE CLINIC WILL BE CALLING YOU FOR THE APPOINTMENT. Pending Studies at Discharge: No Stand-Alone Forms: Call Back Authorization, My [facility] Medications and DC Order Prescriptions: Continued simethicone [Gas-X Extra Strength] 125 mg Capsule 125 mg PO BID PRN (Reason: Gas) RF: 0 alum-mag hydroxide-simeth [Maalox Advanced] 200-200-20 mg/5 mL Suspension 15 ml PO QID PRN (Reason: Gas ) RF: 0 epinephrine [EpiPen 2-Steven] 0.3 mg/0.3 mL Auto-Injector 0.3 mg IM Q3H PRN (Reason: Anaphylaxis) RF: 0 cetirizine [Zyrtec] 10 mg Tablet 10 mg PO QAM RF: 0 gabapentin 400 mg Capsule 400 mg PO TID RF: 0 amlodipine 5 mg Tablet 5 mg PO QAM RF: 0 aspirin 81 mg Tablet,Delayed Release (Dr/Ec) 81 mg PO QAM RF: 0 meloxicam 7.5 mg Tablet 7.5 mg PO QAM RF: 0 ginkgo biloba 40 mg Tablet 40 mg PO QAM RF: 0 doxazosin 8 mg Tablet 8 mg PO HS RF: 0 fluticasone propionate [Flonase Allergy Relief] 50 mcg/actuation Erhard,Suspension 2 spray INTRANASAL DAILY PRN (Reason: Congestion) RF: 0 glucosamine-chondroitin 500-400 mg Tablet 1 tab PO TIDM RF: 0 cranberry 500 mg Capsule 500 mg PO BID RF: 0 omeprazole 20 mg Tablet,Delayed Release (Dr/Ec) 20 mg PO QAM RF: 0 Discharge Orders: Discharge Order (Routine); Ordered 11/16/18 Ordered By: Trev Eisenberg Admission Data Admit Date/Time: 11/14/18 20:54 Attending Provider: Trev Eisenberg Admit Provider: Bacilio Delvalle Primary Care Provider: Ancelmo Chen Other Providers: Mark Johnson ; Ishmael Singh
[2018-11-16 16:46] VITALS: BP 135/81
== END 2018-11-16 17:15 | disposition home or self-care (01) | DRG 440 ==
LOC: ED 15:45 → 3E 20:54 → SUATTDRO 20:54 → 3E 21:41

== ENCOUNTER 2023-11-07 13:50 | Inpatient (IN) ==
--- OUTSIDE RECORDS SUMMARY | 2023-11-07 13:54 | External Medical Summary | Summary of Care ---
Author Name Unknown Organization [facility] Address [address] [place] [address] Phone [phone] Care Team Providers Care Metal Annealer Name Role Phone Gómez Roche DO Primary Care Provider Reason for Visit * Reason Comments NEW PATIENT * Evaluate & Treat - Unlimited Visits (Within 30 days (routine)) - Authorized Specialty Diagnoses / Procedures Referred By Contnica t Referred To Contact Urology Diagnoses Gross hematuria Gómez Roche, DO [address] [place], [place] [address] Referral ID Status Reason Start Date Expiration Date Visits Requested Visits Authorized [id number] Authorized Specialty Services Required 10/08/[phone] Encounter Details Date Type Department Care Team (Late st Contact Info) Description 11/03/2023 1:30 PM EDT Office Visit Urology Fran Lara [address] [place] [address] Nithya Carter PA-C [address] [place] [id number] Hematuria, gross*; Dysuria; BPH with obstruction/lower urinary tract symptoms; Retention of urine; Hematospermia Allergies Active Allergy Reactions Criticality Noted Date Comments Bee Stings Edema face/lips/tongue High 10/19/2008 documented as of this encounter (statuses as of 11/05/2023) Medications Medication Sig Dispensed Refills Start Date End Date Status GLUCOSAMINE CHONDROITIN COMPLX 500-400 MG PO TABS Take 1 Capsule by mouth in the morning. Active Aspirin 81 MG Oral Tablet Delayed Release Take 1 Tablet by mouth in the morning. 100 Tab 5 0 Active CRANBERRY 500 MG PO CAPS Take 1 Capsule by mouth in the morning. 2 Active Ginkgo Biloba 40 MG CAPS Take 40 mg by mouth in the morning. Active Turmeric 450 MG Oral Capsule Take 2 Capsules by mouth in the morning. Active EPINEPHrine 0.3 MG/0.3ML Injection Solution Auto-injector (Autoinjector) Inject 0.3 mg into a large muscle as needed for Allergies or Other (sting). Into thigh . 1 Each 2 Active Doxazosin Mesylate 4 MG Oral Tablet (Cardura)Indications:PTSD (post-traumatic stress disorder),Moderate episode of recurrent major depressive disorder (HCC) TAKE 1 TABLET BY MOUTH AT BEDTIME. 90 Tablet 3 3 Active Cetirizine HCl 10 MG Oral Tablet (ZyrTEC) Take 1 Tablet by mouth in the morning. 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 90 Tablet 3 4 Active amLODIPine Besylate 5 MG Oral Tablet (Norvasc)Indications:HTN, goal below 140/90 TAKE ONE TABLET BY MOUTH IN THE MORNING 30 Tablet 11 4 Active levETIRAcetam 500 MG Oral Tablet (Keppra) Take 1 Tablet by mouth in the morning and 1 Tablet before bedtime. 60 Tablet 5 4 Active Gabapentin 300 MG Oral Capsule (Neurontin)Indications:Aminah mbar radiculopathy TAKE 1 CAPSULE BY MOUTH IN THE MORNING AND 1 CAPSULE AT NOON AND 1 CAPSULE BEFORE BEDTIME. 90 Capsule 5 4 07/06/19 25 Active Escitalopram Oxalate 20 MG Oral Tablet (Lexapro)Indications:PTSD (post-traumatic stress disorder),Moderate episode of recurrent major depressive disorder (HCC) Take 1 Tablet by mouth in the morning. 90 Tablet 2 4 Active Omeprazole 20 MG Oral Capsule Delayed Release (PriLOSEC) TAKE 1 CAPSULE BY MOUTH IN THE MORNING. 90 Capsule 2 4 Active Fluticasone Propionate 50 MCG/ACT Nasal Suspension (Flonase)Indications:Dizz iness Administer 2 Sprays into each nostril in the morning. 16 g 5 4 Active Finasteride 5 MG Oral Tablet (Proscar) Take 1 Tablet by mouth in the morning. 90 Tablet 3 4 Active documented as of this encounter (statuses as of 11/05/2023) Active Problems Problem Noted Date Diagnosed Date Neuropathy 03/18/2023 Herniated lumbar intervertebral disc 03/18/2023 Received intravenous tissue plasminogen activator (tPA) in emergency department 03/17/2023 New onset seizure with abnor mal neurological exam without head trauma 03/17/2023 Moderate episode of recurrent major depressive d isorder 07/31/2019 Other chronic pancreatitis 07/15/2018 Primary hypertension 09/29/2017 PTSD (post-traumatic stress disorder) 07/19/2017 Recurrent pancreatitis 06/07/2017 Neurogenic bladder 03/31/2017 Osteoarthritis, hand 03/14/2013 Family history of diabetes mellitus 07/23/2009 Chronic prostatitis 10/15/2008 documented as of this encounter (statuses as of 11/05/2023) Resolved Problems Problem Noted Date Diagnosed Date Resolved Date Right sided weakness 03/17/2023 024 Hypokalemia 03/17/2023 03/18/2023 Numbness and tingling in left hand 03/13/2023 03/18/2023 Intractable migraine with au ra without status migrainosus 03/13/2023 03/18/2023 documented as of this encounter (statuses as of 11/05/2023) Immunizations Name Administration Dates Next Due COVID-19 mRNA, LNP-s, No Pre serve, 2-Dose Series (SignalDemand) 11/14/2020,10/24/2020 Seasonal Influenza, PF, 6 M & above, IM , (FluLaval or Fluzone) 01/20/2023,12/16/2021,04/09/2020,2017 Seasonal Influenza, Quadriva lent, No Preserve, IM 10/26/2018 Seasonal Influenza, Trivalen t, (IIV3), with Preserv, (Fluzone) 12/12/2016 TD, Preservative Free 09/11/2019 TDAP, Age 7 and older, IM (Adacel) 07/23/2009 Zoster Vaccine Recombinant (Shingrix) 12/20/2017 ,10/11/2017 documented as of this encounter Social History Tobacco Use Types Packs/Day Years Used Date Smoking Tobacco: Never Smokeless Tobacco: Never Alcohol Use Standard Drinks/Week Comments Yes 0 (1 standard drink = 0.6 oz pur e alcohol) socially monthly PHQ-2 Answer Date Recorded PHQ-2 Score 0 05/26/2019 Hunger Vital Sign Answer Date Recorded Within the past 12 months, y ou worried that your food would run out before you got the money to buy more. Never true 03/19/19 24 Within the past 12 months, t he food you bought just didn't last and you didn't have money to get more. Never true 03/19/2023 Childcare Answer Date Recorded Do you feel overwhelmed with taking care of a child, family member or friend? No 03/19/2023 Does your family need help f inding childcare? (Household - for ages 0-17 years) Not on file 03/19/2023 Clothing Answer Date Recorded Have you been unable to get clothing when it was really needed? No 03/19/2023 Is your family able to get c lothes or diapers when needed? (Household - for ages 0-17 years) Not on file 03/19/2023 Personal Safety Answer Date Recorded Do you feel unsafe or have concerns for your saf ety? No 03/19/2023 Do you have concerns for you r family's safety? (Household - for ages 0-17 years) Not on file 03/19/2023 Utilities Answer Date Recorded Do you have trouble paying y our heating, water, or electric bill? No 03/19/2023 Is your family able to pay t he heat, water, or electric bill? (Household - for ages 0-17 years) Not on file 03/19/2023 Does your family have access to good internet? (Household - for ages 0-17 years) Not on file 03/19/2023 Employment Status Answer Date Recorded Are you unemployed or without regular income? No 03/19/2023 Does the household have a re gular source of income? (Household - for ages 0-17 years) Not on file 03/19/2023 Social Connections Answer Date Recorded How often do you feel lonely or isolated from th ose around you? Never 03/19/2023 Financial Resource Strain Answer Date R ecorded Do you have any trouble payi ng for your medications, or do you think you might in the future? No 03/19/2023 Does your family have troubl e paying for medicine? (Household - for ages 0-17 years) Not on file 03/19/2023 Transportation Needs Answer Date Record ed READ ONLY Do you have troubl e getting a ride to medical visits or work? Never True 03/19/2023 Does your family have a hard time getting a ride to doctors visits? (Household - for ages 0-17 years) Not on file 03/19/2023 Has lack of transportation k ept you from medical appointments, meetings, work, or from getting things needed for daily living? Check all that apply. (Adult - for ages 18 years and over) Not on file 03/19/2023 Do you (or your family) have trouble finding or paying for a ride (transportation)? (Household - for ages 0-17 years) Not on file 03/19/2023 Housing Stability Answer Date Recorded Do you currently live in a s helter or have no steady place to sleep at night? No 03/19/2023 READ ONLY Do you think you a re at risk of becoming homeless? No 03/19/2023 Does your family worry about paying for your home or becoming homeless? (Household - for ages 0-17 years) Not on file 0 03/19/2023 Are you homeless or worried that you might be in the future? (Adult - for ages 18 years and over) Not on file Are you (or your family) lópez eless or worried that you might be in the future? (Household - for ages 0-17 years) Not on file Food Insecurity Answer Date Recorded Do you need food for this week? No 03/19/2023 Are you able to get enough f ood for your family? (Household - for ages 0-17 years) Not on file 03/19/2023 Does your family need food t his week? (Household - for ages 0-17 years) Not on file 03/19/2023 Do you always have enough fo od for your family? (Household - for ages 0-17 years) Not on file 03/19/2023 Sex and Gender Information Value Date Recorded Sex Assigned at Male 05/26/2019 1:32 PM EDT Gender Identity Male 05/26/2019 1:32 PM EDT Sexual Orientation Straight 03/19/2023 10 :48 AM EST Job Start Date Occupation Industry Not on file Not on file Not on file documented as of this encounter Progress Notes * Nithya Carter PA-C - 11/03/2023 1:36 PM EDT [id number] PCP: GÓMEZ [address] [place] [id number] Moose Garcia is a 58 year old male, who presents in referral for evaluation of gross hematuria andhematospermia. Patient stated he has experienced dark urine over the past few months for a couple days at a time. He stated he thought it looked like blood due to the dark color. He stated he has also experienced blood streaks in his semen for years. He stated he feels like there is urine in his semen as well as it was very watery and dark. He noted he also has been experiencing painful erectionsspecifically burning through his penis. He stated he also occasionally experiences this with urination. He noted he has a significant history of following with Urology (Dr. Klein). He noted he was di agnosed with a neurogenic bladder and was performing CIC twice daily. He stated he has not seen a urologist since Dr. Klein left and has not been performing CIC. He stated he thinks he was using a 14 [place] catheter. He stated he does not think he is emptying his bladder. He noted he has continueddoxazosin therapy. He noted he was currently voiding very frequently in small amounts at a time. Heendorsed nocturia x 2-4. He noted he drinks approximately 64 fluid oz of water per day. He denied tobacco use. He denied family history of prostate cancer. He denied fever, chills, nausea, vomiting, and abdominal pain. BPH: Patient is being seen for BPH today. He has had the following symptoms: slow stream, nocturia x 2-4, urgency, incomplete emptying, and frequency. Severity is moderate. He has tried tamsulosin and doxazosin. He has previously had no surgery done. Problem has been present for years. Problem is about the same. PSA Results: Lab Results Component Value Date/Time PSA - [facility] 2.71 10/08/2023 03:42 PM PSA - [facility] 1.09 03/31/2017 03:25 PM PSA SCREENING 0.70 04/16/2010 07:47 AM Current Outpatient Medications Medication Sig Dispense Refill GLUCOSAMINE CHONDROITIN COMPLX 500-400 MG PO TABS Take 1 Capsule by mouth in the morning. Aspirin 81 MG Oral Tablet Delayed Release Take 1 Tablet by mouth in the morning. 100 Tab 5 CRANBERRY 500 MG PO CAPS Take 1 Capsule by mouth in the morning. Ginkgo Biloba 40 MG CAPS Take 40 mg by mouth in the morning. Turmeric 450 MG Oral Capsule Take 2 Capsules by mouth in the morning. EPINEPHrine 0.3 MG/0.3ML Injection Solution Auto-injector (Autoinjector) Inject 0.3 mg into a largemuscle as needed for Allergies or Other (sting). Into thigh . 1 Each 0 Doxazosin Mesylate 4 MG Oral Tablet (Cardura) TAKE 1 TABLET BY MOUTH AT BEDTIME. 90 Tablet 3 Cetirizine HCl 10 MG Oral Tablet (ZyrTEC) Take 1 Tablet by mouth in the morning. SUMAtriptan Succinate 50 MG Oral Tablet (Imitrex) Take 2 tablets at onset of migraine and one tablet every 2 hours as needed, not more than 5 tablets in 24 hours 12 Tablet 5 Atorvastatin Calcium 40 MG Oral Tablet (Lipitor) Take 1 Tablet by mouth every afternoon. 90 Tablet 3 amLODIPine Besylate 5 MG Oral Tablet (Norvasc) TAKE ONE TABLET BY MOUTH IN THE MORNING 30 Tablet 11 levETIRAcetam 500 MG Oral Tablet (Keppra) Take 1 Tablet by mouth in the morning and 1 Tablet beforebedtime. 60 Tablet 5 Gabapentin 300 MG Oral Capsule (Neurontin) TAKE 1 CAPSULE BY MOUTH IN THE MORNING AND 1 CAPSULE AT NOON AND 1 CAPSULE BEFORE BEDTIME. 90 Capsule 5 Escitalopram Oxalate 20 MG Oral Tablet (Lexapro) Take 1 Tablet by mouth in the morning. 90 Tablet 2 Omeprazole 20 MG Oral Capsule Delayed Release (PriLOSEC) TAKE 1 CAPSULE BY MOUTH IN THE MORNING. 90Capsule 2 Fluticasone Propionate 50 MCG/ACT Nasal Suspension (Flonase) Administer 2 Sprays into each nostril in the morning. 16 g 5 No current facility-administered medications for this visit. Review of patient's allergies indicates: Allergen Reactions Bee Stings Edema face/lips/tongue Social History: Social History Tobacco Use Smoking status: Never Smokeless tobacco: Never Substance Use Topics Alcohol use: Yes Comment: socially monthly Vaping/E-Cigarette Use Vaping/E-Cigarette Use Never User Passive Exposure No Counseling Given? No Vaping/E-Cigarette Substances Nicotine No Other No Flavoring No THC No Cannabidiol (CBD) No Vaping/E-Cigarette Devices Disposable No Pre-filled or Refillable Cartridge No Refillable Tank No Family History Problem Relation Name Age of Onset Diabetes Mother 60 Hypertension Mother Stroke Mother Neurological Disorder Mother alzheimer Arthritis Mother RA Cancer Father 50 skin Arthritis Father 40 RA, psoriatic arthropathy Cancer Sister Mcdonald 48 skin Cancer Brother Ti 48 skin Heart Disorder Brother Da 46 heart attack Obesity Brother Da Past Surgical History: Procedure Laterality Date COLONOSCOPY, DIAGNOSTIC (RECTUM) 04/16/2017 adenomatous & hyperplastic polyps, diverticulosis, repeat 5 yrs/COLONOSCOPY FLEXIBLE PROXIMAL DIAGNOSTIC performed by Irma Swenson DO at [facility] COLONOSCOPY, DIAGNOSTIC (RECTUM) 09/24/2022 multi polyps in transverse, sigmoid, moderate diverticulosis in sigmoid & descending / biopsiesbenign adenomatous polyps / 5 year recall / COLONOSCOPY FLEXIBLE PROXIMAL DIAGNOSTIC performed by Irma Swenson DO at [facility] CYSTOSCOPY 01/06/2011 EGD, W/ENDOSCOPIC US 05/17/2015 GB sludge/ESOPHAGOGASTRODUODENOSCOPY (EGD), FLEXIBLE, TRANSORAL, ENDOSCOPIC ULTRASOUND performed byJavier Cespedes MD at [facility] EGD, W/ENDOSCOPIC US 01/27/2017 autoimmune pancreatitis, fatty liver, mild gastritis/ESOPHAGOGASTRODUODENOSCOPY (EGD), FLEXIBLE, TRANSORAL, ENDOSCOPIC ULTRASOUND performed by Irma Swenson DO at [facility] EGD, W/ENDOSCOPIC US 07/26/2019 multiple gastric polyps/biopsies show fundic gland polyps/ESOPHAGOGASTRODUODENOSCOPY (EGD), FLEXIBLE, TRANSORAL, ENDOSCOPIC ULTRASOUND performed by Irma Swenson DO at [facility] INJECT DX/THER SUBSTANCE INTERLAMINAR LUMBAR/SACRAL W IMAGE GUIDE 02/19/2022 INJECTION SPINE LUMBAR OR SACRAL performed by Jas Pollard DO at OR [facility] LAPAROSCOPY; CHOLECYSTECTOMY N/A 05/29/2015 LAPAROSCOPIC CHOLECYSTECTOMY performed by Adeline Swenson MD at OR [facility] REPAIR INITIAL INGUINAL HERNIA REDUCIBLE AGE 5 OR MORE 1996 Inguianl hernia Repair, age 5+ yr REPAIR INITIAL INGUINAL HERNIA REDUCIBLE AGE 5 OR MORE 2001 Inguianl hernia Repair, age 5+ yr VASECTOMY Past Medical History: Diagnosis Date Displacement of lumbar intervertebral disc without myelopathy Hypertension Mitral valve prolapse 2001 OTHER 2009 not emptying bladder comlpletely, Dr. Klein Patient Active Problem List Diagnosis Chronic prostatitis Family history of diabetes mellitus Osteoarthritis, hand Neurogenic bladder Recurrent pancreatitis PTSD (post-traumatic stress disorder) Primary hypertension Other chronic pancreatitis (HCC) Moderate episode of recurrent major depressive disorder (HCC) Received intravenous tissue plasminogen activator (tPA) in emergency department New onset seizure with abnormal neurological exam without head trauma (HCC) Neuropathy Herniated lumbar intervertebral disc Constitutional: (-) fever chills sweats or weight loss Abdominal/GI: (-) negative: no pain, heartburn, dysphagia, bleeding, change in bowel habits, nauseaor vomiting Male : see HPI Skin: (-) negative: no rash or new or changing moles Neurology: (-) negative: no focal neurologic defect Physical Exam Nursing note reviewed. Constitutional: General: He is not in acute distress. Appearance: Normal appearance. He is not toxic-appearing. HENT: Head: Normocephalic and atraumatic. Right Ear: External ear normal. Left Ear: External ear normal. Nose: Nose normal. Mouth/Throat: Mouth: Mucous membranes are moist. Pharynx: Oropharynx is clear. Pulmonary: Effort: Pulmonary effort is normal. No respiratory distress. Genitourinary: Comments: 45 gram prostate, no induration or nodules, no seminal vesicle abnormalities, normal rectal tone Musculoskeletal: Comments: LLE tremor/shaking d/t spine pathology Skin: General: Skin is warm and dry. Coloration: Skin is not jaundiced or pale. Neurological: General: No focal deficit present. Mental Status: He is alert and oriented to person, place, and time. Motor: No weakness. Gait: Gait normal. Psychiatric: Mood and Affect: Mood normal. Behavior: Behavior normal. Thought Content: Thought content normal. Judgment: Judgment normal. 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 Software Implementation Specialist present for physical exam: Lynda Martinez LPN PVR- 316 mL Labs: Creatinine Results: Lab Results Component Value Date/Time CREATININE - [facility] 0.9 10/08/2023 03:51 PM CREATININE - [facility] 0.8 03/29/2023 02:28 PM CREATININE - [facility] 0.8 03/18/2023 05:25 AM CREATININE - [facility] 0.9 11/21/2018 11:56 AM CREATININE - [facility] 0.99 05/04/2018 12:00 AM CREATININE - [facility] 0.7 03/22/2018 08:58 AM CREATININE - [facility] 0.8 09/14/2017 12:14 PM CREATININE, RANDOM URINE - [facility] 163 04/17/2022 10:37 AM Imaging: CT Urogram 10/21/23 IMPRESSION 1. No finding to explain the patient's hematuria. 2. Chronic findings, as above. Impression/Plan: 58-year-old male with urinary retention, BPH with LUTS, gross hematuria, hematospermia, and history of neurogenic bladder. Findings reviewed with the patient, and we discussed we are pleased to see his CT urogram was negative for urologic pathology. I would recommend proceeding with a cystoscopy to complete hematuria workup and evaluate for cause of retention. However I suspect his retention is secondary to BPH and/or neurogenic bladder. We are pleased to see PSA and BERRY are benign in setting of hematospermia. I would not recommend further evaluation. However I would continue annual PSAs and DREs. We discussed patient's symptoms may be secondary to his retention specifically hematuria. I would recommend restarting patient on CIC twice daily. CIC teaching done in the office to ensure he did not meet resistance. I would recommend using a 14 Fr coude due to BPH. Encouraged patient to increase to 3-4 x per day ifurine output volumes are greater than 400 mL. We will continue patient on doxazosin, and I would recommend starting finasteride in setting of BPH. We discussed indications and side effects, and patient verbalizes understanding and agrees to proceed. Due to patient's dysuria, I would also recommend urine studies to evaluate for infection and microhematuria. We will notify patient of results. We will plan to have patient follow up for next available cystoscopy at [facility] per patient preference. Patient should call in the meantime with new or worsening symptoms. All questions and concerns addressed to patient's satisfaction. Nithya Carter PA-C 1:37 PM 11/03/2023 documented in this encounter Nursing Notes * Lynda Martinez LPN - 11/03/2023 1:32 PM EDT New patient presents for evaluation of gross hematuria and blood in semen. States he noticed the blood for a couple of days, consistently. States he also had burning at the tip of his penis (which isstill present). Notes that he's had blood in semen for several years, also notes he has painful ejaculations. CT Urogram completed recently. documented in this encounter Plan of Treatment Upcoming Encounters Date Type Department Care Team (Late st Contact Info) Description 11/15/2023 10:00 AM EDT Office Visit Neurology [facility] [address] [facility] [place] [id number] Shirin Pisano MD [address] [facility] [place] [phone] 12/31/2023 2:00 PM EST Office Visit Urology Fran Lara [address] [place] [address] Jason Tinoco MD [address] [place] [address] 04/12/2024 3:20 PM EST Office Visit Family Practice [facility] [address] [facility] [place] [address] Gómez Roche DO [address] [facility] [place] [id number] Pending Results Name Type Priority Associated Diagnoses Date /Time URINALYSIS WITH MICROSCOPIC EXAM Lab Routine Dysuria Hematuria, gross 11/05/2023 10:45 AM EDT Scheduled Orders Name Type Priority Associated Diagnoses Orde r Schedule URINALYSIS WITH MICROSCOPIC EXAM Lab Routine Dysuria Hematuria, gross Expected: 11/03/2023, Expires: 11/02/2024 CULTURE, URINE, QUANTITATIVE Lab Routine Dysuria Hematuria, gross Expected: 11/03/2023 (Approximate), Expires: 11/02/2024 Scheduled Procedures Name Priority Associated Diagnoses Date/Ti me COLONOSCOPY FLEXIBLE PROXIMAL DIAGNOSTIC Recall History of colon polyps Health Maintenance Due Date Last Done Comments Hepatitis C Screening 06/05/1983 Hepatitis B Vaccine (1 of 3 - 19+ 3-dose series) 1984 Cologuard 2010 Fecal Occult Blood Test 2010 Sigmoidoscopy 2010 Depression Monitoring 05/25/2020 05/26/2019 COVID-19 Vaccine ( season) 2023 11/14/2020, 10/24/2020 Influenza Vaccine (FLU shot) (#1) 2023 01/20/2023, 12/16/2021, 04/09/2020, Additional history exists GFR 10/07/2024 10/08/2023, 03/18, 03/18/2023, Additional history exists Albumin/Creatinine Ratio 04/17/2025 04/17/2022 Diabetes Screening 03/29/2026 03/29/2023, 0 03/18/2023, 03/17/2023, Additional history exists Colonoscopy 09/25/2027 09/24/2022, 09/15, 04/16/2017, Additional history exists Colorectal Cancer Screening 09/25/2027 Lipid Panel 03/17/2028 03/17/2023, 0304/2022, 01/16/2019, Additional history exists DTap/Tdap Vaccines (3 - Td or Tdap) 09/10/2029 09/11/2019, 07/23/2009 Zoster Vaccines Completed 12/20/2017, 10/11/2017 RETIRED - COLONOSCOPY-EVERY 5 YRS AGES 18-100 Discontinued 09/24/2022, 09/24/2022, 04/16/2017, Additional history exists HPV (Gardasil) Vaccine Aged Out No lo nger eligible based on patient's age to complete this topic MENINGOCOCCAL (MENACTRA/MENVEO) Aged Out No longer eligible based on patient's age to complete this topic Pneumococcal Vaccine: Pediatrics (0 to 5 Years) and At-Risk Patients (6 to 64 Years) Aged Out No longer eligible based on patient's age to complete this topic documented as of this encounter Medical Devices Implanted Type Area It Architect Device Identifier Shelf Expiration Date Model / Serial / Lot Hemostatic Clip Res 235cm - [id number] Implanted:Qty: 2 on 09/24/2022 by Irma Swenson DO at [facility]COPY [facility] Colon [employer] : ENDOSCOPY 04/16/2025 [id number] / / documented as of this encounter Visit Diagnoses Diagnosis Hematuria, gross- Primary Gross hematuria Dysuria BPH with obstruction/lower urinary tract symptoms Hypertrophy of prostate with urinary obstruction and other lower urinary tract symptoms (LUTS) Retention of urine Retention of urine, unspecified Hematospermia documented in this encounter Advance Directives * Full Code (Latest Code Status on File) Date Activated Date Inactivated Comments 03/17/2023 11:44 AM 03/18/2023 9:52 PM This order r eflects the patients wishes and were consensually agreed upon. Question Answer Comments Discussion of Advance Direct estefani occurred with: Not Discussed due to patient's condition Does the patient have a Living Will? No Does the patient have Health Care Power of Registered Nurse Cardiovascular Icu? No Care Teams Metal Annealer Relationship Specialty Start Date End Date Gómez Roche DO [facility] [place] [address] PCP - General Family Medicine 12/15/16 documented as of this encounter
--- OUTSIDE RECORDS SUMMARY | 2023-11-07 13:55 | External Medical Summary | Summary of Care ---
Author Name Unknown Organization [facility] Address [address] [place] [address] Phone [phone] Care Team Providers Care Mangle Press Catcher Name Role Phone Gómez Chen DO Primary Care Provider [phone] Reason for Visit * Reason Comments Medication Refill Encounter Details Date Type Department Care Team (Late st Contact Info) Description 07/06/2023 [facility] [address] [place] [address] Gómez Chen DO [address] [facility] [place] [address] Lumbar radiculopathy Allergies Active Allergy Reactions Criticality Noted Date Comments Bee Stings Edema face/lips/tongue High 10/19/2008 documented as of this encounter (statuses as of 07/06/2023) Medications Medication Sig Dispensed Refills Start Date [...] mg by mouth in the morning. Active fluticasone (FLONASE) 50 MCG/ACT nasal sprayIndications:Dizzine ss Administer 2 Sprays into each nostril daily. 1 Bottle 5 0 Active Additional Information Patient taking differently:2 [place] Each NostrilHS, Indications: AT BEDTIME, Informant: Patient, Reported on 03/18/2023 hydrocortisone 2.5 % creamIndications:Seborrh eic dermatitis Apply to rash in the eyebrow and eyelids 2-3 x's per week. 20 g 0 Active Additional Information Patient not taking.Informant: Patient, Reported on 04/02/2023 ketoconazole 2 % shampooIndications:Sebor rheic dermatitis Apply to scaling patches in the eyebrows 2-3 x's per week and wash off. 120 mL 2 0 Active Turmeric 450 MG Oral Capsule Take 2 Capsules by mouth in the morning. Active EPINEPHrine 0.3 MG/0.3ML Injection Solution Auto-injector (Autoinjector) Inject 0.3 mg into a large muscle as needed for Allergies or Other (sting). Into thigh . 1 Each 2 Active Escitalopram Oxalate 20 MG Oral Tablet (Lexapro)Indications:PTS D (post-traumatic stress disorder),Moderate episode of recurrent major depressive disorder (HCC) Take 1 Tablet by mouth in the morning. 30 Tablet 11 3 Active Doxazosin Mesylate 4 MG Oral Tablet (Cardura)Indications:PTS D (post-traumatic stress disorder),Moderate episode of recurrent major depressive disorder (HCC) TAKE 1 TABLET BY MOUTH AT BEDTIME. 90 Tablet 3 3 Active Escitalopram Oxalate 10 MG Oral Tablet (Lexapro) Take 1 Tablet by mouth in the morning. 30 Tablet 5 3 Active Cetirizine HCl 10 MG Oral Tablet (ZyrTEC) Take 1 Tablet by mouth in the morning. Active SUMAtriptan Succinate 50 MG Oral Tablet (Imitrex)Indications:Chr onic daily headache Take 2 tablets at onset of migraine and one tablet every 2 hours as needed, not more than 5 tablets in 24 hours 12 Tablet 5 4 Active Omeprazole 20 MG Oral Capsule Delayed Release (PriLOSEC) TAKE 1 CAPSULE BY MOUTH IN THE MORNING. 90 Capsule 1 4 Active Atorvastatin Calcium 40 MG Oral Tablet (Lipitor)Indications:Pur e hypercholesterolemia Take 1 Tablet by mouth every afternoon. 90 Tablet 3 4 Active amLODIPine Besylate 5 MG Oral Tablet (Norvasc)Indications:HTN , goal below 140/90 TAKE ONE TABLET BY MOUTH IN THE MORNING 30 Tablet 11 4 Active levETIRAcetam 500 MG Oral Tablet (Keppra) Take 1 Tablet by mouth in the morning and 1 Tablet before bedtime. 60 Tablet 5 4 Active Gabapentin 300 MG Oral Capsule (Neurontin)Indications:L umbar radiculopathy TAKE 1 CAPSULE BY MOUTH IN THE MORNING AND 1 CAPSULE AT NOON AND 1 CAPSULE BEFORE BEDTIME. 90 Capsule 5 4 025 Active Gabapentin 300 MG Oral Capsule (Neurontin)Indications:L umbar radiculopathy TAKE 1 CAPSULE BY MOUTH IN THE MORNING AND 1 CAPSULE AT NOON AND 1 CAPSULE BEFORE BEDTIME. 90 Capsule 5 3 024 Discontin ued(Refil l) documented as of this encounter (statuses as of 07/06/2023) Active Problems Problem Noted Date Diagnosed Date [...] as of this encounter (statuses as of 07/06/2023) Resolved Problems Problem Noted Date Diagnosed Date Resolved Date Right sided weakness 03/17/2023 024 Hypokalemia 03/17/2023 03/18/2023 Numbness and tingling in left hand 03/13/2023 03/18/2023 Intractable migraine with au ra without status migrainosus 03/13/2023 03/18/2023 documented as of this encounter (statuses as of 07/06/2023) Immunizations Name Administration Dates Next Due COVID-19 mRNA, LNP-s, No Pre serve, 2-Dose Series (Pfizer) 11/14/2020,10/24/2020 Seasonal Influenza, PF, 6 M & above, IM , (FluLaval or Fluzone) 01/20/2023,12/16/2021,04/09/2020,2017 Seasonal Influenza, Quadriva lent, No Preserve, IM 10/26/2018 Seasonal Influenza, Split, I IV3, With Preserve, Inj 12/12/2016 TD, Preservative Free 09/11/2019 TDAP (age 11 and older)(Adacel) 07/23/2009 Zoster Vaccine Recombinant (Shingrix) 12/20/2017 ,10/11/2017 [...] money to get more. Never true 03/19/2023 Sex and Gender Information Value Date Recorded Sex Assigned at Male 05/26/2019 1:32 PM EDT Gender Identity Male 05/26/2019 1:32 PM EDT Sexual Orientation Straight 03/19/2023 10 :48 AM EST Job Start Date Occupation Industry Not on file Not on file Not on file documented as of this encounter Miscellaneous Notes * Telephone Encounter - Gómez Chen DO - 07/06/2023 3:58 PM EDTSigned Prescriptions: Disp Refills Gabapentin 300 MG Oral Capsule (Neurontin) 90 Cap*5 Sig: TAKE 1 CAPSULE BY MOUTH IN THE MORNING AND 1 CAPSULE AT NOON AND 1 CAPSULE BEFORE BEDTIME. Authorizing Provider: GÓMEZ CHEN * Telephone Encounter - Funmilayo Driver MED ASSIST - 07/06/2023 2:40 PM EDT Pending Prescriptions: Disp Refills Gabapentin 300 MG Oral Capsule (Neurontin) 90 Cap*5 Sig: TAKE 1 CAPSULE BY MOUTH IN THE MORNING AND 1 CAPSULE AT NOON AND 1 CAPSULE BEFORE BEDTIME. * Telephone Encounter - Funmilayo Driver MED ASSIST - 07/06/2023 2:40 PM EDT Did you pend patient's preferred pharmacy and medication before forwarding?yes Pharmacy: [facility] Pending Prescriptions: Disp Refills Gabapentin 300 MG Oral Capsule (Neurontin)90 Cap*5 Sig: TAKE 1 CAPSULE BY MOUTH IN THE MORNING AND 1 CAPSULE AT NOON AND 1 CAPSULE BEFORE BEDTIME. Last Visit: 03/29/2023 (in office), 04/14/2022 (telemedicine) Next Visit: 09/28/2023 If no future appointments scheduled, and last appointment is greater than a year ago, please schedule patient for a follow-up appointment Last date the medication was ordered: 08/28/2022 Is this request for a controlled substance?No Urine Drug Screen:No results found for this or any previous visit. Patient Phone Numbers Labs: Lab Results Component Value Date/Time CREAT 0.8 03/29/2023 02:28 PM CREAT 0.9 11/21/2018 11:56 AM POTASSIUM 4.1 03/29/2023 02:28 PM POTASSIUM 4.3 11/21/2018 11:56 AM LDLCALC 117 03/17/2023 10:27 AM LDLCALC 127 01/16/2019 09:19 AM LDLDIRECT NOT APPLICABLE 01/16/2019 09:19 AM ALT 25 03/18/2023 05:25 AM ALT 15 11/21/2018 11:56 AM HGBA1C 5.6 03/17/2023 10:27 AM * Telephone Encounter - Danika Onofre - 07/06/2023 2:33 PM EDTPending Prescriptions: Disp Refills Gabapentin 300 MG Oral Capsule (Neurontin) 90 Cap*5 Sig: TAKE 1CAPSULE BY MOUTH IN THE MORNING AND 1 CAPSULE AT NOON AND 1 CAPSULE BEFORE BEDTIME. documented in this encounter Plan of Treatment Upcoming Encounters Date Type Department Care Team (Late st Contact Info) Description 09/28/2023 1:40 PM EDT Office Visit Family Practice [facility] [place] [address] [place] [address] [address] Gómez Chen, [address] [facility] [place] [address] 11/15/2023 10:00 AM EDT Office Visit Neurology [facility] [place] [address] [place] [address] [address] Shirin Pisano MD [address] [place] [address] [place] [address] Scheduled Procedures Name Priority Associated Diagnoses Date/Ti me COLONOSCOPY FLEXIBLE PROXIMAL DIAGNOSTIC Recall History of colon polyps Health Maintenance Due Date Last Done Comments Hepatitis C Screening 06/05/1983 Hepatitis B (1 of 3 - 19+ 3-dose series) 1984 Cologuard 2010 Fecal Occult Blood Test 2010 Sigmoidoscopy 2010 COVID-19 Vaccine ( season) 2022 11/14/2020, 10/24/2020 GFR 03/29/2024 03/29/2023, 02/2023, 03/17/2023, Additional history exists Albumin/Creatinine Ratio 04/17/2025 04/17/2022 Diabetes Screening 03/29/2026 03/29/2023, 0 03/18/2023, 03/17/2023, Additional history exists Colonoscopy 09/25/2027 09/24/2022, 09/15, 04/16/2017, Additional history exists Colorectal Cancer Screening 09/25/2027 Lipid Panel 03/17/2028 03/17/2023, 04/2022, 01/16/2019, Additional history exists DTaP,Tdap,and Td Vaccines (3 - Td or Tdap) 09/10/2029 09/11/2019, 07/23/2009 Zoster Vaccines Completed 12/20/2017, 10/11/2017 RETIRED - COLONOSCOPY-EVERY 5 YRS AGES 18-100 Discontinued 09/24/2022, 09/24/2022, 04/16/2017, Additional history exists Influenza Vaccine (FLU shot) Completed 01/20/2023, 12/16/2021, 04/09/2020, Additional history exists GARDASIL-HPV IMMUNIZATION SERIES Aged Out No longer eligible based on [...] this encounter Medical Devices Implanted Type Area Captain Cannery Tender Device Identifier Shelf Expiration Date Model / Serial / Lot Hemostatic Clip Res 235cm - [id number] Implanted:Qty: 2 on 09/24/2022 by Irma Swenson DO at END[facility]COPY [facility] Colon [employer] : ENDOSCOPY 04/16/2025 [id number] / / documented as of this encounter Visit Diagnoses Diagnosis Lumbar radiculopathy Thoracic or lumbosacral neuritis or radiculitis, unspecified documented in this encounter Advance Directives * [...] the patient have Health Care Power of Business Leader? No Care Teams Mangle Press Catcher Relationship Specialty Start Date End Date Gómez Chen DO [address] [place] [address] PCP - General Family Medicine 12/15/16 documented as of this encounter
--- OUTSIDE RECORDS SUMMARY | 2023-11-07 13:55 | External Medical Summary | Summary of Care ---
Author Name Unknown Organization [facility] Address [address] [place] [address] Phone [phone] Care Team Providers Care Intellectual Property Manager Name Role Phone Ancelmo Roche DO Primary Care Provider Reason for Visit * Reason Comments NEW PATIENT * Evaluate & Treat - Unlimited Visits (Within 30 days (routine)) - Authorized Specialty Diagnoses / Procedures Referred By Contnica t Referred To Contact Urology Diagnoses Gross hematuria Ancelmo Roche, DO [address] [place], [place] [address] Referral ID Status Reason Start Date Expiration Date Visits Requested Visits Authorized [id number] Authorized Specialty Services Required 10/08/[phone] Encounter Details Date Type Department Care Team (Late st Contact Info) Description 11/03/2023 1:30 PM EDT Office Visit Urology [facility] [address] [place] [address] [address] Nithya Carter PA-C [address] [place] [address] [address] Hematuria, gross*; Dysuria; BPH with obstruction/lower urinary tract symptoms; Retention of urine; Hematospermia Allergies Active Allergy Reactions Criticality Noted Date Comments Bee Stings Edema face/lips/tongue High 10/19/2008 documented as of this encounter (statuses as of 11/03/2023) Medications Medication Sig Dispensed Refills Start Date [...] Active SUMAtriptan Succinate 50 MG Oral Tablet (Imitrex)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 Take 2 tablets at [...] as of this encounter (statuses as of 11/03/2023) Active Problems Problem Noted Date Diagnosed Date [...] as of this encounter (statuses as of 11/03/2023) Resolved Problems Problem Noted Date Diagnosed Date Resolved Date Right sided weakness 03/17/2023 024 Hypokalemia 03/17/2023 03/18/2023 Numbness and tingling in left hand 03/13/2023 03/18/2023 Intractable migraine with au ra without status migrainosus 03/13/2023 03/18/2023 documented as of this encounter (statuses as of 11/03/2023) Immunizations Name Administration Dates Next Due COVID-19 mRNA, LNP-s, No Pre serve, 2-Dose Series ([employer]) 11/14/2020,10/24/2020 Seasonal Influenza, PF, 6 M & [...] on file documented as of this encounter Nursing Notes * Lynda Martinez [...] 11/15/2023 10:00 AM EDT Office Visit Neurology [facility] [address] [place] [address] Shirin Pisano MD [address] [place] [address] 12/31/2023 2:00 PM EST Office Visit Urology Fran Lara [address] [place] [address] Jason Tinoco MD [address] [place] [address] [address] 04/12/2024 3:20 PM EST Office Visit Family Practice [facility] [address] [place] [address] Ancelmo Roche DO 200 [facility] [place] [address] Scheduled Orders Name Type Priority Associated Diagnoses [...] Cancer Screening 09/25/2027 Lipid Panel 03/17/2028 03/17/2023, 03/04/2022, 01/16/2019, Additional history exists DTap/Tdap Vaccines (3 [...] this encounter Medical Devices Implanted Type Area Director Revenue Device Identifier Shelf Expiration Date Model / Serial / Lot Hemostatic Clip Res 235cm - [id number] Implanted:Qty: 2 on 09/24/2022 by Irma Swenson DO at [facility]COPY [facility] Colon [facility] : ENDOSCOPY 04/16/2025 [id number] / / documented as of this encounter [...] the patient have Health Care Power of Ski Binding Fitter And Repairer? No Care Teams Intellectual Property Manager Relationship Specialty Start Date End Date Ancelmo Roche DO [address] [place] [address] PCP - General Family Medicine 12/15/16 documented as of this encounter
--- OUTSIDE RECORDS SUMMARY | 2023-11-07 13:55 | External Medical Summary ---
Author Name Unknown Address Unknown Organization [id number]:[facility] [place] [address] [place] [address] Laboratory Report Ordering Provider Test Date Status GUSTAVO MAGAÑA 10/08/2023 15:51:48 Final Observation Date Value Abnormality Reference (Units ) Status Creatinine 10/08/2023 15:51:48 0.9 0.6-1.2 (mg/dL) Final Glomerular filtration rate/1.73 sq M.predicted [Volume Rate/Area] in Serum, Plasma or Blood by Creatinine-based formula (CKD-EPI) 10/08/2023 15:51:48 >90 >=60 (mL/min) Final eGFR is calculated based on the CKD-EPI 2020 equation. Performing Location [facility] [place] [address] [place] [address]
--- OUTSIDE RECORDS SUMMARY | 2023-11-07 13:55 | External Medical Summary ---
Author Name Unknown Address Unknown Organization [id number]:[facility] [place] [address] [place] [address] Laboratory Report Ordering Provider Test Date Status NANCY NULL 10/08/2023 15:42:20 Final Observation Date Value Abnormality Reference (Units ) Status MYCODE SPECIMEN-SST 10/08/2023 15:42:20 Freezing of extracted DNA, whole blood and/or serum. Final Performing Location [facility] [place] [address] [place] [address]
--- OUTSIDE RECORDS SUMMARY | 2023-11-07 13:55 | External Medical Summary | Summary of Care ---
Author Name Unknown Organization [facility] Address [address] [place] [address] Phone [phone] Care Team Providers Care Warehouse Logistics Coordinator Name Role Phone Ancelmo Roche DO Primary Care Provider [phone] Reason for Visit * Reason Comments Outpatient Testing Encounter Details Date Type Department Care Team (Late st Contact Info) Description 10/08/2023 3:40 PM EDT Laboratory Laboratory [facility] [place] [address] [place] [id number] [place] [facility] [address] [place] [address] [employer] Other*[id number]; Gross hematuria Allergies Active Allergy Reactions Criticality Noted Date Comments Bee Stings Edema face/lips/tongue High 10/19/2008 documented as of this encounter (statuses as of 10/08/2023) Medications Medication Sig Dispensed Refills Start Date [...] Active SUMAtriptan Succinate 50 MG Oral Tablet (Imitrex)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 16 g 5 4 Active documented as of this encounter (statuses as of 10/08/2023) Active Problems Problem Noted Date Diagnosed Date [...] as of this encounter (statuses as of 10/08/2023) Resolved Problems Problem Noted Date Diagnosed Date Resolved Date Right sided weakness 03/17/2023 024 Hypokalemia 03/17/2023 03/18/2023 Numbness and tingling in left hand 03/13/2023 03/18/2023 Intractable migraine with au ra without status migrainosus 03/13/2023 03/18/2023 documented as of this encounter (statuses as of 10/08/2023) Immunizations Name Administration Dates Next Due COVID-19 mRNA, LNP-s, No Pre serve, 2-Dose Series ([employer]) 11/14/2020,10/24/2020 Seasonal Influenza, PF, 6 M & above, IM , (FluLaval or Fluzone) 01/20/2023,12/16/2021,04/09/2020,2017 Seasonal Influenza, Quadriva lent, No Preserve, IM 10/26/2018 Seasonal Influenza, Split, I IV3, With Preserve, Inj 12/12/2016 TD, Preservative Free 09/11/2019 TDAP, Age [...] on file documented as of this encounter Plan of Treatment Upcoming Encounters Date Type Department Care Team (Late st Contact Info) Description 10/21/2023 7:45 AM EDT Imaging Radiology [facility] [place] [address] [place] [address] 11/15/2023 10:00 AM EDT Office Visit Neurology [facility] [address] [place] [address] Shirin Pisano MD [address] [place] [address] 04/12/2024 3:20 PM EST Office Visit Family Practice [facility] [address] [place] [address] Ancelmo Roche DO [address] [facility] [place] [address] Pending Results Name Type Priority Associated Diagnoses Date /Time MYCODE SUBSEQUENT ADULT Lab Routine [employer] Research Other*[id number] 10/08/2023 3:42 PM EDT CREATININE Lab Routine Gross hematuria 10/08/2023 3:51 PM EDT PSA Lab Routine Gross hematuria 10/08/2023 3:42 PM EDT URINALYSIS, REFLEX TO MICROSCOPIC Lab Routine Gross hematuria 10/08/2023 3:43 PM EDT MYCODE SST1 Lab Routine [employer] Other*[id number] 10/08/2023 3:42 PM EDT MYCODE SST2 Lab Routine [employer] Other*[id number] 10/08/2023 3:42 PM EDT Scheduled Procedures Name Priority Associated Diagnoses Date/Ti me COLONOSCOPY FLEXIBLE PROXIMAL DIAGNOSTIC Recall History of colon polyps Health Maintenance Due Date Last Done Comments Hepatitis C Screening 06/05/1983 Hepatitis B Vaccine (1 of 3 - 19+ 3-dose series) 1984 Cologuard 2010 Fecal Occult Blood Test 2010 Sigmoidoscopy 2010 Depression Monitoring 05/25/2020 05/26/2019 COVID-19 Vaccine (3 - 2022-24 season) 2022 11/14/2020, 10/24/2020 Influenza Vaccine (FLU shot) (#1) 2023 01/20/2023, 12/16/2021, 04/09/2020, Additional history exists GFR 03/29/2024 03/29/2023, 02/2023, 03/17/2023, Additional history [...] this encounter Medical Devices Implanted Type Area Aviation Project Manager Device Identifier Shelf Expiration Date Model / Serial / Lot Hemostatic Clip Res 235cm - [id number] Implanted:Qty: 2 on 09/24/2022 by Irma Swenson DO at ENDOSCOPY [facility] Colon [employer] : ENDOSCOPY 04/16/2025 [id number] / / documented as of this encounter Visit Diagnoses Diagnosis [employer] Other*[id number] Gross hematuria documented in this encounter Advance Directives * [...] the patient have Health Care Power of Stenographic Court Reporter? No Care Teams Warehouse Logistics Coordinator Relationship Specialty Start Date End Date Ancelmo Roche DO [address] [place] [address] PCP - General Family Medicine 12/15/16 documented as of this encounter
--- OUTSIDE RECORDS SUMMARY | 2023-11-07 13:55 | External Medical Summary ---
Author Name Unknown Address Unknown Organization K01:[facility] [place] [address] [facility] [address] Laboratory Report Ordering Provider Test Date Status FIONA CORNEJO 11/05/2023 10:45:27 Final Microscopic results may be i naccurate due to inadequate urine volume.
Microscopic performed on uncentrifuged specimen.

null Observation Date Value Abnormality Reference (Units ) Status Color of Urine by Auto 11/05/2023 10:45:27 Light Yellow Light Yellow, Yellow, Dark Yellow Final Clarity, Urine 11/05/2023 10:45:27 Clear Clear Final Glucose [Mass/volume] in Urine by Automated test strip 11/05/2023 10:45:27 Negative Negative (mg/dL) Final Bilirubin.total [Presence] in Urine by Automated test strip 11/05/2023 10:45:27 Negative Negative Final Ketones [Mass/volume] in Urine by Automated test strip 11/05/2023 10:45:27 Negative Negative (mg/dL) Final Specific gravity, Urine 11/05/2023 10:45:27 1.004 1.003-1.030 Final Hemoglobin [Presence] in Urine by Automated test strip 11/05/2023 10:45:27 Negative Negative Final pH, Urine 11/05/2023 10:45:27 6.0 5.0-7.5 (Units) Final Protein [Mass/volume] in Urine by Automated test strip 11/05/2023 10:45:27 Negative Negative (mg/dL) Final Urobilinogen [Mass/volume] in Urine by Automated test strip 11/05/2023 10:45:27 0.2 0.2, 1.0 (mg/dL) Final Nitrite [Presence] in Urine by Automated test strip 11/05/2023 10:45:27 Negative Negative Final Leukocyte esterase [Presence] in Urine by Automated test strip 11/05/2023 10:45:27 Negative Negative Final RBC, Urine 11/05/2023 10:45:27 0-2 0-2 (/HPF) Final WBC, Urine 11/05/2023 10:45:27 0-2 0-2 (/HPF) Final Bacteria [#/area] in Urine sediment by Microscopy high power field 11/05/2023 10:45:27 0-25 0-25 (/HPF) Final Performing Location [facility] [place] [facility] [address] [facility] [address]
--- OUTSIDE RECORDS SUMMARY | 2023-11-07 13:55 | External Medical Summary | Summary of Care ---
Author Name Unknown Organization [facility] Address [address] [place] [address] Phone [phone] Care Team Providers Care Scow Hand Name Role Phone Kaley Ancelmo Milton GRIGSBY Primary Care Provider [phone] Reason for Visit * Reason Comments EEG Encounter Details Date Type Department Care Team (Late st Contact Info) Description 04/27/2023 11:45 AM EDT NeuroDiagnostic Study Neurophysiology, [facility] [address] [place], [place] [id number] [facility], Neurophys Tech [address] [place] [id number] Allergies Active Allergy Reactions Criticality Noted Date Comments Bee Stings Edema face/lips/tongue High 10/19/2008 documented as of this encounter (statuses as of 05/19/2023) Medications Medication Sig Dispensed Refills Start Date End Date Status GLUCOSAMINE CHONDROITIN COMPLX 500-400 MG PO TABS Take 1 Capsule by mouth in the morning. 0 Active Aspirin 81 MG Oral Tablet Delayed Release Take 1 Tablet by mouth in the morning. 100 Tab 5 0 Active CRANBERRY 500 MG PO CAPS Take 1 Capsule by mouth in the morning. 0 2 Active Ginkgo Biloba 40 MG CAPS Take 40 mg by mouth in the morning. 0 Active fluticasone (FLONASE) 50 MCG/ACT nasal sprayIndications:Dizzines s Administer 2 Sprays into each nostril daily. 1 Bottle 5 0 Active Additional Information Patient taking differently:2 [place] Each NostrilHS, Indications: AT BEDTIME, Informant: Patient, Reported on 03/18/2023 hydrocortisone 2.5 % creamIndications:Seborrhe ic dermatitis Apply to rash in the eyebrow and eyelids 2-3 x's per week. 20 g 0 0 Active Additional Information Patient not taking.Informant: Patient, Reported on 04/02/2023 ketoconazole 2 % shampooIndications:Seborr heic dermatitis Apply to scaling patches in the eyebrows 2-3 x's per week and wash off. 120 mL 2 0 Active Turmeric 450 MG Oral Capsule Take 2 Capsules by mouth in the morning. 0 Active EPINEPHrine 0.3 MG/0.3ML Injection Solution Auto-injector (Autoinjector) Inject 0.3 mg into a large muscle as needed for Allergies or Other (sting). Into thigh . 1 Each 0 2 Active Escitalopram Oxalate 20 MG Oral Tablet (Lexapro)Indications:PTSD (post-traumatic stress disorder),Moderate episode of recurrent major depressive disorder (HCC) Take 1 Tablet by mouth in the morning. 30 Tablet 11 3 Active Gabapentin 300 MG Oral Capsule (Neurontin)Indications:Aminah mbar radiculopathy TAKE 1 CAPSULE BY MOUTH IN THE MORNING AND 1 CAPSULE AT NOON AND 1 CAPSULE BEFORE BEDTIME. 90 Capsule 5 3 08/28/19 24 Active Doxazosin Mesylate 4 MG Oral Tablet [...] 1 Tablet by mouth in the morning. 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 90 Tablet 3 4 Active documented as of this encounter (statuses as of 05/19/2023) Active Problems Problem Noted Date Diagnosed Date [...] as of this encounter (statuses as of 05/19/2023) Resolved Problems Problem Noted Date Diagnosed Date Resolved Date Right sided weakness 03/17/2023 024 Hypokalemia 03/17/2023 03/18/2023 Numbness and tingling in left hand 03/13/2023 03/18/2023 Intractable migraine with au ra without status migrainosus 03/13/2023 03/18/2023 documented as of this encounter (statuses as of 05/19/2023) Immunizations Name Administration Dates Next Due COVID-19 mRNA, LNP-s, No Pre serve, 2-Dose Series ([employer]) 11/14/2020,10/24/2020 Seasonal Influenza, PF, 6 M & [...] 1:40 PM EDT Office Visit Family Practice [facility] [address] [place] [address] [address] Ancelmo Roche DO [address] [place] [address] 11/15/2023 10:00 AM EDT Office Visit Neurology [facility] [place] [address] 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) History of TIA (transient ischemic attack) Ordered: 04/02/2023 Scheduled Procedures Name Priority Associated Diagnoses Date/Ti me COLONOSCOPY FLEXIBLE PROXIMAL DIAGNOSTIC Recall History of colon polyps Health Maintenance Due Date Last Done Comments Hepatitis C Screening 06/05/1983 Hepatitis B (1 of 3 - 19+ 3-dose series) 1984 Depression Screening 05/25/2020 05/26/2019 COVID-19 Vaccine (3 24 season) 2022 11/14/2020, 10/24/2020 GFR 03/29/2024 03/29/2023, 02/02/2023, 03/17/2023, Additional history exists Albumin/Creatinine Ratio 04/17/2025 04/17/2022 Diabetes Screening 03/29/2026 03/29/2023, 0 03/18/2023, 03/17/2023, Additional history exists COLONOSCOPY-EVERY 5 YRS AGES 18-100 09/25/2027 09/24/2022, 09/24/2022, 04/16/2017, Additional history exists Lipid Panel 03/17/2028 03/17/2023, 0304/2022, 01/16/2019, Additional history exists DTaP,Tdap,and Td Vaccines (3 - Td or Tdap) 09/10/2029 09/11/2019, 07/23/2009 Zoster Vaccines Completed 12/20/2017, 10/11/2017 Influenza Vaccine (FLU shot) Completed 07/2022, 12/16/2021, 04/09/2020, Additional history exists GARDASIL-HPV IMMUNIZATION [...] this encounter Medical Devices Implanted Type Area Php Architect Device Identifier Shelf Expiration Date Model / Serial / Lot Hemostatic Clip Res 235cm - [id number] Implanted:Qty: 2 on 09/24/2022 by Irma Swenson DO at ENDOSCOPY [facility] Colon [facility] : ENDOSCOPY 04/16/2025 [id number] / / documented as of this encounter Visit Diagnoses Diagnosis New onset seizure with abnormal neurological exam 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 Question Answer Comments Discussion of Advance Directives occurred with: Not Discussed due to patient's condition Does the patient have a Living Will? No Does the patient have Health Care Power of Fire Sprinkler Inspector? No Care Teams Scow Hand Relationship Specialty Start Date End Date Ancelmo Roche DO [address] [place] [address] PCP - General Family Medicine 12/15/16 documented as of this encounter
--- OUTSIDE RECORDS SUMMARY | 2023-11-07 13:55 | External Medical Summary ---
Author Name Unknown Address Unknown Organization [id number]:LABORATORY [facility] - [address] [facility] [address] Laboratory Report Ordering Provider Test Date Status GUSTAVO MAGAÑA 10/08/2023 15:43:12 Final Observation Date Value Abnormality Reference (Units ) Status Color of Urine by Auto 10/08/2023 15:43:12 Light Yellow Colorless, Light Yellow, Yellow, Dark Yellow Final Clarity, Urine 10/08/2023 15:43:12 Clear Clear Final Glucose [Mass/volume] in Urine by Automated test strip 10/08/2023 15:43:12 Negative Negative (mg/dL) Final Bilirubin.total [Presence] in Urine by Automated test strip 10/08/2023 15:43:12 Negative Negative Final Ketones [Mass/volume] in Urine by Automated test strip 10/08/2023 15:43:12 Negative Negative (mg/dL) Final Specific gravity, Urine 10/08/2023 15:43:12 1.009 1.003-1.030 Final Hemoglobin [Presence] in Urine by Automated test strip 10/08/2023 15:43:12 Negative Negative Final pH, Urine 10/08/2023 15:43:12 6.0 5.0-7.5 (Units) Final Protein [Mass/volume] in Urine by Automated test strip 10/08/2023 15:43:12 Negative Negative (mg/dL) Final Urobilinogen [Mass/volume] in Urine by Automated test strip 10/08/2023 15:43:12 Normal Normal (mg/dL) Final Nitrite [Presence] in Urine by Automated test strip 10/08/2023 15:43:12 Negative Negative Final Leukocyte esterase [Presence] in Urine by Automated test strip 10/08/2023 15:43:12 Negative Negative Final Annotation Comment 10/08/2023 15:43:12 Final Screen negative - Microscopi c not performed. Performing Location LABORATORY [facility] - [address] [place] [address]
--- OUTSIDE RECORDS SUMMARY | 2023-11-07 13:55 | External Medical Summary | Summary of Care ---
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 (Household - for ages [...] 11/15/2023 10:00 AM EDT Office Visit Neurology [facility] [address] [facility] [place] [address] Shirin Pisano MD [address] [facility] [place] [address] 12/31/2023 2:00 PM EST Office Visit Urology [facility] [address] [address] Jsaon Tinoco MD [address] [place] [address] 04/12/2024 3:20 PM EST Office Visit Family Practice [facility] [address] [facility] [place] [address] Ancelmo Roche DO [address] [facility] [place] [address] Scheduled Procedures Name Priority Associated Diagnoses Date/Ti [...] 03/17/2028 03/17/2023, 04/2022, 01/16/2019, Additional history exists DTap/Tdap Vaccines (3 [...] this encounter Medical Devices Implanted Type Area Mat Roller Device Identifier Shelf Expiration Date Model / Serial / Lot Hemostatic Clip Res 235cm - [id number] Implanted:Qty: 2 on 09/24/2022 by Irma Swenson DO at ENDOSCOPY [facility] Colon [employer] : ENDOSCOPY 04/16/2025 [id number] / / documented as of this encounter Advance Directives * Full Code [...] the patient have Health Care Power of Tilting Saw Operator? No Care Teams Heating And Ventilating Worker Relationship Specialty Start Date End Date Ancelmo Roche DO [address] [place] [address] PCP - General Family Medicine 12/15/16 documented as of this encounter
--- OUTSIDE RECORDS SUMMARY | 2023-11-07 13:55 | External Medical Summary | Summary of Care ---
Author Name Unknown Organization [facility] Address [address] [place] [address] Phone [phone] Care Team Providers Care Brusher Name Role Phone Ancelmo Roche DO Primary Care Provider [phone] Reason for Referral * Precert (Within 10 days (routine)) - Authorized Specialty Diagnoses / Procedures Referred By Contac t Referred To Contact Radiology Diagnoses Gross hematuria Procedures CT ABD/PELVIS W WO IV CONTRAST - WO ORAL CONT Ancelmo Roche DO [address] [place] [address] Referral ID Status Reason Start Date Expiration Date V isits Requested Visits Authorized [id number] Authorized Precert 10/11/2023 11/10/2023 999 999 * Evaluate & Treat - Unlimited Visits (Within 30 days (routine)) - Authorized Specialty Diagnoses / Procedures Referred By Contac t Referred To Contact Urology Diagnoses Gross hematuria Ancelmo Roche DO [address] [place] [address] Referral ID Status Reason Start Date Expiration Date Visits Requested Visits Authorized [id number] Authorized Specialty Services Required 10/08/2023 999 999 Question Answer Referral Priority Within 30 days (routine) Where should this appointment be scheduled? [facility] What is the patient being referred for? Hematuria What is Hematuria condition? Gross Reason for Visit * Reason Comments Physical-Exam Encounter Details Date Type Department Care Team (Late st Contact Info) Description 10/08/2023 3:00 PM EDT Office Visit Family Practice [facility] [place] [address] [facility] [place] [address] Ancelmo Roche DO [address] [facility] [place] [address] Routine medical exam*; Dizziness; Pure hypercholesterolemia; Gross hematuria Allergies Active Allergy Reactions Criticality Noted Date Comments Bee Stings Edema face/lips/tongue High 10/19/2008 documented as of this encounter (statuses as of 10/11/2023) Medications Medication Sig Dispensed Refills Start Date [...] Active Fluticasone Propionate 50 MCG/ACT Nasal Suspension (Flonase)Indications:Diz ziness Administer 2 Sprays into each nostril in the morning. 16 g 5 4 Active fluticasone (FLONASE) 50 MCG/ACT nasal sprayIndications:Dizzine ss Administer 2 Sprays into each nostril daily. 1 Bottle 5 0 10/08/19 24 Discontin ued(Refil l) hydrocortisone 2.5 % creamIndications:Seborrh eic dermatitis Apply to rash in the eyebrow and eyelids 2-3 x's per week. 20 g 0 10/08/19 24 Discontin ued(Medic ation List Clean Up) ketoconazole 2 % shampooIndications:Sebor rheic dermatitis Apply to scaling patches in the eyebrows 2-3 x's per week and wash off. 120 mL 2 0 10/08/19 24 Discontin ued(Medic ation List Clean Up) Escitalopram Oxalate 10 MG Oral Tablet (Lexapro) Take 1 Tablet by mouth in the morning. 30 Tablet 5 3 10/08/19 24 Discontin ued(Medic ation/Dos e Changed) documented as of this encounter (statuses as of 10/11/2023) Active Problems Problem Noted Date Diagnosed Date [...] as of this encounter (statuses as of 10/11/2023) Resolved Problems Problem Noted Date Diagnosed Date Resolved Date Right sided weakness 03/17/2023 024 Hypokalemia 03/17/2023 03/18/2023 Numbness and tingling in left hand 03/13/2023 03/18/2023 Intractable migraine with au ra without status migrainosus 03/13/2023 03/18/2023 documented as of this encounter (statuses as of 10/11/2023) Immunizations Name Administration Dates Next Due COVID-19 mRNA, LNP-s, No Pre serve, 2-Dose Series ([employer]) 11/14/2020,10/24/2020 Seasonal Influenza, PF, 6 M & [...] No 03/19/2023 Does the household have a [facility] source [facility] income? (Household - for ages [...] on file documented as of this encounter Last Filed Vital Signs Vital Sign Reading Time Taken Comments Blood Pressure 134/78 10/08/2023 3:01 PM EDT Pulse - - Temperature 37 C (98.6 F) 10/08/2023 3:01 PM EDT Respiratory Rate - - Oxygen Saturation - - Inhaled Oxygen Concentration - - Weight 95.3 kg (210 lb) 10/08/2023 3:01 PM EDT Height 172.7 cm (5' 7.99") 10/08/2023 3:01 PM ED T Body Mass Index 31.94 10/08/2023 3:01 PM EDT documented in this encounter Progress Notes * Ancelmo Roche, - 10/08/2023 3:08 PM EDT Subjective: Moose Garcia is a 58 year old male. Chief Complaint Patient presents with Physical-Exam HPI: Pt here for a physical. 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 PMHx, PSHx, SHx, FHx, Medications, and Allergies fully reviewed Getting exercise with his work. Up and down stairs, packing things up. Diet discussed. 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 Getting more protein. Thinking of more changes when son moves out. We discussed Lipitor and necessity going forwsrd. We discussed some extra walking. Wants to make more regular. Patient Active Problem List Diagnosis Chronic prostatitis Family history of diabetes mellitus Osteoarthritis, hand Neurogenic bladder Recurrent pancreatitis PTSD (post-traumatic stress disorder) Primary hypertension Other chronic pancreatitis (HCC) Moderate episode of recurrent major depressive disorder (HCC) Received intravenous tissue plasminogen activator (tPA) in emergency department New onset seizure with abnormal neurological exam without head trauma (HCC) Neuropathy Herniated lumbar intervertebral disc Current Outpatient Medications Medication Sig Dispense Refill [...] indicates: Allergen Reactions Bee Stings Edema face/lips/tongue OBJECTIVE: BP 134/78 | Temp 37 C (98.6 F) | Ht 1.727 m (5' 7.99") | Wt 95.3 kg (210 lb) | BMI 31.94 kg/m| BSA 2.14 m Estimated body mass index is 31.94 kg/m as calculated from the following: Height as of this encounter: 1.727 m (5' 7.99"). Weight as of this encounter: 95.3 kg (210 lb). BP Readings from Last 3 Encounters: 10/08/23 134/78 05/13/23 122/80 04/02/23 120/78 Wt Readings from Last 3 Encounters: 10/08/23 95.3 kg (210 lb) 05/13/23 93.7 kg (206 lb 8 oz) 04/02/23 93.8 kg (206 lb 12.8 oz) ROS: General: No change in weight, No weakness, No fatigue and No fevers, sweats, or chills Head: No significant headache and No recent significant head injury Eyes: No recent significant change in vision, No eye pain, redness, discharge, or excessive tearing, No diplopia and No h/o cataracts or glaucoma Ears: No recent change in hearing, No tinnitus or vertigo, No ear pain and No ear discharge Nose: No h/o frequent colds or sinusitis, No nasal stuffiness, No h/o hay fever and No significant epistaxis Throat/Oropharynx: No teeth or gum problems, No bleeding gums, No tongue complaints, No sore throatand No recent change in voice or hoarseness Neck: No complaint of lumps in neck, No swollen glands, No recent swelling in thyroid area and No significant pain in neck Respiratory: No cough, sputum, or hemoptysis, No wheezing, No shortness of breath and No recent change in breathing Cardiac: No chest pain, No shortness of breath, No dyspnea on exertion, No orthopnea, No paroxysmalnocturnal dyspnea, No edema, No palpitations and No syncope Gastrointestinal: No dysphagia, No significant heartburn, No significant change in appetite, No nausea, vomiting, diarrhea, or constipation, No hematemesis, No blood in stools or black tarry stools, No abdominal bloating or early satiety and No abdominal pain Urinary: blood and urine in his semen Musculoskeletal: No joint pain or stiffness, No arthritis, No backache, No muscle pains or cramps and No joint swelling Hematologic: No anemia, No easy bruising or abnormal bleeding and No history of transfusion Neurologic: No fainting or blackouts, No seizures, No paralysis or focal weakness, No numbness or tingling, No tremors and No significant problems with memory PHYSICAL EXAM: General: alert, healthy and no distress Head: Normocephalic, No masses, lesions, tenderness or abnormalities Ears: External ears normal, Canals clear, TM's Normal Nose: no mucosal erythema, no mucosal edema, no purulent discharge Oropharynx: no exudate, no erythema, lips, buccal mucosa, and tongue normal and mucous membranes are moist Neck: supple, no adenopathy, no bruits, thyroid normal size, non-tender, without nodularity Heart: regular rate & rhythm, no murmurs and no gallops Lungs: chest symmetric with normal AP diameter, no chest deformities noted, no chest wall tenderness, lungs clear to auscultation Abdomen: abdomen soft, non-tender, normal bowel sounds and no masses or organomegaly Extremities: less than 2 second capillary refill, no joint deformities, effusion, or inflammation ASSESSMENT/Plan Routine medical exam (Primary) Dizziness - Fluticasone Propionate 50 MCG/ACT Nasal Suspension (Flonase); Administer 2 Sprays into each nostril in the morning. Pure hypercholesterolemia - COMPREHENSIVE METABOLIC PANEL; Future; Expected date: 04/09/2024 - LIPID PANEL WITH DIRECT LDL IF TG IS HIGH; Future; Expected date: 04/09/2024 Gross hematuria - ADULT/PEDS UROLOGY REFERRAL OP - CT ABD/PELVIS W WO IV CONTRAST - WO ORAL CONT; Future; Expected date: 10/15/2023 - CREATININE; Future; Expected date: 10/08/2023 - PSA; Future; Expected date: 10/08/2023 - URINALYSIS, REFLEX TO MICROSCOPIC; Future; Expected date: 10/08/2023 Dental and sun care discussed along with weight. Check CT urogram and get in to urology for abnormal contents of semen. We discussed the likelihood that this would be a benign occurrence though. The above was discussed and understanding was expressed. Ancelmo Roche DO documented in this encounter Nursing Notes * Gina Taveras CMA - 10/08/2023 2:58 PM EDT Moose Garcia presents for annual physical exam. Medications & HM reviewed. He denies any concerns at this time. documented in this encounter Plan of Treatment Upcoming Encounters Date Type Department Care Team (Late st Contact Info) Description 10/21/2023 7:45 AM EDT Imaging Radiology [facility] [place] [address] [facility] [place] [address] 11/15/2023 10:00 AM EDT Office Visit Neurology [facility] [place] [address] [facility] [place] [address] Shirin Pisano MD [address] [facility] [place] [address] 04/12/2024 3:20 PM EST Office Visit Family Practice [facility] [place] [address] [facility] [place] [address] Ancelmo Roche DO [address] [facility] [place] [address] Scheduled Orders Name Type Priority Associated Diagnoses Orde r Schedule COMPREHENSIVE METABOLIC PANEL Lab Routine Pure hypercholesterolemia Expected: 04/09/2024 (Approximate), Expires: 10/07/2024 LIPID PANEL WITH DIRECT LDL IF TG IS HIGH Lab Routine Pure hypercholesterolemia Expected: 04/09/2024, Expires: 10/07/2024 CT ABD/PELVIS W WO IV CONTRAST - WO ORAL CONT Medical Imaging Routine Gross hematuria Expected: 10/15/2023, Expires: 11/07/2024 Scheduled Procedures Name Priority Associated Diagnoses Date/Ti me COLONOSCOPY FLEXIBLE PROXIMAL DIAGNOSTIC Recall History of colon polyps Scheduled Referrals Name Type Priority Associated Diagnoses Orde r Schedule ADULT/PEDS UROLOGY REFERRAL OP Referral Within 30 days (routine) Gross hematuria Ordered: 10/08/2023 Health Maintenance Due Date Last Done Comments Hepatitis C Screening 06/05/1983 Hepatitis B Vaccine (1 of 3 - 19+ 3-dose series) 1984 Cologuard 2010 Fecal Occult Blood Test 2010 Sigmoidoscopy 2010 Depression Monitoring 05/25/2020 05/26/2019 COVID-19 Vaccine (2022- season) 2022 11/14/2020, 10/24/2020 Influenza Vaccine (FLU [...] this encounter Medical Devices Implanted Type Area Housekeeping Department Worker Device Identifier Shelf Expiration Date Model / Serial / Lot Hemostatic Clip Res 235cm - [id number] Implanted:Qty: 2 on 09/24/2022 by Irma Swenson DO at ENDOSCOPY [facility] Colon [facility] : ENDOSCOPY 04/16/2025 [id number] / / documented as of this encounter Results * CREATININE (10/08/2023 3:51 PM EDT) Creatinine 0.9 0.6 - 1.2 mg/dL 10/09/2023 12:15 AM EDT [facility] Estimated Glomerular Filtration Rate >90 >=60 mL/min 10/09/2023 12:15 AM EDT [facility] Comment:eGFR is calculated b ased on the CKD-EPI 2020 equation. Blood Venous blood specimen / Unknown Venipuncture / Unknown 10/08/2023 3:51 PM EDT 10/08/2023 3:51 PM EDT [facility] [place] [facility] BLOOD ORDERABLE S Performing Organization Address City/State/[facility] Co de Phone Number LABORATORY [facility] [address] [place] [address] * URINALYSIS, REFLEX TO MICROSCOPIC (10/08/2023 3:43 PM EDT) Color, Urine Light Yellow Colorless, Light Yellow, Yellow, Dark Yellow 10/08/2023 9:54 PM EDT LAB[facility]ORY [facility] Clarity, Urine Clear Clear 10/08/2023 9:54 PM EDT LABORATORY [facility] Glucose, Urine Negative Negative mg/dL 10/08/2023 9:54 PM EDT LABORATORY [facility] Bilirubin, Urine Negative Negative 10/08/2023 9:54 PM EDT LABORATORY C Ketone, Urine Negative Negative mg/dL 10/08/2023 9:54 PM EDT LABORATORY [facility] Specific Wesley, Urine 1.009 1.003 - 1.030 10/08/2023 9:54 PM EDT LABORATORY [facility] Blood, Urine Negative Negative 10/08/2023 9:54 PM EDT LABORATORY [facility] pH, Urine 6.0 5.0 - 7.5 Units 10/08/2023 9:54 PM EDT LABORATORY C Protein, Urine Negative Negative mg/dL 10/08/2023 9:54 PM EDT LABORATORY [facility] Urobilinogen, Urine Normal Normal mg/dL 10/08/2023 9:54 PM EDT LABORATORY C Nitrite, Urine Negative Negative 10/08/2023 9:54 PM EDT LABORATORY C Esterase, Urine Negative Negative 9:54 PM EDT LABORATORY C Comment, Urine 10/08/2023 9:54 PM EDT LABORATORY C Comment:Screen negative - Mi croscopic not performed. Urine Urine specimen obtained by clean catch procedure / Unknown Non-blood Collection / Unknown 10/08/2023 3:43 PM EDT 10/08/2023 3:43 PM EDT [facility] URINE ORDERABLE S Performing Organization Address City/[facility]/ZIP Co de Phone Number LABORATORY [facility] [address] [place] [address] * PSA (10/08/2023 3:42 PM EDT) PSA 2.71 <3.10 ng/mL 10/09/2023 1:09 AM EDT LABORATORY [facility] Blood Venous blood specimen / Unknown Venipuncture / Unknown 10/08/2023 3:42 PM EDT 10/08/2023 3:42 PM EDT Ancelmo Roche DO LAB BLOOD ORDERABLE S Performing Organization Address [facility] Co de Phone Number LABORATORY [facility] [address] [place] [address] documented in this encounter Visit Diagnoses Diagnosis Routine medical exam- Primary Routine general medical examination at a health care facility Dizziness Dizziness and giddiness Pure hypercholesterolemia Gross hematuria documented in this encounter Advance [...] the patient have Health Care Power of Site Coordinator? No Care Teams Brusher Relationship Specialty Start Date End Date Ancelmo Roche DO [facility] [place] [address] PCP - General Family Medicine 12/15/16 documented as of this encounter
--- OUTSIDE RECORDS SUMMARY | 2023-11-07 13:55 | External Medical Summary | Summary of Care ---
Author Name Unknown Organization [facility] Address [address] [place] [address] Phone [phone] Care Team Providers Care Senior Cost Analyst Name Role Phone Gómez Chen DO Primary Care Provider [phone] Reason for Visit * Reason Comments Medication Refill Encounter Details Date Type Department Care Team (Late st Contact Info) Description 09/08/2023 Refill Family Practice [facility] [address] [facility] [place] [address] Gómez Chen DO [address] [place], [place] [address] Allergies Active Allergy Reactions Criticality Noted Date Comments Bee Stings Edema face/lips/tongue High 10/19/2008 documented as of this encounter (statuses as of 09/08/2023) Medications Medication Sig Dispensed Refills Start Date [...] 0 Active Additional Information Patient taking differently:2 [place] Each NostrilHS, Indications: AT BEDTIME, Informant: Patient, [...] BEDTIME. 90 Capsule 5 4 025 Active Escitalopram Oxalate 20 MG Oral Tablet (Lexapro)Indications:PTS D (post-traumatic stress disorder),Moderate episode of recurrent major depressive disorder (HCC) Take 1 Tablet by mouth in the morning. 90 Tablet 2 4 Active Omeprazole 20 MG Oral Capsule Delayed Release (PriLOSEC) TAKE 1 CAPSULE BY MOUTH IN THE MORNING. 90 Capsule 2 4 Active Omeprazole 20 MG Oral Capsule Delayed Release (PriLOSEC) TAKE 1 CAPSULE BY MOUTH IN THE MORNING. 90 Capsule 1 4 024 Discontin ued(Refil l) documented as of this encounter (statuses as of 09/08/2023) Active Problems Problem Noted Date Diagnosed Date [...] as of this encounter (statuses as of 09/08/2023) Resolved Problems Problem Noted Date Diagnosed Date Resolved Date Right sided weakness 03/17/2023 024 Hypokalemia 03/17/2023 03/18/2023 Numbness and tingling in left hand 03/13/2023 03/18/2023 Intractable migraine with au ra without status migrainosus 03/13/2023 03/18/2023 documented as of this encounter (statuses as of 09/08/2023) Immunizations Name Administration Dates Next Due COVID-19 [...] encounter Miscellaneous Notes * Telephone Encounter - Rogerio Hern[facility]dez [facility] - 09/08/2023 2:41 PM EDTSigned Prescriptions: Disp Refills Omeprazole 20 MG Oral Capsule Delayed Rele*90 Cap*2 Sig: TAKE 1 CAPSULE BY MOUTH IN THE MORNING.Authorizing Provider: GÓMEZ CHEN User: ROGERIO HERNÁNDEZ documented in this encounter Plan of Treatment Upcoming Encounters Date Type Department Care Team (Late st Contact Info) Description 10/08/2023 3:00 PM EDT Office Visit Family Practice [facility] [place] [address] [place] [address] Gómez Chen DO [address] [place] [address] [address] 11/15/2023 10:00 AM EDT Office Visit Neurology [facility] [place] [address] [place] [address] [address] Shirin Pisano MD [address] [facility] [place] [address] Scheduled Procedures Name Priority Associated Diagnoses Date/Ti me COLONOSCOPY FLEXIBLE PROXIMAL DIAGNOSTIC Recall History of colon polyps Health Maintenance Due Date Last Done Comments Hepatitis C Screening 06/05/1983 Hepatitis B Vaccine (1 of 3 - 19+ 3-dose series) 1984 Cologuard 2010 Fecal Occult Blood Test 2010 Sigmoidoscopy 2010 Depression Monitoring 05/25/2020 05/26/2019 COVID-19 Vaccine ( season) 2022 11/14/2020, 10/24/2020 Influenza Vaccine (FLU shot) (#1) 2023 01/20/2023, 12/16/2021, 04/09/2020, Additional history exists GFR 03/29/2024 03/29/2023, 0202/2023, 03/17/2023, Additional history exists Albumin/Creatinine Ratio 04/17/2025 04/17/2022 Diabetes Screening 03/29/2026 03/29/2023, 0 03/18/2023, 03/17/2023, Additional history exists Colonoscopy 09/25/2027 09/24/2022, 09/15, 04/16/2017, Additional history exists Colorectal Cancer Screening 09/25/2027 Lipid Panel 03/17/2028 03/17/2023, 03/0 04/2022, 01/16/2019, Additional history exists DTaP,Tdap,and Td Vaccines (3 - Td or Tdap) 09/10/2029 09/11/2019, 07/23/2009 Zoster Vaccines Completed 12/20/2017, 10/11/2017 RETIRED - COLONOSCOPY-EVERY 5 YRS AGES 18-100 Discontinued 09/24/2022, 09/24/2022, 04/16/2017, Additional history exists *BASELINE EKG FOR HTN Completed 03/17/2023 , 03/13/2023, 03/31/2015, Additional history exists HPV (Gardasil) Vaccine Aged [...] this encounter Medical Devices Implanted Type Area Top Lift Trimmer Device Identifier Shelf Expiration Date Model / Serial / Lot Hemostatic Clip Res 235cm - [id number] Implanted:Qty: 2 on 09/24/2022 by Irma Swenson DO at ENDOSCOPY [facility] Colon [employer] : ENDOSCOPY 04/16/2025 [id number] / / documented as of this encounter [...] the patient have Health Care Power of Assistive Technology Specialist? No Care Teams Senior Cost Analyst Relationship Specialty Start Date End Date Gómez Chen DO [address] [place] [address] PCP - General Family Medicine 12/15/16 documented as of this encounter
--- OUTSIDE RECORDS SUMMARY | 2023-11-07 13:55 | External Medical Summary ---
Author Name Unknown Address Unknown Organization [id number]:[facility] - [address] [place] [address] Laboratory Report Ordering Provider Test Date Status GUSTAVO MAGAÑA 10/08/2023 15:42:20 Final Observation Date Value Abnormality Reference (Units ) Status PSA 10/08/2023 15:42:20 2.71 <3.10 (ng/ mL) Final Performing Location [facility] - [address] [place] [address]
--- OUTSIDE RECORDS SUMMARY | 2023-11-07 13:55 | External Medical Summary | Summary of Care ---
Author Name Unknown Organization [facility] Address [address] [place] [address] Phone [phone] Care Team Providers Care Game Programmer Name Role Phone Kaley Ancelmo Milton GRIGSBY Primary Care Provider [phone] Reason for Visit * Reason Comments EEG Encounter Details Date Type Department Care Team (Late st Contact Info) Description 04/27/2023 11:45 AM EDT NeuroDiagnostic Study Neurophysiology, [facility] [address] [place], [place] [id number] [facility], Neurophys Tech [address] [place] [address] Allergies Active Allergy Reactions Criticality Noted Date [...] 0 Active Additional Information Patient taking differently:2 [place] Each NostrilHS, Indications: AT BEDTIME, Informant: Patient, [...] Active SUMAtriptan Succinate 50 MG Oral Tablet (Imitrex)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 Take 2 tablets at [...] mRNA, LNP-s, No Pre serve, 2-Dose Series ([employer]) 11/14/2020,10/24/2020 Seasonal Influenza, PF, 6 M & [...] as of this encounter Progress Notes * Tanner Ordonez REEGT - 05/09/2023 8:14 AM EDT Electroencephalogram Report Neurophysiology, [address] [address] Name: Moose Garcia Age: [age] year old Study Start Date/Time:04/27/2023; 12:38:44 Study End Date/Time: 04/30/2023; 09:46:16 Location: Ambulatory Referring Physician: Shirin Pisano MD Clinical Summary: Moose Garcia is a/an 57 year old male undergoing EEG evaluation for: Epilepsy: clinical suspicion of epilepsy Neuroactive Medications: Keppra Technical Summary: This digitally acquired electroencephalogram was performed using 21 scalp electrodes in the international 10/20 system placement, with additional scalp, precordial, and other surface electrodes used for electrical referencing and artifact detection. Activation Procedures: No activation procedures were performed for this study period. Background: Normal. Posterior dominant rhythm symmetric. Frequency 9-10 Hz Alpha Amplitude 20-70 (medium). Organization - organized with an anterior to posterior gradient. Reactivity - present and reactive to external stimuli. Variability - present with distinct states of arousal. Continuity - continuous. EKG: Normal sinus rhythm Sleep: Drowsiness was observed due to the presence of waxing and waning of the posterior reactive rhythm with eventual replacement by a mixture of Beta, Alpha, and Theta activity., Stage 2 sleep was observed due to the presence of symmetric vertex waves, sleep spindles, and K complexes. Interictal Findings: No evidence of epileptiform abnormalities or focal asymmetries Clinical and Electrographic Events: No electrographic events were captured. Clinical Events: 2023: Patient reports at 16:30 - 16:40 "Light headed, feeling of faint, blurred vision"; No EEG correlate. Summary of Findings: This is a normal 72 hour ambulatory EEG. There is no evidence of epileptiform activity or asymmetry. There were no clinical or electrographic seizures during this study. The clinical event as noted above and described as "feeling lightheaded" was non epileptic. -- I have reviewed the ambulatory EEG and agree with the findings and report as noted above. David Moreira DO documented in this encounter Plan of Treatment Upcoming Encounters Date Type Department Care Team (Late st Contact Info) Description 09/28/2023 1:40 PM EDT Office Visit Family [facility] [place] [address] [place] [address] [address] Ancelmo Roche DO [address] [place] [address] 11/15/2023 10:00 AM EDT Office Visit Neurology [place] [place] [address] [facility] [place] [address] Shirin Pisano MD [address] [place] [place] [address] Scheduled Orders Name Type Priority Associated Diagnoses [...] 1984 Depression Screening 05/25/2020 05/26/2019 COVID-19 Vaccine (2022-24 season) 2022 11/14/2020, 10/24/2020 GFR 03/29/2024 03/29/2023, 0202/2023, 03/17/2023, Additional history exists Albumin/Creatinine Ratio 04/17/2025 04/17/2022 Diabetes Screening 03/29/2026 03/29/2023, 0 03/18/2023, 03/17/2023, Additional history exists COLONOSCOPY-EVERY 5 YRS AGES 18-100 09/25/2027 09/24/2022, 09/24/2022, 04/16/2017, Additional history exists Lipid Panel 03/17/2028 03/17/2023, 03/0 04/2022, 01/16/2019, [...] this encounter Medical Devices Implanted Type Area Retail Mortgage Banker Device Identifier Shelf Expiration Date Model / Serial / Lot Hemostatic Clip Res 235cm - [id number] Implanted:Qty: 2 on 09/24/2022 by Irma Swenson DO at ENDOSCOPY [facility] Colon [facility] : ENDOSCOPY 04/16/2025 [id number] / / documented as of this encounter [...] the patient have Health Care Power of Hospital Receptionist? No Care Teams Game Programmer Relationship Specialty Start Date End Date Ancelmo Roche DO [address] [place] [address] PCP - General Family Medicine 12/15/16 documented as of this encounter
--- OUTSIDE RECORDS SUMMARY | 2023-11-07 13:55 | External Medical Summary | Summary of Care ---
Author Name Unknown Organization [facility] Address [address] [place] [address] Phone [phone] Care Team Providers Care Funeral Home Associate Name Role Phone KaleyAncelmo Milton GRISGBY Primary Care Provider Reason for Visit * Reason Onset Date Comments Outpatient Testing 05/26/2023 Sample Collec tion Reminder Encounter Details Date Type Department Care Team (Late st Contact Info) Description 05/26/2023 Telephone Medical Genetics [address], [place] [address] [place] [address] Agueda Ceja CHRA Outpatient Testing (Sample Collection Joe... 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 60 Tablet 5 4 Active documented as of this encounter (statuses as of 05/26/2023) Active Problems Problem Noted Date Diagnosed Date [...] as of this encounter (statuses as of 05/26/2023) Resolved Problems Problem Noted Date Diagnosed Date Resolved Date Right sided weakness 03/17/2023 024 Hypokalemia 03/17/2023 03/18/2023 Numbness and tingling in left hand 03/13/2023 03/18/2023 Intractable migraine with au ra without status migrainosus 03/13/2023 03/18/2023 documented as of this encounter (statuses as of 05/26/2023) Immunizations Name Administration Dates Next Due COVID-19 mRNA, LNP-s, No Pre serve, 2-Dose Series ([employer]) 11/14/2020,10/24/2020 Seasonal Influenza, PF, 6 M & [...] 1:40 PM EDT Office Visit Family Practice [place] [facility] [place] [address] [place] [address] [address] Ancelmo Roche, [address] [place] [address] [address] 11/15/2023 10:00 AM EDT Office Visit Neurology [place] [facility] [place] [address] [place] [address] [place] [address] Shirin Pisano MD [address] [place] [address] [place] [address] Scheduled Procedures Name Priority Associated Diagnoses Date/Ti me COLONOSCOPY FLEXIBLE PROXIMAL DIAGNOSTIC Recall History of colon polyps Health Maintenance Due Date Last Done Comments Hepatitis C Screening 06/05/1983 Hepatitis B (1 of 3 - 19+ 3-dose series) 1984 COVID-19 Vaccine (3 - 2022-24 season) 2022 11/14/2020, 10/24/2020 GFR 03/29/2024 03/29/2023, [...] this encounter Medical Devices Implanted Type Area Entry Level Recruiter Device Identifier Shelf Expiration Date Model / Serial / Lot Hemostatic Clip Res 235cm - [id number] Implanted:Qty: 2 on 09/24/2022 by Irma Swenson DO at ENDOSCOPY [facility] Colon [employer] : ENDOSCOPY 04/16/2025 [id number] / / documented as of this encounter Advance Directives Latest Code Status [...] the patient have Health Care Power of String Laster? No Care Teams Funeral Home Associate Relationship Specialty Start Date End Date Ancelmo Roche DO [address] [place] [address] PCP - General Family Medicine 12/15/16 documented as of this encounter
--- OUTSIDE RECORDS SUMMARY | 2023-11-07 13:55 | External Medical Summary | Summary of Care ---
Author Name Unknown Organization [facility] Address [address] [place] [address] Phone [phone] Care Team Providers Care Crisis Counselor Name Role Phone Kaley Ancelmo Milton GRIGSBY Primary Care Provider [phone] Reason for Visit * Reason Comments EEG Encounter Details Date Type Department Care Team (Late st Contact Info) Description 04/30/2023 9:45 AM EDT NeuroDiagnostic Study Neurophysiology, [facility] [address] [place], [place] [phone] [facility], Neurophys Tech [address] [place] [address] Allergies Active Allergy Reactions Criticality Noted Date [...] 0 Active Additional Information Patient taking differently:2 [place] Each NostrilHS, Indications: AT BEDTIME, Informant: Patient, [...] Active SUMAtriptan Succinate 50 MG Oral Tablet (Imitrex)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 Take 2 tablets at [...] mRNA, LNP-s, No Pre serve, 2-Dose Series ([employer]) 11/14/2020,10/24/2020 Seasonal Influenza, PF, 6 M & [...] 1:40 PM EDT Office Visit Family Practice [facility] [address] [place] [address] [address] Ancelmo Roche, [address] [place] [address] [place] [address] 11/15/2023 10:00 AM EDT Office Visit Neurology [facility] [address] [place] [address] [address] Shirin Pisano MD [address] [place] [address] [place] [address] Scheduled Procedures Name Priority Associated Diagnoses Date/Ti me COLONOSCOPY FLEXIBLE PROXIMAL DIAGNOSTIC Recall History of colon polyps Health Maintenance Due Date Last Done Comments Hepatitis C Screening 06/05/1983 Hepatitis B (1 of 3 - 19+ 3-dose series) 1984 Depression Screening 05/25/2020 05/26/2019 COVID-19 Vaccine (2022- season) 2022 11/14/2020, 10/24/2020 GFR 03/29/2024 03/29/2023, 02/0 02/2023, 03/17/2023, Additional history exists Albumin/Creatinine Ratio [...] this encounter Medical Devices Implanted Type Area Marine Firer Device Identifier Shelf Expiration Date Model / Serial / Lot Hemostatic Clip Res 235cm - [id number] Implanted:Qty: 2 on 09/24/2022 by Irma Swenson DO at ENDOSCOPY [facility] Colon [employer] [facility] : ENDOSCOPY 04/16/2025 [id number] / / documented as of this encounter Visit Diagnoses Diagnosis New onset seizure with abnormal neurological exam without head trauma (HCC) [R56.9, R29.90]- Primary documented in this encounter Advance Directives Latest [...] the patient have Health Care Power of Dinkey Driver? No Care Teams Crisis Counselor Relationship Specialty Start Date End Date Ancelmo Roche DO [address] [place] [address] PCP - General Family Medicine 12/15/16 documented as of this encounter
--- OUTSIDE RECORDS SUMMARY | 2023-11-07 13:55 | External Medical Summary ---
Author Name Unknown Address Unknown Organization K01:[facility] [place] [place] [address] [place] [address] Laboratory Report Ordering Provider Test Date Status NANCY NULL 10/08/2023 15:42:20 Final Observation Date Value Abnormality Reference (Units ) Status MYCODE SPECIMEN-SST 10/08/2023 15:42:20 Freezing of extracted DNA, whole blood and/or serum. Final Performing Location [facility] [place] [place] [address] [place] [address]
--- OUTSIDE RECORDS SUMMARY | 2023-11-07 13:55 | External Medical Summary | Summary of Care ---
Author Name Unknown Organization [facility] Address [address] [place] [address] Phone [phone] Care Team Providers Care Car Wash Supervisor Name Role Phone Ancelmo Roche DO Primary Care Provider Reason for Visit * Reason Comments NEW PATIENT * Evaluate & Treat - Unlimited Visits (Within 30 days (routine)) - Authorized Specialty Diagnoses / Procedures Referred By Contnica t Referred To Contact Urology Diagnoses Gross hematuria Ancelmo Roche, DO [address] [place], [place] [address] Referral ID Status Reason Start Date Expiration Date Visits Requested Visits Authorized [id number] Authorized Specialty Services Required 10/08/[phone] Encounter Details Date Type Department Care Team (Late st Contact Info) Description 11/03/2023 1:30 PM EDT Office Visit Urology [place] [address] [place] [address] [place] [address] Nithya Carter PA-C [address] [place] [address] Hematuria, gross*; Dysuria; BPH with obstruction/lower urinary [...] Active SUMAtriptan Succinate 50 MG Oral Tablet (Imitrex)Indications:Bill Hiker 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 Take 2 tablets at [...] mRNA, LNP-s, No Pre serve, 2-Dose Series ([employer]) 11/14/2020,10/24/2020 Seasonal Influenza, PF, 6 M & [...] 11/15/2023 10:00 AM EDT Office Visit Neurology [facility] [address] [place] [address] Shirin Pisano MD [address] [place] [address] 12/31/2023 2:00 PM EST Office Visit Urology [place] [address] [place] [address] [place] [address] Jason Tinoco MD [address] [place] [address] 04/12/2024 3:20 PM EST Office Visit Family Practice [facility] [address] [place] [address] Ancelmo Roche DO [address] [facility] [place] [address] Scheduled Orders Name Type Priority Associated Diagnoses [...] this encounter Medical Devices Implanted Type Area Teacher Adult Education Device Identifier Shelf Expiration Date Model / Serial / Lot Hemostatic Clip Res 235cm - [id number] Implanted:Qty: 2 on 09/24/2022 by Irma Swenson DO at ENDOSCOPY [facility] Colon [facility] : ENDOSCOPY 04/16/2025 [id number] / / documented as of this encounter [...] the patient have Health Care Power of Frontend Engineer? No Care Teams Car Wash Supervisor Relationship Specialty Start Date End Date Ancelmo Roche DO [address] [place] [address] PCP - General Family Medicine 12/15/16 documented as of this encounter
--- OUTSIDE RECORDS SUMMARY | 2023-11-07 13:55 | External Medical Summary | Summary of Care ---
Author Name Unknown Organization [facility] Address [address] [place] [address] Phone [phone] Care Team Providers Care Director Of Undergraduate Admissions Name Role Phone Ancelmo Roche DO Primary Care Provider [phone] Reason for Visit * Reason Comments Outpatient Testing Encounter Details Date Type Department Care Team (Late st Contact Info) Description 10/08/2023 3:40 PM EDT Laboratory Laboratory [facility] [place] [address] [place] [phone] [place] 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 Take 2 tablets at [...] mRNA, LNP-s, No Pre serve, 2-Dose Series ([employer])) 11/14/2020,10/24/2020 Seasonal Influenza, PF, 6 M & [...] Description 10/21/2023 7:45 AM EDT Imaging Radiology [facility], [place] [address] [place] [address] 11/15/2023 10:00 AM EDT Office Visit Neurology [facility] [address] [place] [address] Shirin Pisano MD [address] [place] [address] 04/12/2024 3:20 PM EST Office Visit Family Practice [facility] [address] [place] [address] Ancelmo Roche DO [address] [facility] [place] [address] Pending Results Name Type Priority Associated Diagnoses Date /Time MYCODE SUBSEQUENT ADULT Lab Routine My[employer] Other*[id number] 10/08/2023 3:42 PM EDT CREATININE Lab Routine Gross hematuria 10/08/2023 3:51 PM EDT PSA Lab Routine Gross hematuria 10/08/2023 3:42 PM EDT URINALYSIS, REFLEX TO MICROSCOPIC Lab Routine Gross hematuria 10/08/2023 3:43 PM EDT MYCODE SST1 Lab Routine [employer] Other*[id number] 10/08/2023 3:42 PM EDT MYCODE SST2 Lab Routine [employer] Other*[id number] 10/08/2023 3:42 PM EDT Scheduled Procedures Name [...] this encounter Medical Devices Implanted Type Area Backhoe Operator Device Identifier Shelf Expiration Date Model / Serial / Lot Hemostatic Clip Res 235cm - [id number] Implanted:Qty: 2 on 09/24/2022 by Irma Swenson DO at ENDOSCOPY [facility] Colon [employer] : ENDOSCOPY 04/16/2025 [id number] / / documented as of this encounter Visit Diagnoses Diagnosis [employer] Other*[id number] Gross hematuria documented in this encounter Advance [...] the patient have Health Care Power of Soft Sugar Supervisor? No Care Teams Director Of Undergraduate Admissions Relationship Specialty Start Date End Date Ancelmo Roche DO [address] [place] [address] PCP - General Family Medicine 12/15/16 documented as of this encounter
--- OUTSIDE RECORDS SUMMARY | 2023-11-07 13:55 | External Medical Summary | Summary of Care ---
Author Name Unknown Organization [facility] Address [address] [place] [facility] [place] [address] Phone [phone] Care Team Providers Care Financial Systems Analyst Name Role Phone Gómez Chen DO Primary Care Provider [phone] Reason for Visit * Reason Comments Medication Refill Encounter Details Date Type Department Care Team (Late st Contact Info) Description [facility]23 [facility] [address] [place] [address] Gómez Chen DO [address] [facility] [place] [address] PTSD (post-traumatic stress disorder); Moderate episode of recurrent major depressive disorder (HCC) Allergies Active Allergy Reactions Criticality Noted Date Comments Bee Stings Edema face/lips/tongue High 10/19/2008 documented as of this encounter (statuses as of 07/27/2023) Medications Medication Sig Dispensed Refills Start Date [...] 0 Active Additional Information Patient taking differently:2 [place] Each NostrilHS, Indications: AT BEDTIME, Informant: Patient, [...] the morning. 90 Tablet 2 4 Active Escitalopram Oxalate 20 MG Oral Tablet (Lexapro)Indications:PTS D (post-traumatic stress disorder),Moderate episode of recurrent major depressive disorder (HCC) Take 1 Tablet by mouth in the morning. 30 Tablet 11 3 024 Discontin ued(Refil l) documented as of this encounter (statuses as of 07/27/2023) Active Problems Problem Noted Date Diagnosed Date [...] as of this encounter (statuses as of 07/27/2023) Resolved Problems Problem Noted Date Diagnosed Date Resolved Date Right sided weakness 03/17/2023 024 Hypokalemia 03/17/2023 03/18/2023 Numbness and tingling in left hand 03/13/2023 03/18/2023 Intractable migraine with au ra without status migrainosus 03/13/2023 03/18/2023 documented as of this encounter (statuses as of 07/27/2023) Immunizations Name Administration Dates Next Due COVID-19 [...] encounter Miscellaneous Notes * Telephone Encounter - Joni Kumar, [facility] - 07/27/2023 4:41 PM EDTSigned Prescriptions: Disp Refills Escitalopram Oxalate 20 MG Oral Tablet (Le*90 Tab*2 Sig: Take 1 Tablet by mouth in the morning.Authorizing Provider: GÓMEZ CHEN User: JONI KUMAR documented in this encounter Plan of Treatment Upcoming Encounters Date Type Department Care Team (Late st Contact Info) Description 09/28/2023 1:40 PM EDT Office Visit Family Practice [facility] [place] [address] [facility] [place] [address] Gómez Chen, [address] [facility] [place] [address] 11/15/2023 10:00 AM EDT Office Visit Neurology [facility] [place] [address] [facility] [place] [address] Shirin Pisano MD [address] [facility] [place] [address] Scheduled Procedures Name Priority Associated Diagnoses Date/Ti [...] 03/17/2023, Additional history exists Colonoscopy 09/25/2027 09/24/2022, 08, 04/16/2017, Additional history exists Colorectal Cancer Screening [...] this encounter Medical Devices Implanted Type Area Contracts Intern Device Identifier Shelf Expiration Date Model / Serial / Lot Hemostatic Clip Res 235cm - [id number] Implanted:Qty: 2 on 09/24/2022 by Irma Swenson DO at ENDOSCOPY [facility] Colon [facility] : ENDOSCOPY 04/16/2025 [id number] / / documented as of this encounter Visit Diagnoses Diagnosis PTSD (post-traumatic stress disorder) Posttraumatic stress disorder Moderate episode of recurrent major depressive disorder (HCC) documented in this encounter Advance Directives * [...] the patient have Health Care Power of Hand I Thermal Cutter? No Care Teams Financial Systems Analyst Relationship Specialty Start Date End Date Gómez Chen DO [address] [place] [address] PCP - General Family Medicine 12/15/16 documented as of this encounter
--- OUTSIDE RECORDS SUMMARY | 2023-11-07 13:56 | External Medical Summary | Summary of Care ---
Author Name Unknown Organization [facility] Address [address] [place] [address] Phone [phone] Care Team Providers Care Him Tech Name Role Phone KaleyAncelmo Milton GRIGSBY Primary Care Provider [phone] Reason for Visit * Reason Comments Return Neuro Encounter Details Date Type Department Care Team (Late st Contact Info) Description 05/13/2023 9:20 AM EDT Office Visit Neurology [facility] [place] [address] [place] [address] Shirin Pisano MD [address] [place] [address] New onset seizure with abnormal neurological exam without head trauma (HCC)* Allergies Active Allergy Reactions Criticality Noted Date Comments Bee Stings Edema face/lips/tongue High 10/19/2008 documented as of this encounter (statuses as of 05/13/2023) Medications Medication Sig Dispensed Refills Start Date [...] 0 Active fluticasone (FLONASE) 50 MCG/ACT nasal sprayIndications:Dizzine ss Administer 2 Sprays into each nostril daily. 1 Bottle 5 0 Active Additional Information Patient taking differently:2 [place] Each NostrilHS, Indications: AT BEDTIME, Informant: Patient, [...] 3 Active Gabapentin 300 MG Oral Capsule (Neurontin)Indications:L umbar radiculopathy TAKE 1 CAPSULE BY MOUTH IN THE MORNING AND 1 CAPSULE AT NOON AND 1 CAPSULE BEFORE BEDTIME. 90 Capsule 5 3 024 Active Doxazosin Mesylate 4 MG Oral Tablet [...] before bedtime. 60 Tablet 5 4 Active levETIRAcetam 500 MG Oral Tablet (Keppra) Take 1 Tablet by mouth in the morning and 1 Tablet before bedtime. 60 Tablet 0 4 024 Discontin ued(Refil l) documented as of this encounter (statuses as of 05/13/2023) Active Problems Problem Noted Date Diagnosed Date [...] as of this encounter (statuses as of 05/13/2023) Resolved Problems Problem Noted Date Diagnosed Date Resolved Date Right sided weakness 03/17/2023 024 Hypokalemia 03/17/2023 03/18/2023 Numbness and tingling in left hand 03/13/2023 03/18/2023 Intractable migraine with au ra without status migrainosus 03/13/2023 03/18/2023 documented as of this encounter (statuses as of 05/13/2023) Immunizations Name Administration Dates Next Due COVID-19 [...] Sign Reading Time Taken Comments Blood Pressure 122/80 05/13/2023 9:13 AM EDT Pulse 96 05/13/2023 9:13 AM EDT Temperature 36.4 C (97.6 F) 05/13/2023 9:13 AM ED T Respiratory Rate 16 05/13/2023 9:13 AM EDT Oxygen Saturation 96% 05/13/2023 9:13 AM EDT Inhaled Oxygen Concentration - - Weight 93.7 kg (206 lb 8 oz) 05/13/2023 9:13 AM EDT Height - - Body Mass Index 31.4 04/02/2023 7:55 AM EST documented in this encounter Progress Notes * Shirin Pisano MD - 05/13/2023 9:55 AM EDT Images from the original note were not included. CLINIC NOTES Neurology [facility] [place] [address] [place] [address] Moose Garcia : 1965 NEUROLOGY OUTPATIENT NOTE 05/13/2023 HISTORY: The patient is referred for consultation by Dr. staci Gale, who will be receiving a copy of this note. Patient comes today in follow-up presumed seizure in the setting of possible vascular disease with negative MRI brain CTA head and neck EEG. He is remained on Keppra although ran of it recently. He has not had any recurrent events. 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 #[id number]) (Order [id number]) Exam End Date Exam End Time 05/08/2023 10:26 AM MRI BRAIN W WO CONTRAST Order: [id number] Status: Final result Visible to patient: Yes (seen) Next appt: 09/28/2023 at 01:40 PM in *Primary Care* (Ancelmo Roche, ) Dx: History of TIA (transient ischemic at... 0 Result Notes Details Reading Physician Reading Date Result Priority Alli Covington MD [phone] 05/10/2023 Narrative & Impression EXAM: BRAIN MR WITHOUT, THEN WITH CONTRAST. 05/08/2023 10:26 am. HISTORY: New seizure with postictal right sided weakness, symptoms 2 weeks ago, ongoing right facial numbness, instability/language dysfunction. MR tech notes: ?seizures. Patient had episode of unconsciousness in ER thought to be due to seizure. History of TIA. TECHNIQUE: Multiplanar brain MR sequences (both long TE and short TE) both before/after intravenous gadolinium-based contrast administration (please consult [facility] EMR for details). Total MR sequences submitted for review: 19. COMPARISON: HEAD CT WITHOUT CONTRAST dated 03/18/2023; BRAIN MR WITH/WITHOUT CONTRAST dated 03/18/2023. FINDINGS: Motion artifact. Minimal cerebral white matter T2/FLAIR hyperintense and nonenhancing punctate foci are present, which are nonspecific, and which are normal in number for stated age. Symmetric ventricular/sulcal enlargement, representing mild chronic volume loss. Retrocerebellar arachnoid cyst. Otherwise, normal brain parenchymal signal. No hemorrhage or midline shift. Neither restricted diffusion nor abnormal enhancement. Patent basal cisterns. No abnormal intra- or extra-axial fluid collections. Intracranial arterial flow voids are suboptimally evaluated due to slice selection artifact and motion artifact, but are otherwise grossly normal. Grossly unremarkable head soft tissues. Grossly normal bilateral orbits. Grossly normal cranium andskull base. Trace (< 3 mm) bilateral ethmoid air cell and bilateral maxillary sinus mucosal thickening. Included paranasal sinuses are otherwise clear. right mastoid opacification; no left mastoidair cell or bilateral middle ear opacification. IMPRESSION IMPRESSION: 1. No acute intracranial abnormality. No restricted diffusion concerning for acute CVA. No abnormalenhancement. 2. Minimal nonspecific cerebral white matter T2/FLAIR hyperintense and nonenhancing punctate foci, normal in number for stated age. 3. Mild chronic brain parenchymal volume loss. The patient continues to occasionally feel briefly vertiginous which is nonpositional. Past Medical History: Diagnosis Date Displacement of lumbar intervertebral disc without myelopathy Hypertension Mitral valve prolapse 2001 OTHER 2008 not emptying bladder comlpletely, Dr. Klein Patient Active Problem List Diagnosis Code Chronic prostatitis N41.1 Family history of diabetes mellitus Z83.3 Osteoarthritis, hand M19.049 Neurogenic bladder N31.9 Recurrent pancreatitis [id number] PTSD (post-traumatic stress disorder) F43.10 Primary hypertension I10 Other chronic pancreatitis (HCC) K86.1 Moderate episode of recurrent major depressive disorder (HCC) F33.1 Received intravenous tissue plasminogen activator (tPA) in emergency department Z92.82 New onset seizure with abnormal neurological exam without head trauma (HCC) R56.9, R29.90 Neuropathy G62.9 Herniated lumbar intervertebral disc M51.26 Past Surgical History: Procedure Laterality Date COLONOSCOPY, DIAGNOSTIC (RECTUM) 04/16/2017 adenomatous & hyperplastic polyps, diverticulosis, repeat 5 yrs/COLONOSCOPY FLEXIBLE PROXIMAL DIAGNOSTIC performed by Irma Swenson DO at ENDOSCOPY [facility] COLONOSCOPY, DIAGNOSTIC (RECTUM) 09/24/2022 multi polyps in transverse, sigmoid, moderate diverticulosis in sigmoid & descending / biopsiesbenign adenomatous polyps / 5 year recall / COLONOSCOPY FLEXIBLE PROXIMAL DIAGNOSTIC performed by Irma Swenson DO at ENDOSCOPY [facility] CYSTOSCOPY 01/06/2011 EGD, W/ENDOSCOPIC US 05/17/2015 GB sludge/ESOPHAGOGASTRODUODENOSCOPY (EGD), FLEXIBLE, TRANSORAL, ENDOSCOPIC ULTRASOUND performed byJavier Cespedes MD at ENDOSCOPY [facility] EGD, W/ENDOSCOPIC US 01/27/2017 autoimmune pancreatitis, fatty liver, mild gastritis/ESOPHAGOGASTRODUODENOSCOPY (EGD), FLEXIBLE, TRANSORAL, ENDOSCOPIC ULTRASOUND performed by Irma Swenson DO at ENDOSCOPY [facility] EGD, W/ENDOSCOPIC US 07/26/2019 multiple gastric polyps/biopsies show fundic gland polyps/ESOPHAGOGASTRODUODENOSCOPY (EGD), FLEXIBLE, TRANSORAL, ENDOSCOPIC ULTRASOUND performed by Irma Swenson DO at ENDOSCOPY [facility] INJECT DX/THER SUBSTANCE INTERLAMINAR LUMBAR/SACRAL W IMAGE GUIDE 02/19/2022 INJECTION SPINE LUMBAR OR SACRAL performed by Jas Pollard DO at [facility] LAPAROSCOPY; CHOLECYSTECTOMY N/A 05/29/2015 LAPAROSCOPIC CHOLECYSTECTOMY performed by Adeline Swenson MD at [facility] REPAIR INITIAL INGUINAL HERNIA REDUCIBLE AGE 5 OR MORE 1996 Inguianl hernia Repair, age 5+ yr REPAIR INITIAL INGUINAL HERNIA REDUCIBLE AGE 5 OR MORE 2001 Inguianl hernia Repair, age 5+ yr VASECTOMY Social History Socioeconomic History Marital status: Spouse name: Kylie Number of children: 3 Years of education: Not on file Highest education level: Not on file Occupational History 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 Employer: [employer] Tobacco Use Smoking status: Never Smokeless tobacco: Never Vaping Use Vaping Use: Never used Substance and Sexual Activity Alcohol use: Yes Comment: socially monthly Drug use: No Sexual activity: Yes Partners: Female Other Topics Concern Service Not Asked Blood Transfusions Not Asked Caffeine Concern Not Asked Occupational Exposure Not Asked Hobby Hazards Not Asked Sleep Concern Yes Comment: "does not sleep well and not enough" Stress Concern Not Asked Weight Concern Not Asked Special Diet No Back Care Not Asked Exercise Not Asked Bike Helmet Not Asked Seat Belt Yes Self-Exams Not Asked Social History Narrative Not on file Social Determinants of Health Financial Resource Strain: Not on file Food Insecurity: No Food Insecurity (03/19/2023) Hunger Vital Sign Worried About Running Out of Food in the Last Year: Never true Ran Out of Food in the Last Year: Never true Transportation Needs: Not on file Physical Activity: Not on file Stress: Not on file Social Connections: Not on file Intimate Partner Violence: Not on file Housing Stability: Not on file Family History Problem Relation Age of Onset Diabetes Mother 60 Hypertension Mother Stroke Mother Neurological Disorder Mother alzheimer Arthritis Mother RA Cancer Father 50 skin Arthritis Father 40 RA, psoriatic arthropathy Cancer Sister 48 skin Cancer Brother 48 skin Heart Disorder Brother 46 heart attack Obesity Brother Current Outpatient Medications Medication Sig Dispense Refill levETIRAcetam 500 MG Oral Tablet (Keppra) Take 1 Tablet by mouth in the morning and 1 Tablet beforebedtime. 60 Tablet 5 GLUCOSAMINE CHONDROITIN COMPLX 500-400 MG PO TABS Take 1 Capsule by mouth in the morning. Aspirin 81 MG Oral Tablet Delayed Release Take 1 Tablet by mouth in the morning. 100 Tab 5 CRANBERRY 500 MG PO CAPS Take 1 Capsule by mouth in the morning. Ginkgo Biloba 40 MG CAPS Take 40 mg by mouth in the morning. fluticasone (FLONASE) 50 MCG/ACT nasal spray Administer 2 Sprays into each nostril daily. (Patient taking differently: Administer 2 Sprays into each nostril at bedtime.) 1 Bottle 5 hydrocortisone 2.5 % cream Apply to rash in the eyebrow and eyelids 2-3 x's per week. (Patient not taking: Reported on 04/02/2023) 20 g 0 ketoconazole 2 % shampoo Apply to scaling patches in the eyebrows 2-3 x's per week and wash off. 120 mL 2 Turmeric 450 MG Oral Capsule Take 2 Capsules by mouth in the morning. EPINEPHrine 0.3 MG/0.3ML Injection Solution Auto-injector (Autoinjector) Inject 0.3 mg into a largemuscle as needed for Allergies or Other (sting). Into thigh . 1 Each 0 Escitalopram Oxalate 20 MG Oral Tablet (Lexapro) Take 1 Tablet by mouth in the morning. 30 Tablet 11 Gabapentin 300 MG Oral Capsule (Neurontin) TAKE 1 CAPSULE BY MOUTH IN THE MORNING AND 1 CAPSULE AT NOON AND 1 CAPSULE BEFORE BEDTIME. 90 Capsule 5 Doxazosin Mesylate 4 MG Oral Tablet (Cardura) TAKE 1 TABLET BY MOUTH AT BEDTIME. 90 Tablet 3 Escitalopram Oxalate 10 MG Oral Tablet (Lexapro) Take 1 Tablet by mouth in the morning. 30 Tablet 5 Cetirizine HCl 10 MG Oral Tablet (ZyrTEC) Take 1 Tablet by mouth in the morning. SUMAtriptan Succinate 50 MG Oral Tablet (Imitrex) Take 2 tablets at onset of migraine and one tablet every 2 hours as needed, not more than 5 tablets in 24 hours 12 Tablet 5 Omeprazole 20 MG Oral Capsule Delayed Release (PriLOSEC) TAKE 1 CAPSULE BY MOUTH IN THE MORNING. 90Capsule 1 Atorvastatin Calcium 40 MG Oral Tablet (Lipitor) Take 1 Tablet by mouth every afternoon. 90 Tablet 3 amLODIPine Besylate 5 MG Oral Tablet (Norvasc) TAKE ONE TABLET BY MOUTH IN THE MORNING 30 Tablet 11 No current facility-administered medications for this visit. Review of patient's allergies indicates: Allergen Reactions Bee Stings Edema face/lips/tongue Results for orders placed or performed in visit on 03/29/23 CBC Result Value Ref Range WBC 6.13 4.00 - 10.80 K/uL RBC 4.78 4.50 - 5.25 M/uL HGB 14.3 14.0 - 16.8 g/dL HCT 43.5 40.0 - 48.4 % MCV 91.0 82.0 - 99.5 fL MCH 29.9 27.0 - 34.0 pg MCHC 32.9 32.0 - 36.0 g/dL RDW 13.2 11.5 - 15.5 % PLT 272 140 - 400 K/uL MPV 10.3 6.6 - 11.1 fL Results for orders placed or performed in visit on 03/29/23 BASIC METABOLIC PANEL Result Value Ref Range BUN 9 6 - 20 mg/dL Creatinine 0.8 0.6 - 1.2 mg/dL Estimated Glomerular Filtration Rate >90 >=60 mL/min Sodium 141 135 - 146 mmol/L Potassium 4.1 3.5 - 5.1 mmol/L Chloride 105 98 - 107 mmol/L CO2 23 22 - 32 mmol/L Anion Gap 13 7 - 15 mmol/L Glucose 96 70 - 120 mg/dL Calcium 9.6 8.4 - 10.2 mg/dL Results for orders placed or performed in visit on 07/24/09 LIPID PANEL Result Value Ref Range HOURS FASTING 12 hours Triglycerides 199 55 - 320 mg/dL Cholesterol 210 (H) <200 mg/dL HDL Cholesterol 38 (L) 40 - 59 mg/dL Cholesterol-HDL Ratio 5.5 LDL Cholesterol 132 (H) 0 - 100 mg/dL Results for orders placed or performed during the hospital encounter of 03/17/23 LIPID PANEL WITH DIRECT LDL IF TG IS HIGH Result Value Ref Range Triglycerides 202 (H) <=174 mg/dL Cholesterol 188 <200 mg/dL HDL Cholesterol 31 (L) >39 mg/dL Non-HDL Cholesterol 157 <=159 mg/dL LDL Cholesterol 117 <=129 mg/dL Lab Results Component Value Date/Time HEMOGLOBIN A1C - CAPRICEER 5.6 03/17/2023 10:27 AM No results found for: "TSH" EMMANUEL YENI SCREEN Date Value Ref Range Status 01/27/2017 NEGATIVE Final 07/24/2009 NEGATIVE Final Results for orders placed or performed in visit on 04/17/22 VITAMIN B12 Result Value Ref Range Vitamin B12 436 232 - 1,245 pg/mL No results found for: "YSNH67DQP1" No results found for: "GASS82IAV2" No results found for: "ZIIXURRD90YH" No results found for: "25OHVITAMIND" Vitamin D Level Interpretation deficient: <20 ng/ml insufficient: 20-30 ng/ml normal: 31-100 ng/ml REVIEW OF SYSTEMS: As above PHYSICAL EXAM: BP 122/80 | Pulse 96 | Temp 36.4 C (97.6 F) (Tympanic) | Resp 16 | Wt 93.7 kg (206 lb 8 oz) | SpO2 96% | BMI 31.40 kg/m | BSA 2.12 m The patient is awake and alert speech and language are normal affect appropriate no carotid bruits no heart murmurs heart is regular rate and rhythm. There is normal extraocular motility facial symmetry spontaneous speech and language are unremarkable motor 5/5 no drift normal rapid alternating movements symmetric reflexes downgoing toes. 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 Continue Keppra driving restriction for 6 months. Patient may return to work. Etiology of dizziness unclear no dysrhythmia not positional or postural if persistent could refer to physical therapy balance Clinic. Total of 40 minutes spent with the patient more than 50% counseling Abnormal echo with mitral valvular disease have forwarded to primary care. . PFO of no clear significance. Return in 6 months Family history of HH T genetic testing pending Shirin Pisano MD 05/13/2023 9:55 AM documented in this encounter Nursing Notes * Yanni Landry MED ASSIST - 05/13/2023 9:11 AM EDT Chief Complaint Patient presents with Return Neuro documented in this encounter Plan of Treatment Upcoming Encounters Date Type Department Care Team (Late st Contact Info) Description 09/28/2023 1:40 PM EDT Office Visit Family Practice [facility] [place] [address] [place] [address] Ancelmo Roche, [address] [place] [address] [address] 11/15/2023 10:00 AM EDT Office Visit [facility] [address] [place] [address] Shirin Pisano MD [address] [facility] [place] [address] Scheduled Procedures Name Priority Associated Diagnoses Date/Ti me COLONOSCOPY FLEXIBLE PROXIMAL DIAGNOSTIC Recall History of colon polyps Health Maintenance Due Date Last Done Comments Hepatitis C Screening 06/05/1983 Hepatitis B (1 of 3 - 19+ 3-dose series) 1984 Depression Screening 05/25/2020 05/26/2019 COVID-19 Vaccine (3 - 2022-24 [...] this encounter Medical Devices Implanted Type Area Associate Designer Device Identifier Shelf Expiration Date Model / Serial / Lot Hemostatic Clip Res 235cm - [id number] Implanted:Qty: 2 on 09/24/2022 by Irma Swenson DO at ENDOSCOPY [facility] Colon [employer] : ENDOSCOPY 04/16/2025 [id number] / / documented as of this encounter Visit Diagnoses Diagnosis New onset seizure with abnormal neurological exam without head trauma (HCC)- Primary documented in this encounter Advance Directives [...] the patient have Health Care Power of Balance Clerk? No Care Teams Him Tech Relationship Specialty Start Date End Date Ancelmo Roche DO [address] [place] [address] PCP - General Family Medicine 12/15/16 documented as of this encounter
--- OUTSIDE RECORDS SUMMARY | 2023-11-07 13:56 | External Medical Summary | Summary of Care ---
Author Name Unknown Organization [facility] Address [address] [place] [address] Phone [phone] Care Team Providers Care Sound Engineering Technician Name Role Phone Ancelmo Roche DO Primary Care Provider Encounter Details Date Type Department Care Team (Late st Contact Info) Description 05/11/2023 Orders Only Outcomes Research Department [address], [place] [id number] Riana Madera CHRA MyCode Research Other*[id number] Allergies Active Allergy Reactions Criticality Noted Date Comments Bee Stings Edema face/lips/tongue High 10/19/2008 documented as of this encounter (statuses as of 05/11/2023) Medications Medication Sig Dispensed Refills Start Date [...] 0 Active Additional Information Patient taking differently:2 [place] Each NostrilHS, Indications: AT BEDTIME, Informant: Patient, [...] Active SUMAtriptan Succinate 50 MG Oral Tablet (Imitrex)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 Take 2 tablets at [...] THE MORNING 30 Tablet 11 4 Active documented as of this encounter (statuses as of 05/11/2023) Active Problems Problem Noted Date Diagnosed Date [...] as of this encounter (statuses as of 05/11/2023) Resolved Problems Problem Noted Date Diagnosed Date Resolved Date Right sided weakness 03/17/2023 024 Hypokalemia 03/17/2023 03/18/2023 Numbness and tingling in left hand 03/13/2023 03/18/2023 Intractable migraine with au ra without status migrainosus 03/13/2023 03/18/2023 documented as of this encounter (statuses as of 05/11/2023) Immunizations Name Administration Dates Next Due COVID-19 mRNA, LNP-s, No Pre serve, 2-Dose Series ([employer]) 11/14/2020,10/24/2020 Seasonal Influenza, PF, 6 M & [...] 05/13/2023 9:20 AM EDT Office Visit Neurology [facility] [address] [place] [address] [address] Shirin Pisano MD 200 [facility] [place] [address] 09/28/2023 1:40 PM EDT Office Visit Family Practice [facility] [place] [address] [place] [address] Ancelmo Roche DO [address] [facility] [place] [address] Scheduled Orders Name Type Priority Associated Diagnoses Orde r Schedule MYCODE SUBSEQUENT ADULT Lab Routine MyCode Research Other*[id number] Every 6 Months for 2 Occurrences starting 05/11/2023 until 05/30/2024 Scheduled Procedures Name Priority Associated Diagnoses Date/Ti [...] this encounter Medical Devices Implanted Type Area Zipper Trimmer Device Identifier Shelf Expiration Date Model / Serial / Lot Hemostatic Clip Res 235cm - [id number] Implanted:Qty: 2 on 09/24/2022 by Irma Swenson DO at ENDOSCOPY [facility] Colon [facility] : ENDOSCOPY 04/16/2025 [id number] / / documented as of this encounter Visit Diagnoses Diagnosis MyCode Research Other*[id number] documented in this encounter Advance Directives Latest [...] the patient have Health Care Power of Salesforce Trainer? No Care Teams Sound Engineering Technician Relationship Specialty Start Date End Date Ancelmo Roche DO [address] [place] [address] PCP - General Family Medicine 12/15/16 documented as of this encounter
--- NOTE | 2023-11-07 14:13 | Emergency Department Note ---
Impression & Plan Syncope and collapse, COVID-19, Acute UTI (urinary tract infection) ED Provider Note Name: HERBERTH QUIROGA Age: 58 Sex: Male Arrives Via: Walk-In Informant: Patient and ED Provider: Curry Plaza MD Chief Complaint: Weakness Impression: As per impressions above. Medical Decision Makin-year-old male arrives for evaluation of illness for the last 2 to 3 days. Rapidly worsening. On examination patient is uncomfortable he has some wheezing and he is complaining of diffuse bodyaches. Given a small dose of IV pain med with improvement. Laboratory workup including blood cultures were obtained given the syncope. Urinalysis is positive for UTI. COVID is also positive. Laboratory workup is otherwise reassuring. In the setting of syncope and 2 different infections hospitalization seems indicated. He was given IV Rocephin for management of UTI. Patient did have several episodes of lower O2 sats into the 80s. This may be all narcotic related however given his positive COVID testing I do feel that it is reasonable to give a dose of steroids. Patient was given Decadron. Hospitalist consulted for further management. Patient is not significantly tachycardic or hypotensive and he does not have hypoxia other than following the narcotic thus we will hold off on CT imaging of the chest at this time. Patient has no headache or neck pain. He is neuro intact with an NIH of 0. Will hold off on neuroimaging at this time as he did not strike his head as well. At time of hospitalization patient notes that he is having some epigastric discomfort. He does have a history of pancreatitis thus lipase was added onto labs. Triage/Nursing Notes reviewed by Me Differential:Vasovagal event, dehydration, infection, hypoglycemia, electrolyte abnormalities, cardiac sources, intracerebral event, pulmonary embolism, seizure, toxicologic, neurologic, as well as other pathologies. Vital Signs: reviewed and remarkable for no significant abnormalities Interventions: Dilaudid 0.5 mg IV x 2, Rocephin 2 g IV, Decadron 10 mg IV, normal saline bolus 1 L IV Labs:ED labs Reviewed by me and remarkable for positive COVID, positive UTI, Imagin view chest x-ray as per my interpretation no infiltrate or effusion appreciated. EKG:As per my interpretation. Indication near syncopal event. Sinus tachycardia 111 bpm QTc of 451. No ectopy no ischemia. Compared to EKG of no significant change. Cardiac/Tele Monitoring: Cardiac Monitoring: An Order was placed for continuous cardiac monitoring. The monitor shows a rate of 70 with a normal sinus rhythm. Consults:Discussed with [facility]ist who will further evaluate for hospitalization Plan: Disposition:Hospitalization. Condition: Good History of Present Illness: 58-year-old male arrives for evaluation illness. Patient states that he is been feeling ill for the last 2 to 3 days. Rapidly worsening today. Associated weakness and passing out. Patient did pass out in his car on arrival to the ER. Patient notes that he has been having urinary burning and frequency the last few days. Started straight cathing about a week ago. Does have a history of UTI years ago but had not had to straight cath for some time for his neurogenic bladder until recently. He also notes that the same time last week he started developing runny nose congestion cough and fatigue. Patient states that he has had a fever on and off the last few days with chills and rigors last night. Patient denies any headache, neck pain, significant chest pain, abdominal pain, back pain, leg swelling or other concerning signs or symptoms. Patient states that he is having diffuse severe body aches and pain. Past Medical History: Hypertension, neurogenic bladder, pancreatitis Home Medications:See Below Allergies:bee venom Vitals:Blood Pressure: 140/93, Pulse 115, RR 12, T 37.0C, O2 96% on RA Physical Exam: GENERAL: Patient is uncomfortable appearing and in moderate distress. RESPIRATORY: No dyspnea. Clear to auscultation and equal bilaterally. CARDIOVASCULAR: Tachycardia.No murmur appreciated. GASTROINTESTINAL: Abdomen soft, non-tender, no peritonitis. EXTREMITIES: Normal motion all extremities, no cyanosis, no edema. NEUROLOGIC: Alert and oriented. No focal neurologic deficits appreciated SKIN: No rash, no jaundice, no diaphoresis. PSYCH: Appropriate GCS: 15 ED Course: Times/Reassessments: Patient is vastly improved following fluids and pain medication. Vital signs are improved she is breathing comfortably. Denies any chest pain or significant shortness of breath at this time Curry Plaza MD Past Med/Surg History Problem List (Updated 11/07/23 @ 16:36 by Curry Plaza MD) Acute UTI (urinary tract infection) (Acute) COVID-19 (Acute) Syncope and collapse (Acute) Disc displacement, lumbar (Chronic) Pancreatitis (Acute) Neurogenic bladder (Chronic) Essential hypertension (Chronic) Abdominal pain (Acute) Medical History (Updated 11/07/23 @ 16:36 by Curry Plaza MD) Family history of reaction to anesthesia PT BELIEVES MOTHER HAD ANESTHESIA REACTION - DOES NOT KNOW SPECIFICS. Chronic back pain Osteoarthritis Chronic prostatitis Diverticular disease Pancreatitis Colon polyps Cancer BCC - REMOVED - BACK Hearing deficit Post traumatic stress disorder Migraine History of viral meningitis History of lumbar puncture Cardiac murmur Mitral valve prolapse Hypertension Surgical History History of vasectomy History of cholecystectomy History of herniorrhaphy History of colonoscopy Family History Other Cancer Diabetes Gallbladder disease Heart disease Hypertension Social History Smoking Status: Former smoker Second Hand Exposure: Yes ( SMOKES); Do You Dip or Chew Tobacco: No; Hx Alcohol Use: Yes Alcohol type: hard liquor Hx Substance Use: No Preferred Language: Turkmen Communication Ability: Effective Endorsement Clerk Required: No Beliefs That Will Affect Care: None marital status: Current Living Situation: Spouse current occupational status: employed Feels Safe at Home: Yes Assistive Devices: None Allergies Allergies Allergy/AdvReac Type Severity Reaction Status Date / Time bee venom protein (honey bee) Allergy Severe "PASSED Verified 05/26/19 17:32 OUT" Home Meds Home Medications Medication Instructions Recorded Confirmed amlodipine 5 mg tablet 5 mg PO QAM 11/05/17 05/26/19 aspirin 81 mg tablet,delayed 81 mg PO QAM 11/05/17 05/26/19 release cetirizine 10 mg tablet (Zyrtec) 10 mg PO QAM 11/05/17 05/26/19 cranberry 500 mg capsule 500 mg PO DAILY 11/05/17 05/26/19 doxazosin 8 mg tablet 8 mg PO HS 11/05/17 05/26/19 fluticasone propionate 50 2 spray intranasal DAILY PRN 11/05/17 05/26/19 mcg/actuation nasal Congestion spray,suspension (Flonase Allergy Relief) gabapentin 400 mg capsule 400 mg PO TID 11/05/17 05/26/19 ginkgo biloba 40 mg tablet 40 mg PO QAM 11/05/17 05/26/19 glucosamine-chondroitin 500 mg-400 1 tab PO TIDM 11/05/17 05/26/19 mg tablet meloxicam 7.5 mg tablet 7.5 mg PO QAM 11/05/17 05/26/19 omeprazole 20 mg tablet,delayed 20 mg PO QAM 11/05/17 05/26/19 release aluminum-mag hydroxide-simethicone 15 ml PO QID PRN Gas 11/14/18 05/26/19 200 mg-200 mg-20 mg/5 mL oral susp (Maalox Advanced) epinephrine 0.3 mg/0.3 mL 0.3 mg IM Q3H PRN Anaphylaxis 11/14/18 05/26/19 injection, auto-injector (EpiPen 2-Steven) simethicone 125 mg capsule (Gas-X 125 mg PO BID PRN Gas 11/14/18 05/26/19 Extra Strength) Previous Rx's Medication Instructions Recorded oxycodone 5 mg tablet 5 mg PO Q6H PRN pain #10 tabs 07/10/21 cyclobenzaprine 5 mg tablet 5 mg PO TID PRN muscle spasm #30 11/25/21 tabs etodolac 200 mg capsule 200 mg PO BID PRN pain #20 caps 11/25/21 Results & Data (ED) Vital Signs Vital Signs - 24 hr 11/07/23 13:54 11/07/23 14:10 11/07/23 14:26 Temperature 37.0 C Temperature Source Oral Pulse Rate 115 H 102 H Pulse Rate [Right Finger] 97 H Pulse Rhythm [Right Finger] Pulse Strength [Right Finger] Respiratory Rate 12 24 18 Respiratory Effort / Characteristics Non-Labored Spontaneous Non-Labored Spontaneous Respiratory Depth Normal Normal Respiratory Pattern Regular Blood Pressure 140/93 Blood Pressure [Left Arm] 155/88 H Blood Pressure Mean 108 Blood Pressure Mean [Left Arm] 110 Blood Pressure Position [Left Arm] Pulse Oximetry 96 95 Oxygen Delivery Method Room Air Room Air Room Air Sepsis Recent Fever Within 48 Hours Yes Sepsis New/Unexplained Change in Mental Status N/A Sepsis Action Taken by Nursing No Action Required 11/07/23 14:26 11/07/23 14:51 11/07/23 14:58 Temperature Temperature Source Pulse Rate 109 H Pulse Rate [Right Finger] 105 H 87 Pulse Rhythm [Right Finger] Pulse Strength [Right Finger] Respiratory Rate 19 19 Respiratory Effort / Characteristics Respiratory Depth Respiratory Pattern Blood Pressure Blood Pressure [Left Arm] 134/84 153/85 H Blood Pressure Mean Blood Pressure Mean [Left Arm] 100 107 Blood Pressure Position [Left Arm] Pulse Oximetry 93 94 Oxygen Delivery Method Room Air Room Air Sepsis Recent Fever Within 48 Hours Sepsis New/Unexplained Change in Mental Status Sepsis Action Taken by Nursing 11/07/23 15:25 11/07/23 15:48 11/07/23 16:23 Temperature Temperature Source Pulse Rate Pulse Rate [Right Finger] 86 89 84 Pulse Rhythm [Right Finger] Regular Regular Regular Pulse Strength [Right Finger] Normal Normal Normal Respiratory Rate 13 13 15 Respiratory Effort / Characteristics Non-Labored Non-Labored Non-Labored Respiratory Depth Normal Normal Normal Respiratory Pattern Regular Regular Regular Blood Pressure Blood Pressure [Left Arm] 158/95 H 152/96 H 146/96 H Blood Pressure Mean Blood Pressure Mean [Left Arm] 116 114 112 Blood Pressure Position [Left Arm] Lying Lying Lying Pulse Oximetry 94 94 93 Oxygen Delivery Method Room Air Room Air Room Air Sepsis Recent Fever Within 48 Hours Sepsis New/Unexplained Change in Mental Status Sepsis Action Taken by Nursing Laboratory Data 11/07/23 14:14 11/07/23 14:14 Lab Results 11/07/23 11/07/23 11/07/23 Range/Units 14:05 14:14 14:50 WBC 5.49 (4.8-10.8) K/ul RBC 4.46 L (4.70-6.10) M/uL Hgb 13.6 L (14.0-18.0) g/dl Hct 39.1 L (42.0-52.0) % MCV 87.7 (80.0-100.0) fL MCH 30.5 (25.0-34.0) pg MCHC 34.8 (32.0-36.0) g/dL RDW Std Deviation 39.4 (36.4-46.3) fL RDW Coeff of Jeanine 12.2 (11.5-14.5) % Plt Count 242 (130-400) K/uL MPV 10.0 (9.4-12.4) fL Immature Gran % (Auto) 0.2 % Neut % (Auto) 66.8 % Lymph % (Auto) 15.3 % [place] % (Auto) 15.7 % Eos % (Auto) 0.7 % Baso % (Auto) 1.3 % Neut # (Auto) 3.67 (1.40-6.50) K/uL Lymph # (Auto) 0.84 L (1.20-3.40) K/uL [place] # (Auto) 0.86 H (0.11-0.59) K/uL Eos # (Auto) 0.04 (0.00-0.50) K/uL Baso # (Auto) 0.07 (0.00-0.20) K/uL Immature Gran # (Auto) 0.01 (0.01-0.20) K/uL Sodium 138 (136-145) mmol/L Potassium 3.2 L (3.5-5.1) mmol/L Chloride 105 (98-107) mmol/L Carbon Dioxide 24 (21-32) mmol/L Anion Gap 9 (3-11) BUN 9 (6-23) mg/dl Creatinine 0.89 (0.6-1.4) mg/dl Est Cr Clr Drug Dosing 100.9 ml/min Est GFR ( Amer) 109.2 ml/min Est GFR (Non-Af Amer) 94.3 ml/min BUN/Creatinine Ratio 10.1 (10-20) Glucose 102 H (70-99(Fasting)) mg/dl Lactate 1.4 (0.4-2.0) mmol/L Calcium 8.9 (8.6-10.3) mg/dl Magnesium 1.7 (1.7-2.4) mg/dl Total Bilirubin 0.6 (0.2-1.0) mg/dl Direct Bilirubin 0.1 (0-0.2) mg/dl AST 21 (13-39) U/L ALT 25 (7-52) U/L Alkaline Phosphatase 94 (34-104) U/L Total Creatine Kinase 114 (30-223) U/L Troponin I High Sens 2.4 (0-20) pg/ml Total Protein 7.0 (6.0-8.3) gm/dl Albumin 4.3 (3.4-5.0) gm/dl Lipase 32 (11-82) U/L Procalcitonin 0.03 (0-0.5) ng/ml Urine Color Yellow Urine Appearance Cloudy A (Clear) Urine pH 6.5 (4.5-7.5) Ur Specific [place] 1.011 (1.000-1.030) Urine Protein Negative (Negative) Urine Glucose (UA) Negative (Negative) Urine Ketones Negative (Negative) Urine Blood Negative (Negative) Urine Nitrite Negative (Negative) Urine Bilirubin Negative (Negative) Urine Urobilinogen Negative (Negative) Ur Leukocyte Esterase 3+ H (Negative) Urine WBC (Auto) 21-50 H (0-5) /hpf Urine RBC (Auto) >20 H (0-2) /hpf U Hyaline Cast (Auto) 0-2 (0-2) /lpf U Epithel Cells (Auto) 0-2 (0-2) /hpf Urine Bacteria (Auto) 4+ H (None Seen) SARS-CoV-2 (PCR) POSITIVE A (Negative) Influenza Type A (PCR) Negative (Neg) Influenza Type B (PCR) Negative (Neg) RSV (RT-PCR) Negative (Neg) Administered Medications Discontinued Medications Dexamethasone Sodium Phosphate (DexamethasonePf 10 Mg/Ml Vial) 10 mg IV NOW ONE Stop: 11/07/23 15:27 Last Admin: 11/07/23 15:46 Dose: 10 mg Documented By: KEN Hydromorphone HCl (Hydromorphone Inj 0.5 Mg/0.5 Ml Syr) 0.5 mg IV NOW STA Stop: 11/07/23 14:11 Last Admin: 11/07/23 14:21 Dose: 0.5 mg Documented By: NRMuna Hydromorphone HCl (Hydromorphone Inj 0.5 Mg/0.5 Ml Syr) 0.5 mg IV NOW STA Stop: 11/07/23 15:09 Last Admin: 11/07/23 15:10 Dose: 0.5 mg Documented By: ASW Sodium Chloride (Nss) 1,000 mls @ 999 mls/hr IV .Q1H1M KATLIN Stop: 11/07/23 15:15 Last Infusion: 11/07/23 15:45 Dose: Infused Documented By: Admin: 11/07/23 14:21 Dose: 999 mls/hr Documented By: JACKI Acetaminophen (Ofirmev) 1,000 mg in 100 mls @ 400 mls/hr IV NOW STA Stop: 11/07/23 14:24 Last Infusion: 11/07/23 14:59 Dose: Infused Documented By: Admin: 11/07/23 14:21 Dose: 400 mls/hr Documented By: JACKI Ceftriaxone Sodium (Rocephin) 2,000 mg in 50 mls @ 100 mls/hr IV NOW STA Stop: 11/07/23 15:55 Last Infusion: 11/07/23 16:18 Dose: Infused Documented By: Admin: 11/07/23 15:45 Dose: 100 mls/hr Documented By: KEN Imaging Data Radiologist's Impression: Chest X-Ray 11/07/23 14:10 XR chest 1V portable CLINICAL HISTORY: Sepsis. COMPARISON STUDY: Chest CT June 08, 2012. Chest radiograph May 26, 2019. FINDINGS: Lung volumes are normal. There is no consolidation. A few linear densities along the left heart border favor atelectasis or scarring. There is no pneumothorax or pleural effusion. Cardiac size is normal. Mediastinal contours are normal. There is no evidence for pulmonary edema. IMPRESSION: No acute cardiopulmonary findings. ACT 112: Negative or not required by law. Electronically signed by: Tucker Tsang M.D. 11/07/2023 2:40 PM Discharge Plan Visit Data Chief Complaint: Syncope Stated Complaint: SYNOCOPE, FEVER, NAUSEA ED Provider: Curry Plaza Discharge Problem: Syncope and collapse, COVID-19, Acute UTI (urinary tract infection) Forms Stand Alone Forms: [facility] Prescriptions Prescriptions: No Action simethicone [Gas-X Extra Strength] 125 mg Capsule 125 mg PO BID PRN (Reason: Gas) alum-mag hydroxide-simeth [Maalox Advanced] 200-200-20 mg/5 mL Suspension 15 ml PO QID PRN (Reason: Gas ) epinephrine [EpiPen 2-Steven] 0.3 mg/0.3 mL Auto-Injector 0.3 mg IM Q3H PRN (Reason: Anaphylaxis) cetirizine [Zyrtec] 10 mg Tablet 10 mg PO QAM gabapentin 400 mg Capsule 400 mg PO TID amlodipine 5 mg Tablet 5 mg PO QAM aspirin 81 mg Tablet,Delayed Release (Dr/Ec) 81 mg PO QAM meloxicam 7.5 mg Tablet 7.5 mg PO QAM ginkgo biloba 40 mg Tablet 40 mg PO QAM doxazosin 8 mg Tablet 8 mg PO HS fluticasone propionate [Flonase Allergy Relief] 50 mcg/actuation [place],Suspension 2 spray INTRANASAL DAILY PRN (Reason: Congestion) glucosamine-chondroitin 500-400 mg Tablet 1 tab PO TIDM cranberry 500 mg Capsule 500 mg PO DAILY omeprazole 20 mg Tablet,Delayed Release (Dr/Ec) 20 mg PO QAM oxycodone 5 mg tablet 5 mg PO Q6H PRN (Reason: pain) Qty: 10 0RF Rx Instructions: Initial Treatment cyclobenzaprine 5 mg tablet 5 mg PO TID PRN (Reason: muscle spasm) Qty: 30 0RF etodolac 200 mg capsule 200 mg PO BID PRN (Reason: pain) Qty: 20 0RF Referrals Referrals: Ancelmo Roche DO [Primary Care Provider] -
[2023-11-07] MEDS: ACETAMINOPHEN 1,000 MG/100 ML VIAL IV STA (14:21)
[2023-11-07] MEDS: SODIUM CHLORIDE 0.9% 1,000 ML IV SCH ×2 (14:21→20:57)
[2023-11-07] MEDS: HYDROmorphone INJ 0.5 MG/0.5 ML SYR IV STA ×2 (14:21→15:10)
--- NOTE | 2023-11-07 14:41 | XRay Report ---
XR chest 1V portable CLINICAL HISTORY: Sepsis. COMPARISON STUDY: Chest CT June 08, 2012. Chest radiograph May 26, 2019. FINDINGS: Lung volumes are normal. There is no consolidation. A few linear densities along the left h eart border favor atelectasis or scarring. There is no pneumothorax or pleural effusion. Cardiac size is normal. Mediastinal contours are normal. There is no evidence for pulmonary edema. IMPRESSION: No acute cardiopulmonary findings. ACT 112: Negative or not required by law. Electronically signed by: Tucker Tsang M.D. 11/07/2023 2:40 PM
[2023-11-07 14:44] LABS: Basophils # (auto) 0.07 K/uL (0.00-0.20); Basophils % (auto) 1.3 %; Eosinophils # (auto) 0.04 K/uL (0.00-0.50); Eosinophils % (auto) 0.7 %; Hematocrit (blood only) 39.1 % (42.0-52.0); Hemoglobin 13.6 g/dl (14.0-18.0); Immature Granulocytes # (auto) 0.01 K/uL (0.01-0.20); Immature Granulocytes % (auto) 0.2 %; Lymphocytes # (auto) 0.84 K/uL (1.20-3.40); Lymphocytes % (auto) 15.3 %; Mean Corpuscular Hemoglobin 30.5 pg (25.0-34.0); Mean Corpuscular Hgb Conc 34.8 g/dL (32.0-36.0); Mean Corpuscular Volume 87.7 fL (80.0-100.0); Monocytes # (auto) 0.86 K/uL (0.11-0.59); Monocytes % (auto) 15.7 %; Neutrophils # (auto) 3.67 K/uL (1.40-6.50); Neutrophils % (auto) 66.8 %; Platelet Count 242 K/uL (130-400); RDW Coefficient of Variation 12.2 % (11.5-14.5); RDW Standard Deviation 39.4 fL (36.4-46.3); Red Blood Count 4.46 M/uL (4.70-6.10); White Blood Count 5.49 K/ul (4.8-10.8)
[2023-11-07 15:01] LABS: Albumin Level 4.3 gm/dl (3.4-5.0); BUN Creatinine Ratio 10.1 (10-20); Bilirubin Direct 0.1 mg/dl (0-0.2); Bilirubin,Total 0.6 mg/dl (0.2-1.0); Calcium 8.9 mg/dl (8.6-10.3); Creatinine Clr Calc Pharmacy 100.9 ml/min; Est GFR (African American) 109.2 ml/min; Est GFR (Non-African American) 94.3 ml/min; Magnesium 1.7 mg/dl (1.7-2.4); Potassium 3.2 mmol/L (3.5-5.1)
[2023-11-07 15:05] LABS: Influenza A virus by PCR Negative (Neg); Influenza B virus by PCR Negative (Neg); RSV by PCR Negative (Neg); SARS CoV2 RNA(COVID-19) Ceph POSITIVE (Negative)
[2023-11-07 15:07] LABS: Troponin I High Sensitivity 2.4 pg/ml (0-20)
[2023-11-07 15:23] LABS: Appearance Urine Cloudy (Clear); Bacteria Urine Automated 4+ (None Seen); Bilirubin Urine Negative (Negative); Blood Urine Negative (Negative); Cast Urine Automated 0-2 /lpf (0-2); Color Urine Yellow; Epithelial Cell Urine Auto 0-2 /hpf (0-2); Glucose Urine UA Negative (Negative); Ketones Urine Negative (Negative); Leukocyte Esterase Urine 3+ (Negative); Nitrite Urine Negative (Negative); Protein Urine Negative (Negative); RBC Urine Automated >20 /hpf (0-2); Specific Gravity Urine 1.011 (1.000-1.030); Urobilinogen Urine Negative (Negative); WBC Urine Automated 21-50 /hpf (0-5); pH Urine 6.5 (4.5-7.5)
[2023-11-07] MEDS: cefTRIAXone SODIUM 2,000 MG/50 ML BAG IV STA (15:45)
[2023-11-07] MEDS: dexAMETHasone**PF** 10 MG/ML VIAL IV ONE (15:46)
--- NOTE | 2023-11-07 16:23 | History & Physical Report ---
Date of Service November 07, 2023 Assessment & Plan (1) Acute UTI (urinary tract infection): (2) COVID-19: (3) Syncope and collapse: Plan Patient is a 58-year-old male with past medical history significant for chronic pancreatitis, hypertension, neurogenic bladder who self caths, chronic prostatitis, seizures, MDD, PTSD who presents for evaluation of bodyaches, dysuria, shortness of breath and syncopal episode en route to the hospital. Patient states that he saw his urologist about 4 days ago and was told he needed to self cath once more for his history of neurogenic bladder. States that a few days later noted cloudy urine and started to develop body aches and dysuria. Also noted he was having shortness of breath especially when he takes a deep breath. Was found to be COVID-positive and with a UTI. states that while they were driving to the emergency room for further evaluation she noticed that he was slumped in his seat and did not wake up until he was in the emergency room. Patient states that he does not remember driving to the hospital but does remember entering the car. COVID-19 infection Shortness of Breath Patient presenting with body aches and shortness of breath Not acutely hypoxic, not requiring oxygen supplementation COVID-positive on respiratory testing Chest x-ray without any acute changes Chest CTA with noted cardiomegaly but no pneumonia or PE Given patient is not acutely hypoxic and on RA we will hold off on Decadron. Patient did receive a dose in the emergency room. supportive measures for COVID Continue to monitor Complicated UTI UA suggestive of infection Urine culture pending Patient self caths for history of neurogenic bladder Follows with urology Continue with IV cefepime, follow cultures and adjust as needed Syncope Per patient had a syncopal episode in the car Head CT ordered without acute abnormality Echo pending Orthostatic vitals pending Consider further workup with carotid Dopplers however likely in setting of acute illness IV fluids Continue to monitor on telemetry Hypokalemia potassium low at 3.2 replete as needed Continue other home meds as ordered Diet: HH DVT prophylaxis: Lovenox SQ Dispo: admit to med/surg with tele History of Present Illness Chief Complaint: Syncope Primary Care Provider: Ancelmo Roche DO Patient is a 58-year-old male with past medical history significant for chronic pancreatitis, hypertension, neurogenic bladder who self caths, chronic prostatitis, seizures, MDD, PTSD who presents for evaluation of bodyaches, dysuria, shortness of breath and syncopal episode en route to the hospital. Patient states that he saw his urologist about 4 days ago and was told he needed to self cath once more for his history of neurogenic bladder. States that a few days later noted cloudy urine and started to develop body aches and dysuria. Also noted he was having shortness of breath especially when he takes a deep breath. Was found to be COVID-positive and with a UTI. states that while they were driving to the emergency room for further evaluation she noticed that he was slumped in his seat and did not wake up until he was in the emergency room. Patient states that he does not remember driving to the hospital but does remember entering the car. At the time of exam noting abdominal tenderness, dysuria and bodyaches. Patient states that he does not want a Dimas and would like to continue to self cath while here. Allergies Allergy/AdvReac Type Severity Reaction Status Date / Time bee venom protein (honey bee) Allergy Severe "PASSED Verified 11/07/23 17:07 OUT" Home Medications Medication Instructions Recorded Confirmed Type amlodipine 5 mg tablet 5 mg PO QAM 11/05/17 11/07/23 History aspirin 81 mg tablet,delayed 81 mg PO QAM 11/05/17 11/07/23 History release cetirizine 10 mg tablet (Zyrtec) 10 mg PO QAM 11/05/17 11/07/23 History cranberry 500 mg capsule 500 mg PO QAM 11/05/17 11/07/23 History fluticasone propionate 50 2 spray intranasal DAILY PRN 11/05/17 11/07/23 History mcg/actuation nasal Congestion spray,suspension (Flonase Allergy Relief) ginkgo biloba 40 mg tablet 40 mg PO QAM 11/05/17 11/07/23 History glucosamine-chondroitin 500 mg-400 1 tab PO TIDM 11/05/17 11/07/23 History mg tablet omeprazole 20 mg tablet,delayed 20 mg PO QAM 11/05/17 11/07/23 History release aluminum-mag hydroxide-simethicone 15 ml PO QID PRN Gas 11/14/18 11/07/23 History 200 mg-200 mg-20 mg/5 mL oral susp (Maalox Advanced) epinephrine 0.3 mg/0.3 mL 0.3 mg IM Q3H PRN Anaphylaxis 11/14/18 11/07/23 Hist ory injection, auto-injector (EpiPen 2-Steven) simethicone 125 mg capsule (Gas-X 125 mg PO BID PRN Gas 11/14/18 11/07/23 History Extra Strength) atorvastatin 40 mg tablet 40 mg PO QAM 11/07/23 11/07/23 History doxazosin 4 mg tablet 4 mg PO HS 11/07/23 11/07/23 History escitalopram oxalate 20 mg tablet 20 mg PO QAM 11/07/23 11/07/23 History finasteride 5 mg tablet (Proscar) 5 mg PO HS 11/07/23 11/07/23 History gabapentin 300 mg capsule 300 mg PO TID 11/07/23 11/07/23 History Past Med/Surg History Problem List (Updated 11/07/23 @ 19:24 by Background Daemon) Acute UTI (urinary tract infection) (Acute) COVID-19 (Acute) Syncope and collapse (Acute) Disc displacement, lumbar (Chronic) Pancreatitis (Acute) Neurogenic bladder (Chronic) Essential hypertension (Chronic) Abdominal pain (Acute) Medical History (Updated 11/07/23 @ 19:24 by Background Daemon) Family history of reaction to anesthesia PT BELIEVES MOTHER HAD ANESTHESIA REACTION - DOES NOT KNOW SPECIFICS. Chronic back pain Osteoarthritis Chronic prostatitis Diverticular disease Pancreatitis Colon polyps Cancer BCC - REMOVED - BACK Hearing deficit Post traumatic stress disorder Migraine History of viral meningitis History of lumbar puncture Cardiac murmur Mitral valve prolapse Hypertension Surgical History History of vasectomy History of cholecystectomy History of herniorrhaphy History of colonoscopy Family History Other Cancer Diabetes Gallbladder disease Heart disease Hypertension Social History Smoking Status: Former smoker Second Hand Exposure: Yes ( SMOKES); Do You Dip or Chew Tobacco: No; Hx Alcohol Use: Yes Alcohol type: hard liquor Hx Substance Use: No Preferred Language: Luxembourger Communication Ability: Effective Mirror Inspector Required: No Beliefs That Will Affect Care: None marital status: Current Living Situation: Spouse current occupational status: employed Feels Safe at Home: Yes Assistive Devices: None Review of Systems Review of Systems: All systems reviewed & are unremarkable except as noted in HPI & below Physical Exam Physical Exam: General: Alert, orientedx3. No acute distress Psych: Appropriate mood and affect Neuro: No gross deficits HEENT: NC/AT CV: RRR Resp: Breath sounds clear bilaterally, but patient states it hurts with deep breaths Abdomen: Soft, tender diffusely Extremities: No edema in lower extremities bilaterally. Results & Data Results & Data Vital Signs (Past 12 Hours) Vital Signs Temp Pulse Pulse Resp BP BP Pulse Ox 11/07/23 15:48 89 13 152/96 H 94 11/07/23 15:25 86 13 158/95 H 94 11/07/23 14:58 87 19 153/85 H 94 11/07/23 14:51 105 H 19 134/84 93 11/07/23 14:26 109 H 11/07/23 14:26 97 H 18 155/88 H 95 11/07/23 14:10 102 H 24 11/07/23 13:54 37.0 C 115 H 12 140/93 96 O2 Del Method 11/07/23 15:48 Room Air 11/07/23 15:25 Room Air 11/07/23 14:58 Room Air 11/07/23 14:51 Room Air 11/07/23 14:26 11/07/23 14:26 Room Air 11/07/23 14:10 Room Air 11/07/23 13:54 Room Air Diagnostic Findings Chest X-Ray 11/07/23 14:10 XR chest 1V portable CLINICAL HISTORY: Sepsis. COMPARISON STUDY: Chest CT June 08, 2012. Chest radiograph May 26, 2019. FINDINGS: Lung volumes are normal. There is no consolidation. A few linear densities along the left heart border favor atelectasis or scarring. There is no pneumothorax or pleural effusion. Cardiac size is normal. Mediastinal contours are normal. There is no evidence for pulmonary edema. IMPRESSION: No acute cardiopulmonary findings. ACT 112: Negative or not required by law. Electronically signed by: Tucker Tsang M.D. 11/07/2023 2:40 PM Chest CTA 11/07/23 17:44 CT ANGIOGRAPHY OF THE CHEST, PULMONARY EMBOLUS PROTOCOL CLINICAL HISTORY: Syncope. Evaluate for pulmonary embolus. COMPARISON STUDY: Chest radiograph performed earlier today. Chest CT June 08, 2012. TECHNIQUE: Following IV administration of 118 mL of Optiray, helical axial images of the chest were obtained utilizing the pulmonary embolus protocol. Maximal intensity projections and sagittal and coronal reformats were viewed on an independent 3D workstation. IV contrast was administered without complication. Automated exposure control was utilized for the study. A dose lowering technique was utilized adhering to the principles of ALARA. CT DOSE: 1507.42 mGy.cm FINDINGS: No pulmonary emboli are identified. The heart is mildly enlarged. There is no thoracic aortic dissection. There is no pericardial effusion. No pneumothorax or pleural effusion is present. There is no consolidation to suggest pneumonia. Groundglass opacities favor atelectasis. There are no suspicious pulmonary nodules. No acute fractures within the bony thorax are noted. Hepatic steatosis is noted. Mild dilatation of the common bile duct is likely related to cholecystectomy. IMPRESSION: 1. No pulmonary emboli identified. 2. No acute intrathoracic findings. 3. Mild cardiomegaly. 4. Hepatic steatosis. ACT 112: Negative or not required by law. Electronically signed by: Tucker Tsagn M.D. 11/07/2023 6:[address] 11/07/23 17:45 CT OF THE HEAD WITHOUT CONTRAST CLINICAL HISTORY: Syncope. COMPARISON STUDY: MRI of the brain June 08, 2012. Head CT June 02, 2017. TECHNIQUE: Helical axial images of the head were obtained without IV contrast. Automated exposure control was utilized for the study. A dose lowering technique was utilized adhering to the principles of ALARA. FINDINGS: No acute intracranial hemorrhage, midline shift or mass effect is present. The ventricular system is unremarkable. The basal cisterns are patent. No extra-axial collections are present. There are no findings to suggest acute dural sinus thrombosis or acute territorial infarct. There are no calvarial fractures. IMPRESSION: No acute intracranial findings. ACT 112: Negative or not required by law. Electronically signed by: Tucker Tsang M.D. 11/07/2023 6:05 PM
[2023-11-07] MEDS: OPTIRAY 320 125ml IV ONE (17:59)
[2023-11-07] MEDS: POTASSIUM CHLORIDE CRTAB 20 MEQ TABCR PO STA (18:07)
--- NOTE | 2023-11-07 18:07 | CT Scan Report ---
CT OF THE HEAD WITHOUT CONTRAST CLINICAL HISTORY: Syncope. COMPARISON STUDY: MRI of the brain June 08, 2012. Head CT June 02, 2017. TECHNIQUE: Helical axial images of the head were obtained without IV contrast. Automated exposure con trol was utilized for the study. A dose lowering technique was utilized adhering to the principles o f ALARA. FINDINGS: No acute intracranial hemorrhage, midline shift or mass effect is present. The ventricular system is unremarkable. The basal cisterns are patent. No extra-axial collections are present. There are no findings to suggest acute dural sinus thrombosis or acute territorial infarct. There are no ca lvarial fractures. IMPRESSION: No acute intracranial findings. ACT 112: Negative or not required by law. Electronically signed by: Tucker Tsang M.D. 11/07/2023 6:05 PM
--- NOTE | 2023-11-07 18:12 | CT Scan Report ---
CT ANGIOGRAPHY OF THE CHEST, PULMONARY EMBOLUS PROTOCOL CLINICAL HISTORY: Syncope. Evaluate for pulmonary embolus. COMPARISON STUDY: Chest radiograph performed earlier today. Chest CT June 08, 2012. TECHNIQUE: Following IV administration of 118 mL of Optiray, helical axial images of the chest were o btained utilizing the pulmonary embolus protocol. Maximal intensity projections and sagittal and cor onal reformats were viewed on an independent 3D workstation. IV contrast was administered without co mplication. Automated exposure control was utilized for the study. A dose lowering technique was ut ilized adhering to the principles of ALARA. CT DOSE: 1507.42 mGy.cm FINDINGS: No pulmonary emboli are identified. The heart is mildly enlarged. There is no thoracic aor tic dissection. There is no pericardial effusion. No pneumothorax or pleural effusion is present. The re is no consolidation to suggest pneumonia. Groundglass opacities favor atelectasis. There are no sanders spicious pulmonary nodules. No acute fractures within the bony thorax are noted. Hepatic steatosis is noted. Mild dilatation of the common bile duct is likely related to cholecystectomy. IMPRESSION: 1. No pulmonary emboli identified. 2. No acute intrathoracic findings. 3. Mild cardiomegaly. 4. Hepatic steatosis. ACT 112: Negative or not required by law. Electronically signed by: Tucker Tsang M.D. 11/07/2023 6:10 PM
[2023-11-07] MEDS: CEFEPIME 2,000 MG in SYRINGE 0 ML IV SCH (20:58)
[2023-11-07] MEDS: DOXAZosin MESYLATE 4 MG TAB PO SCH (20:59)
[2023-11-07] MEDS: GABAPENTIN 300 MG CAP PO SCH (21:00)
[2023-11-07] MEDS: FINASTERIDE 5 MG TAB PO SCH (21:00)
[2023-11-07] MEDS: ENOXAPARIN INJ 40 MG/0.4 ML SYR SQ SCH (21:01)
[2023-11-07] MEDS: levETIRAcetam 500 MG TAB PO SCH (23:41)
[2023-11-08] MEDS ORDERED: amLODIPine BESYLATE 5 MG TAB PO SCH (09:00)
[2023-11-08] MEDS: ATORVASTATIN 40 MG TAB PO SCH (09:21)
[2023-11-08] MEDS: ASPIRIN 81 MG ECTAB PO SCH (09:21)
[2023-11-08] MEDS: ESCITALOPRAM OXALATE 20 MG TAB PO SCH (09:21)
[2023-11-08] MEDS: PANTOprazole 40 MG TAB PO SCH (09:21)
[2023-11-08] MEDS: CETIRIZINE HCL 10 MG TABLET PO SCH (09:22)
[2023-11-08] MEDS: POTASSIUM CHLORIDE CRTAB 20 MEQ TABCR PO ONE ×2 (09:28→10:14)
[2023-11-08] MEDS ORDERED: LEVALBUTEROL HCL 0.63 MG/3 ML NEB NEB PRN (16:39)
--- NOTE | 2023-11-08 16:45 | Hospitalist Progress Note ---
Date of Service November 08, 2023 Assessment & Plan (1) Acute UTI (urinary tract infection): (2) COVID-19: (3) Syncope and collapse: Plan Patient is a 58-year-old male with past medical history significant for chronic pancreatitis, hypertension, neurogenic bladder who self caths, chronic prostatitis, seizures, MDD, PTSD who presents for evaluation of bodyaches, dysuria, shortness of breath and syncopal episode en route to the hospital. Patient states that he saw his urologist about 4 days ago and was told he needed to self cath once more for his history of neurogenic bladder. States that a few days later noted cloudy urine and started to develop body aches and dysuria. Also noted he was having shortness of breath especially when he takes a deep breath. Was found to be COVID-positive and with a UTI. states that while they were driving to the emergency room for further evaluation she noticed that he was slumped in his seat and did not wake up until he was in the emergency room. Patient states that he does not remember driving to the hospital but does remember entering the car. COVID-19 infection Patient presenting with body aches and shortness of breath --Chest CTA:No pulmonary emboli identified. No acute intrathoracic findings. Mild cardiomegaly. --Serology: + COVID-19, negative influenza, RSV Normal procalcitonin Saturating well on room air Incentive spirometry Nebs as needed Conservative management Syncope Orthostatic hypotension Per patient had a syncopal episode in the car --CT head:No acute intracranial findings. --Positive Orthostatics --ECHO pending --EEG pending --Check Carotid Dopplers Amlodipine discontinued Continue gentle IV fluids Monitor on telemetry for any arrhythmias May need cardiac monitoring as outpatient Complicated UTI H/O neurogenic bladder Urine culture pending Patient self caths at baseline Follows with urology Continue with IV cefepime Hypokalemia Replete and monitor Other chronic conditions: Continue home medications as able Chronic pancreatitis Hypertension Seizures MDD, PTSD DVT Px: Lovenox SQ CODE STATUS Full code Admission and Anticipated Discharge Date Admission Date: November 07, 2023 Subjective Patient is seen and examined at bedside States having cough and dyspnea on exertion Also reports dysuria, dizziness with positional change No other complaints Review of Systems Review of Systems: All systems reviewed & are unremarkable except as noted in Subjective Physical Exam Physical Exam: Physical Exam: Vitals signs as noted above General Appearance:Moderately built and nourished, no apparent distress Head: normocephalic, Atraumatic Eyes: normal inspection, EOMI Neck: supple, Trachea midline Respiratory/Chest: Normal breath sounds, CTA, No accessory muscle use Cardiovascular: S1, S2, No murmur Abdomen/GI:Soft, Non tender, Bowel sounds present Extremities/Musculoskeletal:normal inspection, no edema Neurologic/Psych:AAOX3, grossly no focal neurological deficits Skin: normal color, warm Results & Data Results & Data Vital Signs (Past 12 Hours) Vital Signs Pulse Pulse Resp BP BP Pulse Ox O2 Del Method 11/08/23 12:31 Room Air 11/08/23 12:30 81 18 142/88 H 96 Room Air 11/08/23 12:09 73 21 93 Room Air 11/08/23 12:00 140/76 11/08/23 10:00 68 19 140/88 93 Room Air 11/08/23 08:39 67 19 130/85 95 Room Air 11/08/23 08:00 71 17 140/90 94 Room Air 11/08/23 07:16 67 11/08/23 05:48 68 18 129/86 93 Room Air
--- NOTE | 2023-11-08 22:39 | Electrocardiogram Report ---
Test Reason : Blood Pressure : */* mmHG Vent. Rate : 111 BPM Atrial Rate : 111 BPM P-R Int : 180 ms QRS Dur : 100 ms QT Int : 332 ms P-R-T Axes : 22 -33 29 degrees QTcB Int : 451 ms Sinus tachycardia Left axis deviation Moderate voltage criteria for LVH, may be normal variant Abnormal ECG When compared with ECG of 26-May-2019 16:43, No significant change was found Confirmed by Sharan Estrada ([id number]) on 11/08/2023 10:39:20 PM Referred By: Confirmed By: Sharan Estrada
[2023-11-08] MEDS: guaiFENesin/DEXTROM SYRUP 100MG/10MG 5ML UDC PO PRN (23:01)
--- NOTE | 2023-11-09 06:38 | Electroencephalogram ---
EEG Procedure Note Date of Service October Start / End Times Start Time: 732 End Time: [address] Janice Martin History A 58 year old male with COVID and UTI and recent seizure. EEG performed for evaluation of epileptiform activity. Home Medication List Medication Instructions Recorded Confirmed Type amlodipine 5 mg tablet 5 mg PO QAM 11/05/17 11/07/23 History aspirin 81 mg tablet,delayed 81 mg PO QAM 11/05/17 11/07/23 History release cetirizine 10 mg tablet (Zyrtec) 10 mg PO QAM 11/05/17 11/07/23 History cranberry 500 mg capsule 500 mg PO QAM 11/05/17 11/07/23 History fluticasone propionate 50 2 spray intranasal DAILY PRN 11/05/17 11/07/23 History mcg/actuation nasal Congestion spray,suspension (Flonase Allergy Relief) ginkgo biloba 40 mg tablet 40 mg PO QAM 11/05/17 11/07/23 History glucosamine-chondroitin 500 mg-400 1 tab PO TIDM 11/05/17 11/07/23 History mg tablet omeprazole 20 mg tablet,delayed 20 mg PO QAM 11/05/17 11/07/23 History release aluminum-mag hydroxide-simethicone 15 ml PO QID PRN Gas 11/14/18 11/07/23 History 200 mg-200 mg-20 mg/5 mL oral susp (Maalox Advanced) epinephrine 0.3 mg/0.3 mL 0.3 mg IM Q3H PRN Anaphylaxis 11/14/18 11/07/23 History injection, auto-injector (EpiPen 2-Steven) simethicone 125 mg capsule (Gas-X 125 mg PO BID PRN Gas 11/14/18 11/07/23 History Extra Strength) atorvastatin 40 mg tablet 40 mg PO QAM 11/07/23 11/07/23 History doxazosin 4 mg tablet 4 mg PO HS 11/07/23 11/07/23 History escitalopram oxalate 20 mg tablet 20 mg PO QAM 11/07/23 11/07/23 History finasteride 5 mg tablet (Proscar) 5 mg PO HS 11/07/23 11/07/23 History gabapentin 300 mg capsule 300 mg PO TID 11/07/23 11/07/23 History levetiracetam 500 mg tablet 500 mg PO BID 11/07/23 11/07/23 History Inpatient Medication List Aspirin (Aspirin 81 Mg Ectab) 81 mg PO [facility] Stop: 12/08/23 08:59 Last Admin: 11/08/23 09:21 Dose: 81 mg Documented By: KRYSTIN Atorvastatin Calcium (Atorvastatin 40 Mg Tab) 40 mg PO [facility] Stop: 12/08/23 08:59 Last Admin: 11/08/23 09:21 Dose: 40 mg Documented By: KRYSTIN Cetirizine HCl (Cetirizine Hcl 10 Mg Tablet) 10 mg PO [facility] Stop: 12/08/23 08:59 Last Admin: 11/08/23 09:22 Dose: 10 mg Documented By: KRYSTIN Doxazosin Mesylate (Doxazosin Mesylate 4 Mg Tab) 4 mg PO [facility] Stop: 12/07/23 20:59 Last Admin: 11/08/23 21:08 Dose: 4 mg Documented By: Admin: 11/07/23 20:59 Dose: 4 mg Documented By: KEN Enoxaparin Sodium (Enoxaparin Inj 40 Mg/0.4 Ml Syr) 40 mg SQ Q24H [facility] Stop: 12/07/23 20:59 Last Admin: 11/08/23 21:07 Dose: 40 mg Documented By: Admin: 11/07/23 21:01 Dose: 40 mg Documented By: KEN Escitalopram Oxalate (Escitalopram Oxalate 20 Mg Tab) 20 mg PO [facility] Stop: 12/08/23 08:59 Last Admin: 11/08/23 09:21 Dose: 20 mg Documented By: KRYSTIN Finasteride (Finasteride 5 Mg Tab) 5 mg PO [facility] Stop: 12/07/23 20:59 Last Admin: 11/08/23 21:08 Dose: 5 mg Documented By: Admin: 11/07/23 21:00 Dose: 5 mg Documented By: KEN Gabapentin (Gabapentin 300 Mg Cap) 300 mg PO TID [facility] Stop: 12/07/23 20:59 Last Admin: 11/08/23 21:08 Dose: 300 mg Documented By: Admin: 11/08/23 15:39 Dose: 300 mg Documented By: Admin: 11/08/23 09:21 Dose: 300 mg Documented By: Admin: 11/07/23 21:00 Dose: 300 mg Documented By: KEN Guaifenesin/Dextromethorphan (Guaifenesin/Dextrom Syrup 100mg/10mg 5ml Udc) 5 ml PO Q6H PRN PRN Reason: Cough Stop: 12/08/23 16:37 Last Admin: 11/09/23 05:34 Dose: 5 ml Documented By: Admin: 11/08/23 23:01 Dose: 5 ml Documented By: MEGAN Cefepime HCl 2,000 mg/ Syringe 20 mls @ 5 mls/min IV Q12H [facility]AT[facility]; Protocol Stop: 11/17/23 19:23 Last Admin: 11/08/23 22:40 Dose: 5 mls/min Documented By: Admin: 11/08/23 09:21 Dose: 5 mls/min Documented By: Admin: 11/07/23 20:58 Dose: 5 mls/min Documented By: KEN Levetiracetam (Levetiracetam 500 Mg Tab) 500 mg PO BID [facility] Stop: 12/07/23 22:59 Last Admin: 11/08/23 21:07 Dose: 500 mg Documented By: Admin: 11/08/23 09:21 Dose: 500 mg Documented By: Admin: 11/07/23 23:41 Dose: 500 mg Documented By: CHAU Pantoprazole Sodium (Pantoprazole 40 Mg Tab) 40 mg PO QAM [facility] Stop: 12/08/23 08:59 Last Admin: 11/08/23 09:21 Dose: 40 mg Documented By: KRYSTIN Discontinued Medications Dexamethasone Sodium Phosphate (DexamethasonePf 10 Mg/Ml Vial) 10 mg IV NOW ONE Stop: 11/07/23 15:27 Last Admin: 11/07/23 15:46 Dose: 10 mg Documented By: KEN Hydromorphone HCl (Hydromorphone Inj 0.5 Mg/0.5 Ml Syr) 0.5 mg IV NOW STA Stop: 11/07/23 14:11 Last Admin: 11/07/23 14:21 Dose: 0.5 mg Documented By: JACKI Hydromorphone HCl (Hydromorphone Inj 0.5 Mg/0.5 Ml Syr) 0.5 mg IV NOW STA Stop: 11/07/23 15:09 Last Admin: 11/07/23 15:10 Dose: 0.5 mg Documented By: JADEN Sodium Chloride (Nss) 1,000 mls @ 999 mls/hr IV .Q1H1M [facility] Stop: 11/07/23 15:15 Last Infusion: 11/07/23 15:45 Dose: Infused Documented By: Admin: 11/07/23 14:21 Dose: 999 mls/hr Documented By: NRB Acetaminophen (Ofirmev) 1,000 mg in 100 mls @ 400 mls/hr IV NOW STA Stop: 11/07/23 14:24 Last Infusion: 11/07/23 14:59 Dose: Infused Documented By: Admin: 11/07/23 14:21 Dose: 400 mls/hr Documented By: NRMuna Ceftriaxone Sodium (Rocephin) 2,000 mg in 50 mls @ 100 mls/hr IV NOW STA Stop: 11/07/23 15:55 Last Infusion: 11/07/23 16:18 Dose: Infused Documented By: Admin: 11/07/23 15:45 Dose: 100 mls/hr Documented By: KEN Sodium Chloride (Nss) 1,000 mls @ 80 mls/hr IV .[id number] [facility] Stop: 11/08/23 20:23 Last Infusion: 11/08/23 22:40 Dose: Infused Documented By: Admin: 11/08/23 09:27 Dose: 80 mls/hr Documented By: Infusion: 11/08/23 09:27 Dose: Infused Documented By: Admin: 11/07/23 20:57 Dose: 80 mls/hr Documented By: KEN Ioversol (Optiray 320 125ml) 118 ml IV ONCE ONE Stop: 11/07/23 17:59 Last Admin: 11/07/23 17:59 Dose: 118 ml Documented By: IDRIS Potassium Chloride (Potassium Chloride Crtab 20 Meq Tabcr) 40 meq PO NOW STA Stop: 11/07/23 17:41 Last Admin: 11/07/23 18:07 Dose: 40 meq Documented By: KEN Potassium Chloride (Potassium Chloride Crtab 20 Meq Tabcr) 40 meq PO ONE ONE Stop: 11/08/23 08:44 Last Admin: 11/08/23 09:28 Dose: Not Given Documented By: KRYSTIN Potassium Chloride (Potassium Chloride Crtab 20 Meq Tabcr) 20 meq PO ONE ONE Stop: 11/08/23 08:51 Last Admin: 11/08/23 10:14 Dose: 20 meq Documented By: KRYSTIN Description This is a 21 electrode EEG with a single channel dedicated to limited EKG. The electrodes were placed in accordance with the International 10-20 system. REPORT: At the onset of the EEG the patient is awake. The background is symmetric. The posterior dominant rhythm is 9 Hz. There is a normal anterior to posterior gradient. Drowsiness is characterized by increased theta activity and reduced blink rate. Photic does not induce any abnormalities. Interpretation Impression: This is a normal awake and drowsy routine EEG. There is no evidence of epileptiform activity.
[2023-11-09 07:55] VITALS: RESP 16
--- NOTE | 2023-11-09 07:56 | Ultrasound Report ---
ULTRASOUND OF THE CAROTID ARTERIES CLINICAL HISTORY: Syncope. COMPARISON STUDY: Carotid ultrasound dated 06/08/2012 TECHNIQUE: Real-time, grayscale, and color Doppler sonography of the carotid arteries is performed. I mages are reviewed in the transverse and longitudinal planes. FINDINGS: The carotid arteries are patent bilaterally and demonstrate antegrade flow. There is no significant a therosclerotic plaque identified. Normal doppler arterial waveforms are seen throughout. Velocity roro surements are listed below. Common carotid peak systolic velocity (cm/sec): RIGHT: 65 LEFT: 63 ICA proximal peak systolic velocity (cm/sec): RIGHT: 41 LEFT: 50 ICA mid peak systolic velocity (cm/sec): RIGHT: 48 LEFT: 46 ICA distal peak systolic velocity (cm/sec): RIGHT: 58 LEFT: 47 ICA/CC peak systolic ratio: RIGHT: 0.9 LEFT: 0.8 Antegrade flow was shown in the vertebral arteries. The external carotid arteries are patent. IMPRESSION: 1. There is no sonographic evidence of hemodynamically significant stenosis in the right or left [place] tid arterial system. 2. Antegrade flow is shown in the vertebral arteries. ACT 112: Negative or not required by law. Electronically signed by: Randal Callaway M.D. 11/09/2023 7:53 AM
[2023-11-09 07:57] LABS: Hematocrit (blood only) 39.5 % (42.0-52.0); Hemoglobin 13.3 g/dl (14.0-18.0); Mean Corpuscular Hgb Conc 33.7 g/dL (32.0-36.0); Mean Corpuscular Volume 89.2 fL (80.0-100.0); Mean Platelet Volume 10.4 fL (9.4-12.4); Platelet Count 234 K/uL (130-400); RDW Coefficient of Variation 12.6 % (11.5-14.5); RDW Standard Deviation 41.2 fL (36.4-46.3); Red Blood Count 4.43 M/uL (4.70-6.10); White Blood Count 7.02 K/ul (4.8-10.8)
[2023-11-09 08:12] LABS: BUN Creatinine Ratio 15.9 (10-20); Calcium 8.6 mg/dl (8.6-10.3); Creatinine Clr Calc Pharmacy 130.2 ml/min; Est GFR (African American) 121.3 ml/min; Est GFR (Non-African American) 104.6 ml/min; Potassium 3.8 mmol/L (3.5-5.1)
[2023-11-09 10:27] VITALS: BP 131/72; PULSE 83; TEMP 98.6; O2SAT 95
[2023-11-09] MEDS ORDERED: HYDROcodone/HOMATROPINE SYRUP 5MG/1.5MG 5ML UDP PO PRN (11:44)
--- NOTE | 2023-11-09 11:58 | Hospitalist Progress Note ---
Date of Service November 09, 2023 Assessment & Plan (1) Acute UTI (urinary tract infection): (2) COVID-19: (3) Syncope and collapse: Plan Patient is a 58-year-old male with past medical history significant for chronic pancreatitis, hypertension, neurogenic bladder who self caths, chronic prostatitis, seizures, MDD, PTSD who presents for evaluation of bodyaches, dysuria, shortness of breath and syncopal episode en route to the hospital. Patient states that he saw his urologist about 4 days ago and was told he needed to self cath once more for his history of neurogenic bladder. States that a few days later noted cloudy urine and started to develop body aches and dysuria. Also noted he was having shortness of breath especially when he takes a deep breath. Was found to be COVID-positive and with a UTI. states that while they were driving to the emergency room for further evaluation she noticed that he was slumped in his seat and did not wake up until he was in the emergency room. Patient states that he does not remember driving to the hospital but does remember entering the car. COVID-19 infection Patient presenting with body aches and shortness of breath --Chest CTA:No pulmonary emboli identified. No acute intrathoracic findings. Mild cardiomegaly. --Serology: + COVID-19, negative influenza, RSV Normal procalcitonin Saturating well on room air Incentive spirometry Nebs as needed Conservative management Antitussives as needed Plan to discharge home today Syncope Orthostatic hypotension Per patient had a syncopal episode in the car --CT head:No acute intracranial findings. --Positive Orthostatics --ECHO: EF 55 to 60%. Mild concentric LVH. Grade 1 diastolic dysfunction. Mild posterior mitral valve prolapse. Mild mitral regurgitation. --EEG:This is a normal awake and drowsy routine EEG. There is no evidence of epileptiform activity. --Carotid Dopplers:There is no sonographic evidence of hemodynamically significant stenosis in the right or left carotid arterial system. Antegrade flow is shown in the vertebral arteries. --No rhythm issues on monitor Amlodipine discontinued Received gentle IV fluids May need cardiac monitoring as outpatient Ruled out UTI H/O neurogenic bladder Urine culture: Negative Patient self caths at baseline Follows with urology Empirically received IV cefepime Hypokalemia Replete and monitor Other chronic conditions: Continue home medications as able Chronic pancreatitis Hypertension Seizures MDD, PTSD DVT Px: Lovenox SQ CODE STATUS Full code Admission and Anticipated Discharge Date Admission Date: November 07, 2023 Subjective Patient is seen and examined at bedside Still has some cough and some chest discomfort associated with cough Dizziness resolved Denies any dyspnea, nausea, vomiting, abdominal pain No other complaints Saturating well on room air Afebrile Review of Systems Review of Systems: All systems reviewed & are unremarkable except as noted in Subjective Physical Exam Physical Exam: Physical Exam: Vitals signs as noted above General Appearance:Moderately built and nourished, no apparent distress Head: normocephalic, Atraumatic Eyes: normal inspection, EOMI Neck: supple, Trachea midline Respiratory/Chest: Normal breath sounds, CTA, No accessory muscle use Cardiovascular: S1, S2, No murmur Abdomen/GI:Soft, Non tender, Bowel sounds present Extremities/Musculoskeletal:normal inspection, no edema Neurologic/Psych:AAOX3, grossly no focal neurological deficits Skin: normal color, warm Results & Data Results & Data Vital Signs (Past 12 Hours) Vital Signs Temp Pulse Pulse Resp BP Pulse Ox O2 Del Method 11/09/23 10:27 37.0 C 83 16 131/72 95 Room Air 11/09/23 08:24 60 11/09/23 07:54 36.9 C 66 16 136/81 98 Room Air 11/09/23 07:13 Room Air 11/09/23 03:47 36.6 C 55 L 20 141/88 H 93 Room Air 11/09/23 00:06 36.5 C 59 L 18 149/99 H 97 Room Air Laboratory Results Short CBC 11/09/23 Range/Units 07:02 WBC 7.02 (4.8-10.8) K/ul Hgb 13.3 L (14.0-18.0) g/dl Hct 39.5 L (42.0-52.0) % Plt Count 234 (130-400) K/uL BMP 11/09/23 07:02 Sodium 141 Potassium 3.8 Chloride 106 Carbon Dioxide 26 BUN 11 Creatinine 0.69 Glucose 81 Calcium 8.6
--- NOTE | 2023-11-09 12:20 | Discharge Summary ---
Date of Service November 09, 2023 Admission HPI Per Admitting Provider Patient is a 58-year-old male with past medical history significant for chronic pancreatitis, hypertension, neurogenic bladder who self caths, chronic prostatitis, seizures, MDD, PTSD who presents for evaluation of bodyaches, dysuria, shortness of breath and syncopal episode en route to the hospital. Patient states that he saw his urologist about 4 days ago and was told he needed to self cath once more for his history of neurogenic bladder. States that a few days later noted cloudy urine and started to develop body aches and dysuria. Also noted he was having shortness of breath especially when he takes a deep breath. Was found to be COVID-positive and with a UTI. states that while they were driving to the emergency room for further evaluation she noticed that he was slumped in his seat and did not wake up until he was in the emergency room. Patient states that he does not remember driving to the hospital but does remember entering the car. At the time of exam noting abdominal tenderness, dysuria and bodyaches. Patient states that he does not want a [place] and would like to continue to self cath while here. Admission Exam Per Admitting Provider General: Alert, orientedx3. No acute distress Psych: Appropriate mood and affect Neuro: No gross deficits HEENT: NC/AT CV: RRR Resp: Breath sounds clear bilaterally, but patient states it hurts with deep breaths Abdomen: Soft, tender diffusely Extremities: No edema in lower extremities bilaterally. Principal Diagnosis Syncope COVID-19 infection Discharge Data Allergies Allergy/AdvReac Type Severity Reaction Status Date / Time bee venom protein (honey bee) Allergy Severe "PASSED Verified 11/07/23 17:07 OUT" Consultations 11/07/23 15:36 ED Decision to Admit Stat Procedures Performed Laboratory Results WBC 7.02 K/ul (4.8-10.8) 11/09/23 07:02 RBC 4.43 M/uL (4.70-6.10) L 11/09/23 07:02 Hgb 13.3 g/dl (14.0-18.0) L 11/09/23 07:02 Hct 39.5 % (42.0-52.0) L 11/09/23 07:02 MCV 89.2 fL (80.0-100.0) 11/09/23 07:02 MCH 30.0 pg (25.0-34.0) 11/09/23 07:02 MCHC 33.7 g/dL (32.0-36.0) 11/09/23 07:02 RDW Std Deviation 41.2 fL (36.4-46.3) 11/09/23 07:02 RDW Coeff of Jeanine 12.6 % (11.5-14.5) 11/09/23 07:02 Plt Count 234 K/uL (130-400) 11/09/23 07:02 MPV 10.4 fL (9.4-12.4) 11/09/23 07:02 Immature Gran % (Auto) 0.2 % 11/07/23 14:14 Neut % (Auto) 66.8 % 11/07/23 14:14 Lymph % (Auto) 15.3 % 11/07/23 14:14 Randolph % (Auto) 15.7 % 11/07/23 14:14 Eos % (Auto) 0.7 % 11/07/23 14:14 Baso % (Auto) 1.3 % 11/07/23 14:14 Neut # (Auto) 3.67 K/uL (1.40-6.50) 11/07/23 14:14 Lymph # (Auto) 0.84 K/uL (1.20-3.40) L 11/07/23 14:14 Randolph # (Auto) 0.86 K/uL (0.11-0.59) H 11/07/23 14:14 Eos # (Auto) 0.04 K/uL (0.00-0.50) 11/07/23 14:14 Baso # (Auto) 0.07 K/uL (0.00-0.20) 11/07/23 14:14 Immature Gran # (Auto) 0.01 K/uL (0.01-0.20) 11/07/23 14:14 Sodium 141 mmol/L (136-145) 11/09/23 07:02 Potassium 3.8 mmol/L (3.5-5.1) 11/09/23 07:02 Chloride 106 mmol/L (98-107) 11/09/23 07:02 Carbon Dioxide 26 mmol/L (21-32) 11/09/23 07:02 Anion Gap 9 (3-11) 11/09/23 07:02 BUN 11 mg/dl (6-23) 11/09/23 07:02 Creatinine 0.69 mg/dl (0.6-1.4) 11/09/23 07:02 Est Cr Clr Drug Dosing 130.2 ml/min 11/09/23 07:02 Est GFR ( Amer) 121.3 ml/min 11/09/23 07:02 Est GFR (Non-Af Amer) 104.6 ml/min 11/09/23 07:02 BUN/Creatinine Ratio 15.9 (10-20) 11/09/23 07:02 Glucose 81 mg/dl (70-99(Fasting)) 11/09/23 07:02 Lactate 1.4 mmol/L (0.4-2.0) 11/07/23 14:14 Calcium 8.6 mg/dl (8.6-10.3) 11/09/23 07:02 Magnesium 2.0 mg/dl (1.7-2.4) 11/09/23 07:02 Total Bilirubin 0.6 mg/dl (0.2-1.0) 11/07/23 14:14 Direct Bilirubin 0.1 mg/dl (0-0.2) 11/07/23 14:14 AST 21 U/L (13-39) 11/07/23 14:14 ALT 25 U/L (7-52) 11/07/23 14:14 Alkaline Phosphatase 94 U/L (34-104) 11/07/23 14:14 Total Creatine Kinase 114 U/L (30-223) 11/07/23 14:14 Troponin I High Sens 2.4 pg/ml (0-20) 11/07/23 14:14 Total Protein 7.0 gm/dl (6.0-8.3) 11/07/23 14:14 Albumin 4.3 gm/dl (3.4-5.0) 11/07/23 14:14 Lipase 32 U/L (11-82) 11/07/23 14:14 Procalcitonin 0.03 ng/ml (0-0.5) 11/07/23 14:14 Urine Color Yellow 11/07/23 14:50 Urine Appearance Cloudy (Clear) A 11/07/23 14:50 Urine pH 6.5 (4.5-7.5) 11/07/23 14:50 Ur Specific Funk 1.011 (1.000-1.030) 11/07/23 14:50 Urine Protein Negative (Negative) 11/07/23 14:50 Urine Glucose (UA) Negative (Negative) 11/07/23 14:50 Urine Ketones Negative (Negative) 11/07/23 14:50 Urine Blood Negative (Negative) 11/07/23 14:50 Urine Nitrite Negative (Negative) 11/07/23 14:50 Urine Bilirubin Negative (Negative) 11/07/23 14:50 Urine Urobilinogen Negative (Negative) 11/07/23 14:50 Ur Leukocyte Esterase 3+ (Negative) H 11/07/23 14:50 Urine WBC (Auto) 21-50 /hpf (0-5) H 11/07/23 14:50 Urine RBC (Auto) >20 /hpf (0-2) H 11/07/23 14:50 U Hyaline Cast (Auto) 0-2 /lpf (0-2) 11/07/23 14:50 U Epithel Cells (Auto) 0-2 /hpf (0-2) 11/07/23 14:50 Urine Bacteria (Auto) 4+ (None Seen) H 11/07/23 14:50 SARS-CoV-2 (PCR) POSITIVE (Negative) A 11/07/23 14:05 Influenza Type A (PCR) Negative (Neg) 11/07/23 14:05 Influenza Type B (PCR) Negative (Neg) 11/07/23 14:05 RSV (RT-PCR) Negative (Neg) 11/07/23 14:05 Impressions Chest X-Ray 11/07/23 14:10 XR chest 1V portable CLINICAL HISTORY: Sepsis. COMPARISON STUDY: Chest CT June 08, 2012. Chest radiograph May 26, 2019. FINDINGS: Lung volumes are normal. There is no consolidation. A few linear densities along the left heart border favor atelectasis or scarring. There is no pneumothorax or pleural effusion. Cardiac size is normal. Mediastinal contours are normal. There is no evidence for pulmonary edema. IMPRESSION: No acute cardiopulmonary findings. ACT 112: Negative or not required by law. Electronically signed by: Tucker Tsang M.D. 11/07/2023 2:40 PM Chest CTA 11/07/23 17:44 CT ANGIOGRAPHY OF THE CHEST, PULMONARY EMBOLUS PROTOCOL CLINICAL HISTORY: Syncope. Evaluate for pulmonary embolus. COMPARISON STUDY: Chest radiograph performed earlier today. Chest CT June 08, 2012. TECHNIQUE: Following IV administration of 118 mL of Optiray, helical axial images of the chest were obtained utilizing the pulmonary embolus protocol. Maximal intensity projections and sagittal and coronal reformats were viewed on an independent 3D workstation. IV contrast was administered without complication. Automated exposure control was utilized for the study. A dose lowering technique was utilized adhering to the principles of ALARA. CT DOSE: 1507.42 mGy.cm FINDINGS: No pulmonary emboli are identified. The heart is mildly enlarged. There is no thoracic aortic dissection. There is no pericardial effusion. No pneumothorax or pleural effusion is present. There is no consolidation to suggest pneumonia. Groundglass opacities favor atelectasis. There are no suspicious pulmonary nodules. No acute fractures within the bony thorax are noted. Hepatic steatosis is noted. Mild dilatation of the common bile duct is likely related to cholecystectomy. IMPRESSION: 1. No pulmonary emboli identified. 2. No acute intrathoracic findings. 3. Mild cardiomegaly. 4. Hepatic steatosis. ACT 112: Negative or not required by law. Electronically signed by: Tucker Tsang M.D. 11/07/2023 6:[address] 11/07/23 17:45 CT OF THE HEAD WITHOUT CONTRAST CLINICAL HISTORY: Syncope. COMPARISON STUDY: MRI of the brain June 08, 2012. Head CT June 02, 2017. TECHNIQUE: Helical axial images of the head were obtained without IV contrast. Automated exposure control was utilized for the study. A dose lowering technique was utilized adhering to the principles of ALARA. FINDINGS: No acute intracranial hemorrhage, midline shift or mass effect is present. The ventricular system is unremarkable. The basal cisterns are patent. No extra-axial collections are present. There are no findings to suggest acute dural sinus thrombosis or acute territorial infarct. There are no calvarial fractures. IMPRESSION: No acute intracranial findings. ACT 112: Negative or not required by law. Electronically signed by: Tucker Tsang M.D. 11/07/2023 6:05 PM Carotid Doppler Study 11/08/23 16:42 ULTRASOUND OF THE CAROTID ARTERIES CLINICAL HISTORY: Syncope. COMPARISON STUDY: Carotid ultrasound dated 06/08/2012 TECHNIQUE: Real-time, grayscale, and color Doppler sonography of the carotid arteries is performed. Images are reviewed in the transverse and longitudinal planes. FINDINGS: The carotid arteries are patent bilaterally and demonstrate antegrade flow. There is no significant atherosclerotic plaque identified. Normal doppler arterial waveforms are seen throughout. Velocity measurements are listed below. Common carotid peak systolic velocity (cm/sec): RIGHT: 65 LEFT: 63 ICA proximal peak systolic velocity (cm/sec): RIGHT: 41 LEFT: 50 ICA mid peak systolic velocity (cm/sec): RIGHT: 48 LEFT: 46 ICA distal peak systolic velocity (cm/sec): RIGHT: 58 LEFT: 47 ICA/CC peak systolic ratio: RIGHT: 0.9 LEFT: 0.8 Antegrade flow was shown in the vertebral arteries. The external carotid arteries are patent. IMPRESSION: 1. There is no sonographic evidence of hemodynamically significant stenosis in the right or left carotid arterial system. 2. Antegrade flow is shown in the vertebral arteries. ACT 112: Negative or not required by law. Electronically signed by: Randal Callaway M.D. 11/09/2023 7:53 AM Ordered Studies 11/07/23 17:44 CT angio chest PE protocol Urgent 11/07/23 17:45 CT head/brain wo con Urgent 11/08/23 16:42 Carotid duplex [US carotid doppler BI] Routine Hospital Course (1) Acute UTI (urinary tract infection): (2) COVID-19: (3) Syncope and collapse: Plan Patient is a 58-year-old male with past medical history significant for chronic pancreatitis, hypertension, neurogenic bladder who self caths, chronic prostatitis, seizures, MDD, PTSD who presents for evaluation of bodyaches, dysuria, shortness of breath and syncopal episode en route to the hospital. Patient states that he saw his urologist about 4 days ago and was told he needed to self cath once more for his history of neurogenic bladder. States that a few days later noted cloudy urine and started to develop body aches and dysuria. Also noted he was having shortness of breath especially when he takes a deep breath. Was found to be COVID-positive and with a UTI. states that while they were driving to the emergency room for further evaluation she noticed that he was slumped in his seat and did not wake up until he was in the emergency ro om. Patient states that he does not remember driving to the hospital but does remember entering the car. COVID-19 infection Patient presenting with body aches and shortness of breath --Chest CTA:No pulmonary emboli identified. No acute intrathoracic findings. Mild cardiomegaly. --Serology: + COVID-19, negative influenza, RSV Normal procalcitonin Saturating well on room air Incentive spirometry Nebs as needed Conservative management Antitussives as needed Plan to discharge home today Syncope Orthostatic hypotension Per patient had a syncopal episode in the car --CT head:No acute intracranial findings. --Positive Orthostatics --ECHO: EF 55 to 60%. Mild concentric LVH. Grade 1 diastolic dysfunction. Mild posterior mitral valve prolapse. Mild mitral regurgitation. --EEG:This is a normal awake and drowsy routine EEG. There is no evidence of epileptiform activity. --Carotid Dopplers:There is no sonographic evidence of hemodynamically significant stenosis in the right or left carotid arterial system. Antegrade flow is shown in the vertebral arteries. --No rhythm issues on monitor Amlodipine discontinued Received gentle IV fluids May need cardiac monitoring as outpatient Ruled out UTI H/O neurogenic bladder Urine culture: Negative Patient self caths at baseline Follows with urology Empirically received IV cefepime Hypokalemia Replete and monitor Other chronic conditions: Continue home medications as able Chronic pancreatitis Hypertension Seizures MDD, PTSD DVT Px: Lovenox SQ CODE STATUS Full code Total Time Total Time Spent Total Time Spent (In Minutes): 46 minutes Discharge Plan Discharge Items Patient Disposition: Home - Self-Care Reason For Visit: SYNCOPE Discharge Diagnosis: Syncope COVID-19 infection Activity: Per Instructions section Exercise/Sports: Gradually increase as tolerated Driving/Machine Use: Avoid driving while on sedating medications like Hycodan Non-emergency contact: Primary Care Provider Call non-emergency contact if: you have any medication questions, your symptoms worsen, your pain is concerning for you and you have a fever Follow-up/Referrals: Ancelmo Roche DO [Primary Care Provider] - (Date & Time 11/15/2023 2:20 PM Provider Ancelmo Roche DO Department [facility] ) Diet: Heart Healthy Addtl Attending Provider Instructions: --Follow-up with your primary care physician on 11/15/2023 2:20 PM -- Hold taking Hycodan for any excess sedation. -- Complete doxycycline course as prescribed. -- Monitor blood pressure regularly at home. Discuss with your physician for further adjustment of medications as needed. Seek immediate medical attention if your symptoms reoccur or worsen Please take all medications as instructed on discharge list below. Please call if you have any questions or problems. You can reach a [place] hospitalist on duty at [facility] 24 hours a day by calling [phone] Pending Studies at Discharge: Yes Studies:: Blood culture Stand-Alone Forms: My [facility], Smoking Cessation Medications and DC Order Prescriptions: New hydrocodone-homatropine [Hydromet] 5-1.5 mg/5 mL Syrup 5 ml PO BID PRN (Reason: cough) Qty: 100 0RF doxycycline hyclate 100 mg capsule 100 mg PO BID 5 Days Qty: 10 0RF Continued simethicone [Gas-X Extra Strength] 125 mg Capsule 125 mg PO BID PRN (Reason: Gas) alum-mag hydroxide-simeth [Maalox Advanced] 200-200-20 mg/5 mL Suspension 15 ml PO QID PRN (Reason: Gas ) epinephrine [EpiPen 2-Steven] 0.3 mg/0.3 mL Auto-Injector 0.3 mg IM Q3H PRN (Reason: Anaphylaxis) cetirizine [Zyrtec] 10 mg Tablet 10 mg PO QAM aspirin 81 mg Tablet,Delayed Release (Dr/Ec) 81 mg PO QAM ginkgo biloba 40 mg Tablet 40 mg PO QAM fluticasone propionate [Flonase Allergy Relief] 50 mcg/actuation [place],Suspension 2 spray INTRANASAL DAILY PRN (Reason: Congestion) glucosamine-chondroitin 500-400 mg Tablet 1 tab PO TIDM cranberry 500 mg Capsule 500 mg PO QAM omeprazole 20 mg Tablet,Delayed Release (Dr/Ec) 20 mg PO QAM atorvastatin 40 mg tablet 40 mg PO QAM gabapentin 300 mg capsule 300 mg PO TID doxazosin 4 mg tablet 4 mg PO HS finasteride [Proscar] 5 mg Tablet 5 mg PO HS escitalopram oxalate 20 mg tablet 20 mg PO QAM levetiracetam 500 mg tablet 500 mg PO BID Held amlodipine 5 mg Tablet 5 mg PO QAM Hold Instructions: Until further recommendations from your primary care physician. Discharge Orders: Discharge Order (Routine); Ordered 11/09/23 Ordered By: Avelino Hughes Admission Data Admit Date/Time: 11/07/23 16:21 Attending Provider: Avelino Hughes Admit Provider: Janice Renteria Primary Care Provider: Ancelmo Roche Other Providers: Janice Renteria
== END 2023-11-09 13:13 | disposition home or self-care (01) | DRG 178 ==
LOC: ED 13:50 → SUATTDRO 16:21 → EDINP 16:21 → 2N 11-08 18:40